=== PATIENT | female | born 1950 | race Hispanic/Latino ===

== ENCOUNTER 2019-12-20 11:51 | Emergency (ER) | payer BC, OTHER ==
--- OUTSIDE RECORDS SUMMARY | 2019-12-20 12:01 | XMS REPORT | Clinical Summary ---
:1950 Author Organization [facility] Address [address] [place] [address] Care Team Providers Name Role Phone Sara Tuan Primary Care Provider Allergies No Known Allergies Medications Medication Sig Dispensed Refills Start Date End Date Status cholecalciferol, Take 5,000 0 Ac tive vitamin D3, 5,000 Units by unit Tab mouth daily. magnesium oxide Take 400 mg 0 Ac tive (MAG-OX) 400 mg by mouth tablet daily. glimepiride (AMARYL) Take 1 mg by 0 Active 1 MG tablet mouth daily . furosemide (LASIX) Take 10 mg by 0 Active 20 MG tablet mouth 2 (two) times daily . lactulose Take 30 mLs 1800 mL 6 12/31/2018 Active (CHRONULAC) 20 (20 g total) gram/30 mL by mouth 2 solutionIndications: (two) times Hepatic daily. encephalopathy (HCC) esomeprazole Take 1 60 capsule 11 05/23/2019 Activ e (NEXIUM) 40 MG capsule (40 capsule mg total) by mouth 2 (two) times daily. lisinopril Take 1 tablet 30 tablet 8 08/13/2019 Acti ve (PRINIVIL,ZESTRIL) 5 (5 mg total) 1 MG by mouth tabletIndications: daily. Nausea and vomiting, intractability of vomiting not specified, unspecified vomiting type, Cirrhosis of liver with ascites, unspecified hepatic cirrhosis type (HCC), Screening for malignant neoplasm rifAXIMin 550 mg Take 1 tablet 180 tablet 3 08/14/2019 Active TabIndications: (550 mg Hepatic total) by encephalopathy (HCC) mouth 2 (two) times daily. traMADol (ULTRAM) 50 Take 50 mg by 0 Active mg tablet mouth nightly . ondansetron Take 1 tablet 30 tablet 3 08/29/2019 Act kyle (ZOFRAN-ODT) 4 MG (4 mg total) disintegrating by mouth tabletIndications: every 8 Nausea and vomiting, (eight) hours intractability of as needed for vomiting not Nausea. specified, unspecified vomiting type, Cirrhosis of liver with ascites, unspecified hepatic cirrhosis type (HCC), Screening for malignant neoplasm RESTASIS 0.05 % INSTILL ONE 5 08/31/2019 A ctive ophthalmic emulsion DROP IN BOTH EYES BID atorvastatin Take 1 tablet 90 tablet 3 12/09/2019 Ac tive (LIPITOR) 80 MG (80 mg total) tabletIndications: by mouth Cirrhosis of liver daily. with ascites, unspecified hepatic cirrhosis type (HCC) clopidogreL (PLAVIX) Take 1 tablet 90 tablet 3 12/09/2019 Active 75 mg tablet (75 mg total) 1 by mouth daily. aspirin 81 MG EC Take 81 mg by 0 Active tablet mouth daily. omeprazole Take 40 mg by 0 Disco ntinued (PRILOSEC) 40 MG mouth daily . 0 capsule atorvastatin Take 20 mg by 0 Dis continued (LIPITOR) 20 MG mouth daily. 0 tabletIndications: Cirrhosis of liver with ascites, unspecified hepatic cirrhosis type (HCC) zinc sulfate Take 1 180 capsule 3 10/24/2017 Disc ontinued (ZINCATE) 220 (50) capsule (220 0 mg mg total) by capsuleIndications: mouth 2 (two) Cirrhosis of liver times daily. with ascites, unspecified hepatic cirrhosis type (HCC) carvedilol (COREG) TK 1 T PO BID 4 01/01/2018 Discontinued 6.25 MG 0 tabletIndications: Cirrhosis of liver with ascites, unspecified hepatic cirrhosis type (HCC), Hyperkalemia, Nausea, Chronic kidney disease, unspecified CKD stage, Screening for malignant neoplasm ondansetron (ZOFRAN) Take 1 tablet 30 tablet 1 02/01/2018 Discontinued 4 MG (4 mg total) 9 tabletIndications: by mouth 2 Cirrhosis of liver (two) times with ascites, daily as unspecified hepatic needed for cirrhosis type Nausea (Take (HCC), Hyperkalemia, as needed for Nausea, Chronic nausea) for kidney disease, up to 7 days. unspecified CKD stage, Screening for malignant neoplasm rifAXIMin 550 mg Take 1 tablet 180 tablet 3 03/08/2018 01 Discontinued TabIndications: (550 mg 9 Other cirrhosis of total) by liver (HCC) mouth 2 (two) times daily. lactulose Take 30 mLs 1800 mL 6 05/30/2018 Discont inued (CHRONULAC) 20 (20 g total) 9 gram/30 mL solution by mouth 2 (two) times daily. rifAXIMin 550 mg Take 1 tablet 180 tablet 3 12/31/2018 02 Discontinued TabIndications: (550 mg 0 Hepatic total) by encephalopathy (HCC) mouth 2 (two) times daily. ondansetron (ZOFRAN) Take 1 tablet 30 tablet 1 05/06/201905/03 4 MG (4 mg total) 9 tabletIndications: by mouth 2 Cirrhosis of liver (two) times with ascites, daily as unspecified hepatic needed for cirrhosis type Nausea (Take (HCC), Hyperkalemia, as needed for Nausea, Chronic nausea) for kidney disease, up to 7 days. unspecified CKD stage, Screening for malignant neoplasm ondansetron Take 1 tablet 20 tablet 0 05/23/2019 Dis continued (ZOFRAN-ODT) 4 MG (4 mg total) 0 disintegrating by mouth 4 tablet (four) times daily as needed for Nausea. ondansetron Take 1 tablet 20 tablet 1 08/13/2019 Dis continued (ZOFRAN-ODT) 4 MG (4 mg total) 0 disintegrating by mouth 4 tabletIndications: (four) times Nausea and vomiting, daily as intractability of needed for vomiting not Nausea. specified, unspecified vomiting type, Cirrhosis of liver with ascites, unspecified hepatic cirrhosis type (HCC), Screening for malignant neoplasm aspirin 81 MG EC Take 1 tablet 90 tablet 3 12/09/2019 12/09/19 2 Discontinued tablet (81 mg total) 0 by mouth daily. aspirin 81 MG EC Take 81 mg by 0 Discontinued tablet mouth daily. 0 Active Problems Problem Noted Date Pre-transplant evaluation for chronic liver disease Pre-transplant evaluation for liver transplant 020 Last Assessment & Plan: She is an acceptable candidate for liver transplant pending formal review at [facility]. Obesity 11/20/2019 Last Assessment & Plan: She was encouraged to work on her diet a nd increase her physical activity as tolerated to aid in weight loss prior to transplant. Secondary esophageal varices without bleeding 10/28/19 Cirrhosis of liver with ascites, unspecified hepatic c irrhosis type 10/27/2017 Portal hypertension 10/27/2017 Portal vein thrombosis 10/27/2017 Last Assessment & Plan: Recent imaging shows severely atretic ma in portal vein. Past imaging from 2017 shows portal vein thrombus. Continue with foll ow up imaging as indicated. Chronic kidney disease, unspecified CKD stage 10/27/19 Last Assessment & Plan: Continue to follow up with Dr. Knowles for management of kidney disease. Immunity status testing 10/26/2017 Screening for malignant neoplasm 10/26/2017 Fatty liver 10/26/2017 Last Assessment & Plan: She has decompensated liver disease due to fatty liver disease. Bilateral edema of lower extremity 12/28/2016 DM (diabetes mellitus) 06/05/2016 Last Assessment & Plan: She will require strict blood glucose co ntrol . 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) (Primary Dx) 12/14/2019 Clinical Support Cardiology Sandoval He Preop michel Vasques MD (Primary Dx) Mahad Taylor RN 12/11/2019 Anesthesia Event Gastroenterology Josh Garcia MD 12/10/2019 Hospital Encounter Pre-Admission Testing 12/10/2019 Travel 12/09/2019 Surgery Sandoval He R & L CATH / MD Caprice CORONARY ANGIOS / PCI 12/09/2019 Hospital Encounter Sandoval He Cirrhos is of liver MD Caprice with ascites, unspecified hep atic cirrhosis type (HCC) 12/07/2019 Clinical Support Cardiology Sandoval He Preop michel Vasques MD (Primary Dx) Mahad Taylor RN 12/03/2019 Orders Only Transplant Hepatology Rafael Decker RN evaluation for liver transplant (Johana dinesh Dx) 12/03/2019 Telephone Transplant Hepatology Augustina Ogden (Spoke Dinesh Conley w/pt and erma carvalho mammogram appt scheduled 01/28 has been cancelled since pt already had mammogram done within the past year.) 11/29/2019 Abstract Transplant Hepatology Felicia Sena 11/28/2019 Documentation Transplant Dyana Bashir 11/28/2019 Abstract Transplant Hepatology Meka Rivas MA 11/27/2019 Office Visit Cardiology Sandoval He Pre-transplan t MD Caprice evaluation for liver transplant (Johana dinesh Dx) 11/27/2019 Hospital Encounter Cardiology Adriano Manisha Pre-tra nsplant evaluation for liver transplant; MD Meera Cirrhosis of li dominic with ascites, unspecified hepatic cirrhosis type (HCC) 11/27/2019 Hospital Encounter Cardiology Sandorri, Manisha Pre-tra nsplant evaluation for liver transplant; MD Meera Cirrhosis of li dominic with ascites, unspecified hepatic cirrhosis type (HCC) 11/27/2019 Hospital Encounter Cardiology Leonardaderi, Manisha Pre-tra nsplant evaluation for liver transplant; MD Meera Cirrhosis of li dominic with ascites, unspecified hepatic cirrhosis type (HCC) 11/27/2019 Hospital Encounter Radiology Khaderi, Manisha Pre-tra nsplant evaluation for liver transplant; MD Meera Cirrhosis of li dominic with ascites, unspecified hepatic cirrhosis type (HCC) 11/27/2019 Office Visit Lab Khaderi, Manisha Pre-transplan t evaluation for liver transplant; MD Meera Cirrhosis of li dominic with ascites, unspecified hepatic cirrhosis type (HCC) 11/27/2019 Orders Only Lab Khaderi, Manisha Pre-transplan t evaluation for liver transplant; MD Meera Cirrhosis of li dominic with ascites, unspecified hepatic cirrhosis type (HCC) 11/27/2019 Orders Only Lab Manisha Oh Pre-transplan t evaluation for liver transplant; MD Meera Cirrhosis of li dominic with ascites, unspecified hepatic cirrhosis type (HCC); Chronic kidney disease, unspecified CKD stage 11/27/2019 Travel 11/26/2019 Telephone Transplant Hepatology Augustina Ogden tmelillie Dinesh Conley (Confirmed 11/01 7 appts w/pt. Co v'd screening done w/pt and spouse Jeanne Manzano. ) 11/22/2019 Documentation Transplant Hepatology Nataly Decker RN 11/20/2019 Hospital Encounter Manisha Oh Pre-tra nsplant evaluation for liver transplant; MD Meera Cirrhosis of li dominic with ascites, unspecified hepatic cirrhosis type (HCC) 11/20/2019 Hospital Encounter Manisha Oh Pre-tra nsplant evaluation for liver transplant; MD Meera Cirrhosis of li dominic with ascites, unspecified hepatic cirrhosis type (HCC) 11/20/2019 Hospital Encounter Manisha Oh Pre-tra nsplant evaluation for liver transplant; MD Meera Cirrhosis of li dominic with ascites, unspecified hepatic cirrhosis type (HCC) 11/20/2019 Evaluation Transplant Hepatology Manisha Oh MD Cook, Amy 11/20/2019 Social Work Transplant Hepatology Manisha Oh MD Springer, Laura L, VACUUM CLEANER REPAIRER 11/20/2019 Evaluation Transplant Hepatology Manisha Oh Pre- transplant evaluation for liver transplant; MD Meera Chronic kidney disease, unspecified CKD stage; Julian Langford Fatty liver; Harish Rodríguez MD Portal vein thr ombosis 11/20/2019 Evaluation Transplant Hepatology Manisha Oh Pre- transplant MD Meera evaluation for liver Law, Felicia transplant (Pr imary R Dx) 11/20/2019 Clinic Visit Transplant Hepatology Bryon Wilson 11/18/2019 Telephone Transplant Hepatology Alin, Liver Transplant Dinesh Conley Pre-evaluation (Confirmed 11/01 0 eval appts w/pt . Also completed cov'd screening w/pt. Spouse Jeanne rosa will accompany the pt to clinic. Cov'd screening done for spouse also.) 11/08/2019 Hospital Encounter Radiology Barry Gonzalez Cirrhosi s of liver with ascites, unspecified hepatic cirrhosis type (HCC) (Primary Dx); MD Darci Nausea and vomi ting, intractability of vomiting not specified, unspecified vomiting type; Screening for m alignant neoplasm 11/08/2019 Orders Only Hepatology Gregory Garrido Abnormal findi ng of diagnostic imaging (Primary Dx); [place], CUSTOMS COMPLIANCE SPECIALIST Screening for m alignant neoplasm; Liver lesion, l eft lobe 11/05/2019 Telephone Central Scheduling Alin, Liver Tra nsplant Ira Pre-evaluation (Scheduled 11/01 & 11/26 eval appt s w/pt & spouse. Pt stated she is already schedul e for mri on this wee k so that was not scheduled also pt is going to schedu le mammo through h er pcp since first avail appt was January 28. Itinerary mailed.) 11/05/2019 Orders Only Transplant Hepatology Jeronimo, Screen ing for MEDINA Ingram malignant neop lasm (Primary Dx) 11/05/2019 Orders Only Transplant Hepatology Jeronimo, Cirrho sis of liver with ascites, unspecified hepatic cirrhosis type (HCC) (Primary Dx); MEDINA Ingram Pre-transplant evaluation for liver transplant; Screening for m alignant neoplasm; Chronic kidney disease, unspecified CKD stage 10/23/2019 Documentation Transplant Hepatology Alin Ira 10/21/2019 Telephone Hepatology Sina, Pqsy-ac-Ntwh LATRELL Nicole 09/17/2019 Telephone Hepatology Misha Tubbs RN 08/29/2019 Orders Only Hepatology Gregory Garrido Nausea and vom iting, intractability of vomiting not specified, unspecified vomiting type; Spring, CUSTOMS COMPLIANCE SPECIALIST Cirrhosis of li dominic with ascites, unspecified hepatic cirrhosis type (HCC); Screening for m alignant neoplasm 08/16/2019 Telephone Hepatology Gregory Garrido transplant Spring, CUSTOMS COMPLIANCE SPECIALIST evaluation discussion 08/15/2019 Telephone Hepatology Gregory Garrido referral place d Glenna, CUSTOMS COMPLIANCE SPECIALIST 08/15/2019 Abstract Transplant Hepatology Julian Langford Jr., MD 08/14/2019 Telephone Hepatology Gregory Garrido OLT referral l abs Spring, CUSTOMS COMPLIANCE SPECIALIST results 08/14/2019 Orders Only Hepatology Gregory Garrido Hepatic Spring, CUSTOMS COMPLIANCE SPECIALIST encephalopathy (HCC) 08/14/2019 Telephone Hepatology Gregory Garrido Results Spring, CUSTOMS COMPLIANCE SPECIALIST 08/13/2019 Office Visit Hepatology Barry Gonzalez Nausea and vom iting, intractability of vomiting not specified, unspecified vomiting type (Primary Dx); MD Darci Cirrhosis of li dominic with ascites, unspecified hepatic cirrhosis type (HCC); Screening for m alignant neoplasm; Hepatic encepha lopathy (HCC) 08/13/2019 Telephone Hepatology Gregory Garrido Results Spring, CUSTOMS COMPLIANCE SPECIALIST 08/12/2019 Telephone Hepatology Brittney Andino FNP 07/29/2019 Telephone Hepatology Maida Hubbard Procedure (En doscopy L (reschedule)) 05/23/2019 Office Visit Hepatology Barry Gonzalez Cirrhosis of l iver with ascites, unspecified hepatic cirrhosis type (HCC) (Primary Dx); MD Darci Screening for malignant neoplasm; Mercedes Carlson gs on diagnostic imaging of liver and biliary tract; NEYDA Villegas Portal vein thr ombosis; Portal hyperten ankush ; Secondary esoph ageal varices without bleeding ; Fatty liver; Hepatic encepha lopathy (HCC); Chronic kidney disease, unspecified CKD stage; Bilateral edema of lower extremity; Immunity status testing 05/23/2019 Documentation Hepatology Mercedes Carlson NP 05/21/2019 Telephone Hepatology Marie Holly PA 05/10/2019 Hospital Encounter Radiology Barry Gonzalez Other ci rrhosis of MD Darci liver (HCC) 05/06/2019 Orders Only Hepatology Maida Owen Cirrhosis of l iver with ascites, unspecified hepatic cirrhosis type (HCC); MELISSA Villafana Hyperkalemia; Nausea; Chronic kidney disease, unspecified CKD stage; Screening for m alignant neoplasm 04/16/2019 Refill Transplant Hepatology Byron Saunders, MEDINA encephalopathy (HCC) 12/31/2018 Office Visit Hepatology Barry Gonzalez Other cirrhosi s of liver (HCC) (Primary Dx); MD Darci Hepatic encephalopathy (HCC); [place], Line Secondary eso phageal varices without bleeding ; [place], ASSISTANT PROFESSOR OF ENGLISH Portal hyperten ankush ; Portal vein thr ombosis; Cirrhosis of li dominic with ascites, unspecified hepatic cirrhosis type (HCC); Fatty liver; Immunity status testing; Screening for m alignant neoplasm after 12/19/2018 Family History Medical History Relation Name Comments Liver disease Mother Relation Name Status Comments Mother Social History Tobacco Use Types Packs/Day Years Used Date Never Smoker Smokeless Tobacco: Never Used Alcohol Use Drinks/Week oz/Week Comments No quit 2013 Sex Assigned at Date Recorded Not on file Job Start Date Occupation Industry Not on file Not on file Not on file Travel History Travel Start Travel End No recent travel history available. Last Filed Vital Signs Vital Sign Reading Time Taken Blood Pressure 158/68 12/17/2019 7:33 AM CDT Pulse 77 12/17/2019 7:33 AM CDT Temperature 37.1 C (98.7 F) 12/17/2019 7:33 AM CDT Respiratory Rate 16 12/17/2019 7:33 AM CDT Oxygen Saturation 98% 12/17/2019 7:33 AM CDT Inhaled Oxygen Concentration - - Weight 79.1 kg (174 lb 6.4 oz) 12/16/2019 5:39 AM CDT Height 152.4 cm (5') 12/16/2019 5:39 AM CDT Body Mass Index 34.06 12/16/2019 5:39 AM CDT Plan of Treatment Date Type Specialty Care Team Description 12/25/2019 Office Visit Cardiology Sandoval He MD [address] [facility] [address] [place], [place] [address] [phone] 01/06/2020 Hospital Encounter Gastroenterology Barry Gonzalez MD [address] [address] [phone] 01/06/2020 Surgery Gastroenterology Barry Gonzalez, UPP ER ENDOSCOPY [address] [address] 0 [phone] 02/11/2020 Office Visit Hepatology Barry Gonzalez MD [address] [address] 0 [phone] Health Maintenance Due Date Last Done Comments BREAST CANCER SCREENING 1950 COLON CANCER SCREENING COLONOSCOPY 1950 DIABETIC EYE EXAM 1960 DIABETIC FOOT EXAM 1960 PNEUMOCOCCAL 65+ HIGH/HIGHEST RISK (1 2015 of 2 - PCV13) INFLUENZA VACCINE (Season Ended) 2020 HEMOGLOBIN A1C 05/29/2020 11/27/2019, 06/04/2016, 06/01/2016 Implants Implanted Type Area Manager Cosmetics Device Identifier Shelf Model / Expiration Serial / Date Lot Stent Synergy Otw [id number] - [id number] IMPLANTS Left: [place] [id number] 05/28/2021 [id number] / Implanted: Qty: 1 on 12/16/2019 by Sandoval He MD Hear t SCI:INTERV / CARDIOLOGY [id number] Procedures Procedure Name Priority Date/Time Associated Diagnosis Comme nts VASCULAR DIAGRAM 12/19/2019 7:52 -SCAN AM CDT CARDIAC CATH REPORT 12/19/2019 7:52 - SCAN AM CDT RHYTHM STRIP - SCAN 12/19/2019 7:52 AM CDT TRANSFUSION SERVICE 12/17/2019 6:12 REPORT - SCAN PM CDT POTASSIUM Routine 12/17/2019 7:41 Results for this AM CDT procedure are i n the results section. POCT-GLUCOSE METER Routine 12/17/2019 7:24 Resul ts for this AM CDT procedure are i n the results section. PROTHROMBIN TIME/INR Routine 12/17/2019 3:33 Res ults for this AM CDT procedure are i n the results section. CBC (HEMOGRAM ONLY) Routine 12/17/2019 3:33 Resu lts for this AM CDT procedure are i n the results section. BASIC METABOLIC Routine 12/17/2019 3:33 Results for this PANEL (7) AM CDT procedure are i n the results section. POCT-GLUCOSE METER Routine 12/16/2019 10:16 Resul ts for this PM CDT procedure are i n the results section. POCT-ACT Routine 12/16/2019 8:25 Results for this PM CDT procedure are i n the results section. POCT-ACT Routine 12/16/2019 6:49 Results for this PM CDT procedure are i n the results section. POCT-ACT Routine 12/16/2019 5:34 Results for this PM CDT procedure are i n the results section. POCT-ACT Routine 12/16/2019 4:13 Results for this PM CDT procedure are i n the results section. POCT-ACT Routine 12/16/2019 2:56 Results for this PM CDT procedure are i n the results section. POCT-ACT Routine 12/16/2019 12:49 Results for this PM CDT procedure are i n the results section. POCT-ACT Routine 12/16/2019 9:10 Results for this AM CDT procedure are i n the results section. POCT-ACT Routine 12/16/2019 8:24 Results for this AM CDT procedure are i n the results section. R & L CATH / 12/16/2019 7:30 Pre-op examination CORONARY ANGIOS / AM CDT PCI Case Notes (1)CASE 6TOP / [id number] Special Needs REQ. IST CASE CBC W/PLT COUNT & Routine 12/16/2019 6:02 AM Res ults for this AUTO DIFFERENTIAL CDT procedure are in the results section. TYPE AND SCREEN, Routine 12/16/2019 6:02 AM Resu lts for this AUTOMATED CDT procedure are i n the results section. PROTHROMBIN TIME/INR Routine 12/16/2019 6:02 AM Results for this CDT procedure are i n the results section. CBC W/PLT COUNT & Routine 12/16/2019 6:02 AM Res ults for this AUTO DIFFERENTIAL CDT procedure are in the results section. BASIC METABOLIC PANEL Routine 12/16/2019 6:02 AM Results for this (7) CDT procedure are i n the results section. SARS-COV2/RT-PCR Routine 12/14/2019 10:59 AM Preop testing Res ults for this ([facility] & REF LABS) CDT procedure are in the results section. CARDIAC CATH REPORT - 12/11/2019 7:30 AM SCAN CDT TRANSFUSION SERVICE 12/10/2019 6:53 PM REPORT - SCAN CDT R & L CATH / CORONARY 12/09/2019 7:30 AM Preoperative ANGIOS / PCI CDT clearance Case Notes (1)CASE 6TOP Special Needs REQ. IST CASE CBC W/PLT COUNT & STAT 12/09/2019 6:35 AM Res ults for this AUTO DIFFERENTIAL CDT procedure are in the results section. TYPE AND SCREEN, STAT 12/09/2019 6:35 AM Resu lts for this AUTOMATED CDT procedure are i n the results section. PROTHROMBIN TIME/INR STAT 12/09/2019 6:35 AM Results for this CDT procedure are i n the results section. CBC W/PLT COUNT & STAT 12/09/2019 6:35 AM Res ults for this AUTO DIFFERENTIAL CDT procedure are in the results section. SARS-COV2/RT-PCR Routine 12/07/2019 9:29 AM Preop testing Res ults for this ([facility] & REF LABS) CDT procedure are in the results section. TRANSFUSION SERVICE 11/28/2019 5:53 PM REPORT - SCAN CDT TRANSFUSION SERVICE 11/28/2019 5:53 PM REPORT - SCAN CDT NM MYOCARDIAL Routine 11/27/2019 1:00 PM Pre-transplant Resul ts for this PERFUSION SPECT, CDT evaluation for liver pro cedure are in PHARM(LEXISCAN) transplant the results Cirrhosis of liver section. with ascites, unspecified hepatic cirrhosis type (HCC) TREADMILL Routine 11/27/2019 10:42 AM Results for this TOLERANCE(NON-NUCLEAR CDT proced ure are in TREADMILL) the results section. ECG 12-LEAD Routine 11/27/2019 10:36 AM Results for this CDT procedure are i n the results section. ECG 12-LEAD Routine 11/27/2019 10:36 AM CDT Procedure Note - Interface, External Ris In - 11/27/2019 11:01 AM CDT Ventricular Rate 72 BPM Atrial Rate 72 BPM P-R Interval 148 ms QRS Duration 80 ms Q-T Interval 422 ms QTC Calculation(Bazett) 462 ms P [place] 65 degrees R [place] 67 degrees T [place] 50 degrees Normal sinus rhythm Normal ECG ECHO W CONTRAST & Routine 11/27/2019 Pre-transplant evaluati on Results for DOPPLER 9:14 AM CDT for liver transp lant this procedure Cirrhosis of liver with are in the ascites, unspecified results hepatic cirrhosis type secti on. (HCC) ECG 12-LEAD Routine 11/27/2019 Pre-transplant evaluation Re sults for 8:20 AM CDT for liver transp lant this procedure Cirrhosis of liver with are in the ascites, unspecified results hepatic cirrhosis type secti on. (HCC) CAROTID DOPPLER Routine 11/27/2019 Pre-transplant evaluation Results for BILATERAL 8:15 AM CDT for liver transp lant this procedure Cirrhosis of liver with are in the ascites, unspecified results hepatic cirrhosis type secti on. (HCC) URINALYSIS W/ Routine 11/27/2019 Pre-transplant evaluation R esults for MICROSCOPIC 7:52 AM CDT for liver transp lant this procedure Cirrhosis of liver with are in the ascites, unspecified results hepatic cirrhosis type secti on. (HCC) BLOOD GAS, ARTERIAL Routine 11/27/2019 Pre-transplant evalua tion Results for 7:32 AM CDT for liver transp lant this procedure Cirrhosis of liver with are in the ascites, unspecified results hepatic cirrhosis type secti on. (HCC) BLOOD TYPING, Routine 11/27/2019 Pre-transplant evaluation R esults for AUTOMATED 7:19 AM CDT for liver transp lant this procedure Cirrhosis of liver with are in the ascites, unspecified results hepatic cirrhosis type secti on. 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 (HCC) TYPE AND SCREEN, Routine 11/27/2019 Pre-transplant evaluatio n Results for AUTOMATED 6:59 AM CDT for liver transp lant this procedure Cirrhosis of liver with are in the ascites, unspecified results hepatic cirrhosis type secti on. (HCC) TARAN TITER AND PATTERN Routine 11/27/2019 Pre-transplant eval uation Results for 6:59 AM CDT for liver transp lant this procedure Cirrhosis of liver with are in the ascites, unspecified results hepatic cirrhosis type secti on. (HCC) CRYPTOCOCCAL ANTIGEN Routine 11/27/2019 Pre-transplant evalu ation Results for 6:59 AM CDT for liver transp lant this procedure Cirrhosis of liver with are in the ascites, unspecified results hepatic cirrhosis type secti on. 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 (HCC) RUBELLA ANTIBODY, IGG Routine 11/27/2019 Pre-transplant eval uation Results for 6:59 AM CDT for liver transp lant this procedure Cirrhosis of liver with are in the ascites, unspecified results hepatic cirrhosis type secti on. 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 (HCC) EBV ANTIBODY, IGM Routine 11/27/2019 Pre-transplant evaluati on Results for 6:59 AM CDT for liver transp lant this procedure Cirrhosis of liver with are in the ascites, unspecified results hepatic cirrhosis type secti on. 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 (HCC) HIV-1 ANTIGEN WITH Routine 11/27/2019 Pre-transplant evaluat ion Results for HIV-1/2 ANTIBODY 6:59 AM CDT for liver trans plant this procedure Cirrhosis of liver with are in the ascites, unspecified results hepatic cirrhosis type secti on. 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 (HCC) T4 Routine 11/27/2019 Pre-transplant evaluation Re sults for 6:59 AM CDT for liver transp lant this procedure Cirrhosis of liver with are in the ascites, unspecified results hepatic cirrhosis type secti on. 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 (HCC) URIC ACID Routine 11/27/2019 Pre-transplant evaluation Re sults for 6:59 AM CDT for liver transp lant this procedure Cirrhosis of liver with are in the ascites, unspecified results hepatic cirrhosis type secti on. 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 (HCC) HEMOGLOBIN A1C Routine 11/27/2019 Pre-transplant evaluation Results for 6:59 AM CDT for liver transp lant this procedure Cirrhosis of liver with are in the ascites, unspecified results hepatic cirrhosis type secti on. (HCC) LIPID PANEL Routine 11/27/2019 Chronic kidney disease, Resu lts for 6:59 AM CDT unspecified CKD stage this procedure Pre-transplant evaluation ar e in the for liver transp lant results Cirrhosis of liver with sect ion. ascites, unspecified hepatic cirrhosis type (HCC) IRON, TIBC, % SAT. Routine 11/27/2019 Pre-transplant evaluat ion Results for (WITHOUT FERRITIN) 6:59 AM CDT for liver tra nsplant this procedure Cirrhosis of liver with are in the ascites, unspecified results hepatic cirrhosis type secti on. 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 (HCC) MAGNESIUM Routine 11/27/2019 Pre-transplant evaluation Re sults for 6:59 AM CDT for liver transp lant this procedure Cirrhosis of liver with are in the ascites, unspecified results hepatic cirrhosis type secti on. (HCC) CALCIUM, IONIZED Routine 11/27/2019 Pre-transplant evaluatio n Results for 6:59 AM CDT for liver transp lant this procedure Cirrhosis of liver with are in the ascites, unspecified results hepatic cirrhosis type secti on. (HCC) GAMMA GLUTAMYL Routine 11/27/2019 Pre-transplant evaluation Results for TRANSFERASE (GGT) 6:59 AM CDT for liver soliman splant this procedure Cirrhosis of liver with are in the ascites, unspecified results hepatic cirrhosis type secti on. (HCC) BILIRUBIN, DIRECT Routine 11/27/2019 Pre-transplant evaluati on Results for 6:59 AM CDT for liver transp lant this procedure Cirrhosis of liver with are in the ascites, unspecified results hepatic cirrhosis type secti on. (HCC) COMPREHENSIVE Routine 11/27/2019 Pre-transplant evaluation R esults for METABOLIC PANEL 6:59 AM CDT for liver transp lant this procedure Cirrhosis of liver with are in the ascites, unspecified results hepatic cirrhosis type secti on. (HCC) RUBEOLA ANTIBODY IGG Routine 11/27/2019 Pre-transplant evalu ation Results for 6:58 AM CDT for liver transp lant this procedure Cirrhosis of liver with are in the ascites, unspecified results hepatic cirrhosis type secti on. (HCC) MUMPS ANTIBODY, IGG Routine 11/27/2019 Pre-transplant evalua tion Results for 6:58 AM CDT for liver transp lant this procedure Cirrhosis of liver with are in the ascites, unspecified results hepatic cirrhosis type secti on. (HCC) HEPATITIS B CORE Routine 11/27/2019 Pre-transplant evaluatio n Results for ANTIBODY, IGM 6:58 AM CDT for liver transp lant this procedure Cirrhosis of liver with are in the ascites, unspecified results hepatic cirrhosis type secti on. (HCC) HEPATITIS A ANTIBODY, Routine 11/27/2019 Pre-transplant eval uation Results for IGM 6:58 AM CDT for liver transp lant this procedure Cirrhosis of liver with are in the ascites, unspecified results hepatic cirrhosis type secti on. (HCC) HEPATITIS A ANTIBODY, Routine 11/27/2019 Pre-transplant eval uation Results for IGG 6:58 AM CDT for liver transp lant this procedure Cirrhosis of liver with are in the ascites, unspecified results hepatic cirrhosis type secti on. (HCC) T3 Routine 11/27/2019 Pre-transplant evaluation Re sults for 6:58 AM CDT for liver transp lant this procedure Cirrhosis of liver with are in the ascites, unspecified results hepatic cirrhosis type secti on. (HCC) ZINC Routine 11/27/2019 Pre-transplant evaluation Re sults for 6:58 AM CDT for liver transp lant this procedure Cirrhosis of liver with are in the ascites, unspecified results hepatic cirrhosis type secti on. (HCC) CARCINOEMBRYONIC Routine 11/27/2019 Pre-transplant evaluatio n Results for ANTIGEN (CEA) 6:58 AM CDT for liver transp lant this procedure Cirrhosis of liver with are in the ascites, unspecified results hepatic cirrhosis type secti on. (HCC) CARBOHYDRATE ANTIGEN Routine 11/27/2019 Pre-transplant evalu ation Results for 19-9 (CA 19-9) 6:58 AM CDT for liver transp lant this procedure Cirrhosis of liver with are in the ascites, unspecified results hepatic cirrhosis type secti on. (HCC) VITAMIN D, 25-HYDROXY Routine 11/27/2019 Pre-transplant eval uation Results for 6:58 AM CDT for liver transp lant this procedure Cirrhosis of liver with are in the ascites, unspecified results hepatic cirrhosis type secti on. (HCC) FERRITIN Routine 11/27/2019 Pre-transplant evaluation Re sults for 6:58 AM CDT for liver transp lant this procedure Cirrhosis of liver with are in the ascites, unspecified results hepatic cirrhosis type secti on. (HCC) TRANSFERRIN Routine 11/27/2019 Pre-transplant evaluation Re sults for 6:58 AM CDT for liver transp lant this procedure Cirrhosis of liver with are in the ascites, unspecified results hepatic cirrhosis type secti on. (HCC) ACTIN (SMOOTH MUSCLE) Routine 11/27/2019 Pre-transplant eval uation Results for ANTIBODY, IGG 6:58 AM CDT for liver transp lant this procedure Cirrhosis of liver with are in the ascites, unspecified results hepatic cirrhosis type secti on. (HCC) MITOCHONDRIA M2 Routine 11/27/2019 Pre-transplant evaluation Results for ANTIBODY (IGG) 6:58 AM CDT for liver transp lant this procedure Cirrhosis of liver with are in the ascites, unspecified results hepatic cirrhosis type secti on. (HCC) APTT Routine 11/27/2019 Pre-transplant evaluation Re sults for 6:58 AM CDT for liver transp lant this procedure Cirrhosis of liver with are in the ascites, unspecified results hepatic cirrhosis type secti on. (HCC) PROTHROMBIN TIME/INR Routine 11/27/2019 Pre-transplant evalu ation Results for 6:58 AM CDT for liver transp lant this procedure Cirrhosis of liver with are in the ascites, unspecified results hepatic cirrhosis type secti on. (HCC) FIBRINOGEN Routine 11/27/2019 Pre-transplant evaluation Re sults for 6:58 AM CDT for liver transp lant this procedure Cirrhosis of liver with are in the ascites, unspecified results hepatic cirrhosis type secti on. (HCC) XR MANDIBLE 4 VIEWS Routine 11/20/2019 Pre-transplant evalua tion Results for MIN 1:00 PM CDT for liver transp lant this procedure Cirrhosis of liver with are in the ascites, unspecified results hepatic cirrhosis type secti on. (HCC) XR CHEST 2 VIEWS Routine 11/20/2019 Pre-transplant evaluatio n Results for 12:50 PM CDT for liver transp lant this procedure Cirrhosis of liver with are in the ascites, unspecified results hepatic cirrhosis type secti on. (HCC) XR DXA BONE DENSITY Routine 11/20/2019 Pre-transplant evalua tion Results for STUDY 12:44 PM CDT for liver transp lant this procedure Cirrhosis of liver with are in the ascites, unspecified results hepatic cirrhosis type secti on. (HCC) MR ABDOMEN WITH & Routine 11/08/2019 Nausea and vomiting, Re sults for WITHOUT IV CONTRAST 10:45 AM CDT intractability of vom iting this procedure not specified, unspecified a re in the vomiting type results Cirrhosis of liver with sect ion. ascites, unspecified hepatic cirrhosis type (HCC) Screening for malignant neoplasm POCT-CREATININE Routine 11/08/2019 Results for 10:13 AM CDT this procedure are in the results section. CBC W/PLT COUNT & AUTO Routine 08/13/2019 Nausea and vomitin g, Results for DIFFERENTIAL 3:47 PM OPERATIONS PROCESSOR intractability of vomiting t his procedure not specified, unspecified a re in the vomiting type results Cirrhosis of liver with sect ion. ascites, unspecified hepatic cirrhosis type (HCC) Screening for malignant neoplasm TSH Routine 08/13/2019 Nausea and vomiting, Results for 3:47 PM OPERATIONS PROCESSOR intractability of vomiting t his procedure not specified, unspecified a re in the vomiting type results Cirrhosis of liver with sect ion. ascites, unspecified hepatic cirrhosis type (HCC) Screening for malignant neoplasm BASIC METABOLIC PANEL Routine 08/13/2019 Nausea and vomiting , Results for (7) 3:47 PM OPERATIONS PROCESSOR intractability of vomiting t his procedure not specified, unspecified a re in the vomiting type results Cirrhosis of liver with sect ion. ascites, unspecified hepatic cirrhosis type (HCC) Screening for malignant neoplasm HEPATIC FUNCTION PANEL Routine 08/13/2019 Nausea and vomitin g, Results for 3:47 PM OPERATIONS PROCESSOR intractability of vomiting t his procedure not specified, unspecified a re in the vomiting type results Cirrhosis of liver with sect ion. ascites, unspecified hepatic cirrhosis type (HCC) Screening for malignant neoplasm CBC W/PLT COUNT & AUTO Routine 08/13/2019 Nausea and vomitin g, Results for DIFFERENTIAL 3:47 PM OPERATIONS PROCESSOR intractability of vomiting t his procedure not specified, unspecified a re in the vomiting type results Cirrhosis of liver with sect ion. ascites, unspecified hepatic cirrhosis type (HCC) Screening for malignant neoplasm PROTHROMBIN TIME/INR Routine 08/13/2019 Nausea and vomiting, Results for 3:47 PM OPERATIONS PROCESSOR intractability of vomiting t his procedure not specified, unspecified a re in the vomiting type results Cirrhosis of liver with sect ion. ascites, unspecified hepatic cirrhosis type (HCC) Screening for malignant neoplasm ALPHA FETOPROTEIN Routine 08/13/2019 Nausea and vomiting, Re sults for (AFP), TUMOR MARKER 3:47 PM OPERATIONS PROCESSOR intractability of vom iting this procedure not specified, unspecified a re in the vomiting type results Cirrhosis of liver with sect ion. ascites, unspecified hepatic cirrhosis type (HCC) Screening for malignant neoplasm CBC W/PLT COUNT & AUTO Routine 05/23/2019 Cirrhosis of liver with Results for DIFFERENTIAL 10:37 AM OPERATIONS PROCESSOR ascites, unspecified this pr ocedure hepatic cirrhosis type are i n the (HCC) results section. ALPHA FETOPROTEIN Routine 05/23/2019 Screening for malignant Results for (AFP), TUMOR MARKER 10:37 AM OPERATIONS PROCESSOR neoplasm this pro cedure are in the results section. PROTHROMBIN TIME/INR Routine 05/23/2019 Cirrhosis of liver w ith Results for 10:37 AM OPERATIONS PROCESSOR ascites, unspecified this pr ocedure hepatic cirrhosis type are i n the (HCC) results section. CBC W/PLT COUNT & AUTO Routine 05/23/2019 Cirrhosis of liver with Results for DIFFERENTIAL 10:37 AM OPERATIONS PROCESSOR ascites, unspecified this pr ocedure hepatic cirrhosis type are i n the (HCC) results section. HEPATIC FUNCTION PANEL Routine 05/23/2019 Cirrhosis of liver with Results for 10:37 AM OPERATIONS PROCESSOR ascites, unspecified this pr ocedure hepatic cirrhosis type are i n the (HCC) results section. BASIC METABOLIC PANEL Routine 05/23/2019 Cirrhosis of liver with Results for (7) 10:37 AM OPERATIONS PROCESSOR ascites, unspecified this pr ocedure hepatic cirrhosis type are i n the (HCC) results section. MR ABDOMEN WITH & Routine 05/10/2019 Other cirrhosis of live r Results for WITHOUT IV CONTRAST 8:50 AM OPERATIONS PROCESSOR (HCC) this pro cedure are in the results section. POCT-CREATININE Routine 05/10/2019 Results for 8:11 AM OPERATIONS PROCESSOR this procedure are in the results section. BASIC METABOLIC PANEL Routine 12/27/2018 Cirrhosis of liver with Results for (7) 4:21 PM CDT ascites, unspecified this pr ocedure hepatic cirrhosis type are i n the (HCC) results Immunity status testing section. Cancer screening HEPATIC FUNCTION PANEL Routine 12/27/2018 Cirrhosis of liver with Results for 4:21 PM CDT ascites, unspecified this pr ocedure hepatic cirrhosis type are i n the (HCC) results Immunity status testing section. Cancer screening CBC W/PLT COUNT & AUTO Routine 12/27/2018 Cirrhosis of liver with Results for DIFFERENTIAL 4:21 PM CDT ascites, unspecified this pr ocedure hepatic cirrhosis type are i n the (HCC) results Immunity status testing section. Cancer screening PROTHROMBIN TIME/INR Routine 12/27/2018 Cirrhosis of liver w ith Results for 4:21 PM CDT ascites, unspecified this pr ocedure hepatic cirrhosis type are i n the (HCC) results Immunity status testing section. Cancer screening ALPHA FETOPROTEIN Routine 12/27/2018 Cirrhosis of liver with Results for (AFP), TUMOR MARKER 4:21 PM CDT ascites, unspecified this procedure hepatic cirrhosis type are i n the (HCC) results Immunity status testing section. Cancer screening after 12/19/2018 Results VASCULAR DIAGRAM -SCAN (12/19/2019 7:52 AM CDT) Narrative Performed At This result has an attachment that is no t available. CARDIAC CATH REPORT - SCAN (12/19/2019 7:52 AM CDT) Narrative Performed At This result has an attachment that is no t available. RHYTHM STRIP - SCAN (12/19/2019 7:52 AM CDT) Narrative Performed At This result has an attachment that is no t available. TRANSFUSION SERVICE REPORT - SCAN (12/17/2019 6:12 PM CDT)Only the most recent of4 resultswithin the time period is included. Narrative Performed At This result has an attachment that is no t available. Potassium (12/17/2019 7:41 AM CDT) Potassium 5.1 3.5 - 5.1 meq/L [facility] Specimen Blood Narrative Performed At Electronics Tech ID - FRANKIE Sawyer [facility] Performing Organization Address City/[facility]/Zipcode Phone Number [address] [address] CENTER POC-Glucose meter (12/17/2019 7:24 AM CDT)Only the most recent of2 results within the time period is included. POC-Glucose Meter 147 (H)Comment: : TESTED 70 - 110 mg/dL [facility] AT [address], [id number]: Electronics Tech/Rock Crusher Operator ID = [id number] for CANDY MILLS Specimen Blood Performing Organization Address [facility] Phone Number [address] [address] [place] Prothrombin time/INR (12/17/2019 3:33 AM CDT)Only the most recent of7 results within the time period is included. Protime 21.1 (H) 11.9 - 14.2 seconds [facility] INR 1.9 <=5.9 [facility] Specimen Blood Narrative Performed At Effective 11/28/2018: PT Reference Range [facility] Change New: 11.9-14.2Previous: 11.7-14.7 RECOMMENDED COUMADIN/WARFARIN INR THERAPY RANGES STANDARD DOSE: 2.0-3.0Includes: PROPHYLAXIS for venous thrombosis, systemic embolization; TREATMENT for venous thrombosis and/or pulmonary embolus. HIGH RISK: Target INR is 2.5-3.5 for patients wiht mechanical heart valves. Performing Organization Address City/[facility] Phone Number [address] [address] [place] CBC (Hemogram only) (12/17/2019 3:33 AM CDT) WBC 5.0 3.5 - 10.5 K/L [facility] RBC 2.42 (L) 3.93 - 5.22 M/L [facility] Hemoglobin 7.9 (L) 11.2 - 15.7 GM/DL [facility] Hematocrit 24.8 (L) 34.1 - 44.9 % [facility] MCV 102.5 (H) 79.4 - 94.8 fL [facility] MCH 32.6 (H) 25.6 - 32.2 pg [facility] MCHC 31.9 (L) 32.2 - 35.5 GM/DL [facility] RDW 15.1 (H) 11.7 - 14.4 % [facility] Platelets 59 (L) 150 - 450 K/CU MM [facility] MPV 11.9 9.4 - 12.3 fL [facility] nRBC 0 0 - 0 /100 WBC [facility] Specimen Blood Performing Organization Address City/[facility]/Zipcode Phone Number [address] [address] [place] Basic metabolic panel (12/17/2019 3:33 AM CDT)Only the most recent of5 results within the time period is included. Sodium 137 136 - 145 meq/L [facility] Potassium 5.8 (H)Comment: Specimen 3.5 - 5.1 meq/L [facility] slightly hemolyzed [facility] Chloride 114 (H) 98 - 107 meq/L [facility] CO2 19 (L) 22 - 29 meq/L [facility] BUN 27 (H) 7 - 21 mg/dL [facility] Creatinine 1.85 (H)Comment: Specimen 0.57 - 1.25 mg/dL [facility] slightly hemolyzed [facility] Glucose 117 (H) 70 - 105 mg/dL [facility] Calcium 7.3 (L) 8.4 - 10.2 mg/dL [facility] EGFR 27Comment: ESTIMATED GFR IS mL/min/1.73 sq m [facility] NOT ACCURATE [facility] CLEARANCE IN PREDICTING GLOMERULAR FILTRATION RATE. ESTIMATED GFR IS NOT APPLICABLE FOR DIALYSIS PATIENTS. Specimen Blood Narrative Performed At Electronics Tech ID - POOJA Eze [facility] Specimen slightly icteric Performing Organization Address City/State/Zipcode Phone Number [address] [phone] CENTER POC ACTIVATED CLOTTING TIME (12/16/2019 8:25 PM CDT)Only the most recent of8 resultswithin the time period is included. Activated Clotting Time 164Comment: : 74-137 sec [facility] seconds, Baseline: TESTED [facility] AT [address], [id number]: Electronics Tech/Rock Crusher Operator ID = [id number] for ASHKAN [place] Specimen Blood Performing Organization Address City/[facility]/Zipcode Phone Number [address] [address] CENTER Type and screen, automated (12/16/2019 6:02 AM CDT)Only the most recent of3 resultswithin the time period is included. ABO/RH AUTOMATED (BEAKER) O POSITIVE [facility] Ab Scrn NEGATIVE [facility] Specimen Blood Performing Organization Address City/State/Zipcode Phone Number [facility] [address] [place] [address] CBC with platelet count + automated diff (12/16/2019 6:02 AM CDT)Only the most recent of5 resultswithin the time period is included. WBC 4.7 3.5 - 10.5 K/L [facility] RBC 2.63 (L) 3.93 - 5.22 M/L [facility] Hemoglobin 8.6 (L) 11.2 - 15.7 GM/DL [facility] Hematocrit 26.8 (L) 34.1 - 44.9 % [facility] MCV 101.9 (H) 79.4 - 94.8 fL [facility] MCH 32.7 (H) 25.6 - 32.2 pg [facility] MCHC 32.1 (L) 32.2 - 35.5 GM/DL [facility] RDW 15.3 (H) 11.7 - 14.4 % [facility] Platelets 60 (L) 150 - 450 K/CU MM [facility] MPV 11.5 9.4 - 12.3 fL [facility] nRBC 0 0 - 0 /100 WBC [facility] % Neutros 53 % [facility] % Lymphs 30 % [facility] % Monos 11 % [facility] % Eos 4 % [facility] % Baso 1 % [facility] # Neutros 2.50 1.56 - 6.13 K/L [facility] # Lymphs 1.42 1.18 - 3.74 K/L [facility] # Monos 0.53 (H) 0.24 - 0.36 K/L [facility] # Eos 0.18 0.04 - 0.36 K/L [facility] # Baso 0.06 0.01 - 0.08 K/L [facility] Immature 0 0 - 1 % [facility] Granulocytes-Relative [facility] Specimen Blood Performing Organization Address City/State/Zipcode Phone Number [address] [address] CENTER SARS-CoV2/RT-PCR ([facility] Ref [facility]) (12/14/2019 10:59 AM CDT)Only the most recent of2 resultswithin the time period is included. SARS-COV2/RT-PCR Negative Not Detected, Negative [facility] NON -INTERFACED REFERENCE LABS SARS-COV-2 PERFORMING LAB CPL SLE N ON-INTERFACED REFERENCE LABS Specimen Other Performing Organization Address City/[facility] Phone Number [facility] NON-INTERFACED REFERENCE LABS CARDIAC CATH REPORT - SCAN (12/11/2019 7:30 AM CDT) Narrative Performed At This result has an attachment that is no t available. NM myocardial perfusion SPECT, pharm (11/27/2019 1:00 PM CDT) Specimen Narrative Performed At FINAL REPORT [facility] PROCEDURE:Rest/Stress MYOCAR DIAL PERFUSION SPECT with regadenoson\XA9\ CPT CODE:31900 INDICATION:Preoperative eval uation for liver transplant HISTORY:Cardiac risk factors: Diab etes, hypertension, family history. Other cardiovascular his tory: No reported CAD. PROTOCOL:10.8 mCi of Tc-99m sestamibi was injected iv at rest, and SPECT (tomographic) images were obta ined. Also, 31.3 mCi of Tc-99m sestamibi was injected iv at expe cted peak pharmacologic effect, and gated SPECT images were obta ined. PRELIMINARY STRESS TEST DATA FROM [facility]: Pharmacologic stress was by 10-second iv infusion of 0.4 mg of regadenoson. Radiotracer was injected 30 seconds after start of stress. Heart rate was 73 beats/min at r est and 86 beats/min (56 % of MPHR) at tracer injection. BP was 147/65 mmHg at rest and 138/62 mmHg at tracer injection. Stress was stopped for predetermined endpoint. The patient experienced nausea and weakn ess; treatment was not required. Preliminary ECG evaluation rev ealed sinus rhythm at rest and no ischemic changes with stress. ([facility] ECG interpretation and other stress and monitoring data are rep orted separately by Cardiology.) IMAGING FINDINGS:Study quality is good . Images obtained after rest and stress injections show normal L V activity. Patient motion artifact is noted. LV and RV volumes tasha ear normal. Gated images obtained at rest after stress show jes l LV wall motion and thickening. QGS LVEF is >70%. IMPRESSION: 1. Normal study.2. Appropriate pha rmacologic stress. 3. Normal myocardial perfusion.4. No rmal resting LV function.5. Normal extracardiac tracer distribution. 6. No prior study. Signed: José Miguel Pollard MD Report Verified Date/Time:11/27/2019 15:53:06 Reading Location: [address] Reading Room Procedure Note Interface, External Ris In - 11/27/2019 3:55 PM CDT FINAL REPORT PROCEDURE: Rest/Stress MYOCARDIAL P ERFUSION SPECT with regadenoson\XA9\ CPT CODE: 93523 INDICATION: Preoperative evaluation for liver transplant HISTORY: Cardiac risk factors: Diabetes, hypertension, family history. Other cardiovascular his tory: No reported CAD. PROTOCOL: 10.8 mCi of Tc-99m sestam ibi was injected iv at rest, and SPECT (tomographic) images were obta ined. Also, 31.3 mCi of Tc-99m sestamibi was injected iv at expe cted peak pharmacologic effect, and gated SPECT images were obta ined. PRELIMINARY STRESS TEST DATA FROM [facility]: Pharmacologic stress was by 10-second iv infusion of 0.4 mg of regadenoson. Radiotracer was injected 30 seconds after start of stress. Heart rate was 73 beats/min at r est and 86 beats/min (56 % of MPHR) at tracer injection. BP was 147/65 mmHg at rest and 138/62 mmHg at tracer injection. Stress was stopped for predetermined endpoint. The patient experienced nausea and weakn ess; treatment was not required. Preliminary ECG evaluation rev ealed sinus rhythm at rest and no ischemic changes with stress. ([facility] ECG interpretation and other stress and monitoring data are rep orted separately by Cardiology.) IMAGING FINDINGS: Study quality i s good. Images obtained after rest and stress injections show normal L V activity. Patient motion artifact is noted. LV and RV volumes tasha ear normal. Gated images obtained at rest after stress show jes l LV wall motion and thickening. QGS LVEF is >70%. IMPRESSION: 1. Normal study. 2. Appro priate pharmacologic stress. 3. Normal myocardial perfusion. 4. Norm al resting LV function. 5. Normal extracardiac tracer distribution. 6. No prior study. Signed: José Miguel Pollard MD Report Verified Date/Time: 11/27/2019 1 5:53:06 Reading Location: [address] [facility] [place] [facility] Reading Room Performing Organization Address City/State/Zipcode Phone Number GE RIS Treadmill tolerance(Non-Nuclear Treadmill) (11/27/2019 10:42 AM CDT) Specimen Narrative Performed At Protocol Name REGTRACEEOSCASSIUS GE MUSE Time In Exercise Phase 00:01:00 Max. Systolic BP 138 mmHg Max Diastolic BP 62 mmHg Max Heart Rate 86 BPM Max Predicted Heart Rate 151 BPM Reason For Termination Predetermined end point Reason for Test pre-transplant evaluatio n for liver transplant Target HR Formula (220 - Age)*100% Arrhythmias none Resting ECG Normal sinus rhythm ST Changes No Significant Changes Overall Impression Indeterminate due to pharmacological stress Nuclear data reported separately Chest Pain none HR Response To Exercise BP Response To Exercise atorvastatin, furosemide, lisinopril Confirmed by fellow Randall Ontiveros ([id number]) on 11/27/2019 12:20:58 PM Confirmed by Gilles AGUILAR BASANT ([id number]) on 11/27/2019 4: 29:31 PM Procedure Note Interface, External Ris In - 11/27/2019 4:30 PM CDT Protocol Name IFTIKHAR Time In Exercise Phase 00:01:00 Max. Systolic BP 138 mmHg Max Diastolic BP 62 mmHg Max Heart Rate 86 BPM Max Predicted Heart Rate 151 BPM Reason For Termination Predetermined end point Reason for Test pre-transplant evaluatio n for liver transplant Target HR Formula (220 - Age)*100% Arrhythmias none Resting ECG Normal sinus rhythm ST Changes No Significant Changes Overall Impression Indeterminate due to pharmacological stress Nuclear data reported separately Chest Pain none HR Response To Exercise BP Response To Exercise atorvastatin, furosemide, lisinopril Confirmed by fellow Randall Ontiveros [id number]) on 11/27/2019 12:20:58 PM Confirmed by Gilles AGUILAR BASANT ([id number]) o n 11/27/2019 4:29:31 PM Performing Organization Address City/[facility] Phone Number GE MUSE ECG 12 lead (11/27/2019 10:36 AM CDT)Only the most recent of2 resultswithin the time period is included. Specimen Narrative Performed At Ventricular Rate 72 BPM GE MUSE Atrial Rate 72 BPM P-R Interval 148 ms QRS Duration 80 ms Q-T Interval 422 ms QTC Calculation(Bazett) 462 ms P [place] 65 degrees R [place] 67 degrees T [place] 50 degrees Normal sinus rhythm Normal ECG Confirmed by MD Hua Roberto ([id number]) on 11/26 5:25:36 PM Procedure Note Interface, External Ris In - 11/27/2019 5:25 PM CDT Ventricular Rate 72 BPM Atrial Rate 72 BPM P-R Interval 148 ms QRS Duration 80 ms Q-T Interval 422 ms QTC Calculation(Bazett) 462 ms P [place] 65 degrees R [place] 67 degrees T [place] 50 degrees Normal sinus rhythm Normal ECG Confirmed by MD Hua Roberto ([id number]) on 11/27/2019 5:25:36 PM Performing Organization Address City/[facility] Phone Number GE MUSE ECHO W CONTRAST & DOPPLER (11/27/2019 9:14 AM CDT) Ejection Fraction [facility] ECHO HEAR TLAB [employer] [facility] Specimen Narrative Performed At Transthoracic Echocardiography Report (T TE) [facility] ECHO HEARTLAB [facility] Demographics Patient NameGALENTOJORDYN FrancesDate of Study11/27/2019 VIVIAN Gender Female Visit [id number] Race Unknown NumberOP Number Date of 1950 Elana Estes Physician Age 69 year(s) SonographAngel Celeste son, [facility] Sem Manager Nathan RdzMelo Noragail Interpreting Isaac chicas Physician Procedure Type of Study TTE procedure:2DECHO W/CONTRAST & DOPPLER (Routine) Indications:Pre transplant evaluation fo r liver. Clinical History Cirrhosis, PAOLA, DM, Obesity, HLD HGB 9.0 HCT 26.9 % Contrast Medium: Bubble Study. Height: 60 inches Weight: 77.56 kg (171 lbs) BSA: 1.75 m^2 BMI: 33.4 kg/m^2 HR: 72 bpm BP: 147/68 mmHg Summary Estimated LVEF by qualitative assessment is normal (>60%) . IV saline contrast injection is probably negative for a PFO (patent foramen ovale) at rest and post Valsalv a . IV saline contrast with delayed imaging is suggestive of intra pulmonic shunting. The degree of intrapulmonary shunting appears to be slight . Signature Findings Left Ventricle The left ventricle is chamber size (by PSLAX di mension) is normal (female - LVIDd 3.8-5 .2cm) . No rmal LV wall thickness. Al l of the LV segments contract normally . Gl obal LV systolic function normal . Es timated LVEF by qualitative assessment i s normal (> 60%) . Gr aubrey 2 diastolic dysfunction (moderately increased LA pressure). Left AtriumLA size is moderately enlarged (42-48 ml/m2) . Right VentricleThe right ventricular chamber size and systolic fu nction are within normal limits. Right Atrium RA cavity size is normal . Atrial SeptumIV saline contrast injection is probably negative fo r a PFO (patent foramen ovale) at rest a nd post Va lsalva . IV saline contrast with delayed imaging is desir ggestive of intra pulmonic shunting. Th e degree of intrapulmonary shunting appe ars to be sl ight . Aortic Valve Mild AoV cusp thickening. Ao V cusp mobility is normal . Mitral Valve Mild MV leaflet thickening. Mi ld mitral annular calcification. Tr ta mitral regurgitation. Tricuspid SoncyHrbb-ds-nxtfzlqi tricuspid regurgitation. Es timated peak systolic PA pressure is 45- 50 mmHg (m ild pulmonary hypertension) . Pulmonic Valve Normal PV structure and function. AortaAortic root size (SInus of Valsalva diameter) i s no rmal . PericardiumNo significant pericardial effusion is visualized. IVC/SVC/PA/PV/PleuralThe estimated RA pressure by IVC dynamics 5-10mmHg . Chambers/Structures Left Atrium LA Volume: 79.73 mlLA Area: 26.1 cm^2 LA Vol. Index: 46 ml/m^2 Left Ventricle LVIDd: 4.8 cm LV Septum Diastolic: 0.87 cm LV PW Diastolic: 0.91 cm LVOT Diameter: 1.95 cm Right Atrium RA Vol. (Sngl Plane): 5 4.12 ml Right Ventricle TAPSE: 2.36 cm Aorta Ao Root S of Noble.: 2.49 cm Doppler/Quantitative Measurements Mitral Valve MV Peak E-Wave: 1.3 m/s MV Peak A-Wave: 1.04 m/s E/A Ratio: 1. 26 Peak Gradient : 6.8 mmHg Deceleration Time: 207.3 msec MV Nick. Peak: Tissue Doppler E' Septal Velocity: 0.08 m/sE/E': 16.56 E' Lateral Velocity: 0.08 m/s Aortic Valve Peak Velocity: 1.91 m/sMean Velocity: 1.43 m/s Peak Gradient: 14.55 mmHgMean Gradient: 8.92 mmHg AV Area (continuity): 2.24 cm^2 AV VTI: 47.38 cm AV DVI: 0.75 LVOT Peak Velocity: 1.3 m/sPeak Gradient: 6.71 mmHg Mean Velocity: 0.95 m/s Mean Gradient: 4.01 mmHg LVOT Diameter: 1.95 cmLVOT VTI: 35.57 cm LVOT Area: 2.99 cm^2LVOT SV:106.18 ml LVOT CO: 7.64 l/min LVOT CI: 4.37 l/min/m^2 Tricuspid Valve TR Velocity: 3.23 m/s TR Gradient: 41.65 mmHg Procedure Note Interface, External Ris In - 11/27/2019 6:54 PM CDT Transthoracic Echocardiography Report (TTE) Demographics Patient Name JORDYN MANZANO Date o f Study 11/27/2019 VIVIAN Gender Female Visit Number [id number] Race Unknown Room N [facility] OP Number Date of 1950 Referr demetrice barajas Age 69 year(s) Sonogr ekndy Ledbetter, RDCS Sem Manager Nathan Lawrence Interp reting Karuna Tello MD Procedure Type of Study TTE procedure:2DECHO W/CONTRA ST & DOPPLER (Routine) Indications:Pre transplant evaluation fo r liver. Clinical History Cirrhosis, PAOLA, DM, Obesity, HLD HGB 9.0 HCT 26.9 % Contrast Medium: Bubble Study. Height: 60 inches Weight: 77.56 kg (171 lbs) BSA: 1.75 m^2 BMI: 33.4 kg/m^2 HR: 72 bpm BP: 147/68 mmHg Summary Estimated LVEF by qualitative assessmen t is normal (>60%) . IV saline contrast injection is probabl y negative for a PFO (patent foramen ovale) at rest and post Valsalv a . IV saline contrast with delayed imaging is suggestive of intra pulmonic shunting. The degree of intrapulmonary shunting a ppears to be slight . Signature Findings Left Ventricle The left ventric le is chamber size (by PSLAX dimension) is no rmal (female - LVIDd 3.8-5.2cm) . Normal LV wall t hickness. All of the LV se gments contract normally . Global LV systol ic function normal . Estimated LVEF b y qualitative assessment is normal (>60%) . Grade 2 diastoli c dysfunction (moderately increased LA pressure). Left Atrium LA size is moder ately enlarged (42-48 ml/m2) . Right Ventricle The right ventri cular chamber size and systolic function are wit hin normal limits. Right Atrium RA cavity size i s normal . Atrial Septum IV saline contra st injection is probably negative for a PFO (paten t foramen ovale) at rest and post Valsalva . IV saline contra st with delayed imaging is suggestive of in tra pulmonic shunting. The degree of in trapulmonary shunting appears to be slight . Aortic Valve Mild AoV cusp th ickening. AoV cusp mobilit y is normal . Mitral Valve Mild MV leaflet thickening. Mild mitral cinthia lar calcification. Trace mitral reg urgitation. Tricuspid Valve Xwsr-xz-bmuvgmwm tricuspid regurgitation. Estimated peak s ystolic PA pressure is 45-50 mmHg (mild pulmonary hypertension) . Pulmonic Valve Normal PV struct ure and function. Aorta Aortic root size (SInus of Valsalva diameter) is normal . Pericardium No significant p ericardial effusion is visualized. IVC/SVC/PA/PV/Pleural The estimated RA pressure by IVC dynamics 5-10mmHg . Chambers/Structures Left Atrium LA Volume: 79.73 ml LA Area: 26.1 cm^2 LA Vol. Index: 46 ml/m^2 Left Ventricle LVIDd: 4.8 cm LV Septum Diastolic: 0.87 cm LV PW Diastolic: 0.91 cm LVOT Diameter: 1.95 cm Right Atrium RA Vol. (Sngl Plane): 54.12 ml Right Ventricle TAPSE: 2.36 cm Aorta Ao Root S of Noble.: 2.49 cm Doppler/Quantitative Measurements Mitral Valve MV Peak E-Wave: 1.3 m/s M V Peak A-Wave: 1.04 m/s E /A Ratio: 1.26 P eak Gradient: 6.8 mmHg D eceleration Time: 207.3 msec MV Nick. Peak: Tissue Doppler E' Septal Velocity: 0.08 m/s E /E': 16.56 E' Lateral Velocity: 0.08 m/s Aortic Valve Peak Velocity: 1.91 m/s Mean Velocity: 1.43 m/s Peak Gradient: 14.55 mmHg Mean Gradient: 8.92 mmHg AV Area (continuity): 2.24 cm^2 AV VTI: 47.38 cm AV DVI: 0.75 LVOT Peak Velocity: 1.3 m/s Pea k Gradient: 6.71 mmHg Mean Velocity: 0.95 m/s Malia n Gradient: 4.01 mmHg LVOT Diameter: 1.95 cm LVO T VTI: 35.57 cm LVOT Area: 2.99 cm^2 LVO T SV:106.18 ml LVOT CO: 7.64 l/min LVO T CI: 4.37 l/min/m^2 Tricuspid Valve TR Velocity: 3.23 m/s TR Gradient: 41.65 mmHg Performing Organization Address City/State/Zipcode Phone Number [facility] [facility]DO[facility] Carotid doppler bilateral (11/27/2019 8:15 AM CDT) Ejection Fraction [facility] ECHO HEAR TLAB [facility] Specimen Impressions Performed At Right Impression [facility] 1. There is <50% diameter reduction (approximately 28% by 2-D measurement) in the internal carotid artery with a peak velocity of 92/20 cm/sec and heterogeneous plaque. 2. There is non-occluding plaque in the external carotid artery. 3. The common carotid artery is within normal limits. 4. The vertebral artery flow is antegrade and normal. 5. The subclavian artery is within normal limits where visualized. Left Impression 1. There is <50% diameter reduction (approximately 23% by 2-D measurement) in the internal carotid artery with a peak velocity of 67/13 cm/sec and heterogeneous plaque. 2. The external carotid artery is within normal limits. 3. There is non-occluding plaque in the common carotid artery. 4. The vertebral artery flow is antegrade and normal. 5. The subclavian artery is within normal limits where visualized. Conclusions Summary Carotid duplex scanning and color flow imaging were performed bilaterally. The arteries were adequately visualized. The bilateral internal carotid arteries had <50% hemodynamically insignificant stenosis (approximately 28% by 2-D measurement on the right, approximately 23% by 2-D measurement on the left) with heterogeneous plaque. The vertebral artery flow was antegrade and normal bilaterally. The subclavian arteries were patent with normal flow bilaterally where visualize d. Signature Velocities are measured in cm/s ; Diameters are measured in cm Carotid Right Measurements + +----+----+-----+ +---- + + !Location !PSV !EDV !Angle!%Stenosis 2D!%Stenosis Doppler!Tortuosity ! + +----+----+-----+ +---- + + !Prox CCA !121 !16.8!60 !! ! ! + +----+----+-----+ +---- + + !Dist CCA !100 !19.6!60 !! ! ! + +----+----+-----+ +---- + + !Prox ICA !92.5!19.6!60 !27.7% !<50% ! ! + +----+----+-----+ +---- + + !Dist ICA !118 !29.4!60 !! ! ! + +----+----+-----+ +---- + + !Prox ECA !103 !13.3!60 !! ! ! + +----+----+-----+ +---- + + !Vertebral!79.9!17.5!60 !! ! ! + +----+----+-----+ +---- + + !Prox Subclavian!196 !!60 !! ! ! + +----+----+-----+ +---- + + - There is antegrade vertebral flow noted on the right side. - Additional Measurements:ICAPSV/CCAPSV 1.18.ICAEDV/CCAEDV 1.75. Carotid Left Measurements + +----+----+-----+ +---- + + !Location !PSV !EDV !Angle!%Stenosis 2D!%Stenosis Doppler!Tortuosity ! + +----+----+-----+ +---- + + !Prox CCA !127 !19.9!60 !! ! ! + +----+----+-----+ +---- + + !Dist CCA !90.9!19.2!60 !! ! ! + +----+----+-----+ +---- + + !Prox ICA !67.5!12.6!60 !22.7% !<50% ! ! + +----+----+-----+ +---- + + !Dist ICA !102 !27.4!60 !! ! ! + +----+----+-----+ +---- + + !Prox ECA !105 !8.78!60 !! ! ! + +----+----+-----+ +---- + + !Vertebral!67.5!12.1!60 !! ! ! + +----+----+-----+ +---- + + !Prox Subclavian!198 !!60 !! ! ! + +----+----+-----+ +---- + + - There is antegrade vertebral flow noted on the left side. - Additional Measurements:ICAPSV/CCAPSV 1.12.ICAEDV/CCAEDV 1.38. Narrative Performed At [facility] - Carotid Duplex Study [facility] ECHO HEARTLAB [facility] Demographics Patient Name Valeri MANZANO of Study11/27/2019 EDMUNDO GUZMÁN [id number] Age 69 Visit Number [id number] Gender Female Accession Number [id number] [facility]1950 [facility] Interpreting Leila Hernandez MD RVS Physician Procedure Type of Study: Cerebral: Carotid, CAROTID DOPPLER, MICHAEL ATERAL. Indications for Study:Pre transplant evaluation for liver. Patient Status:Routine. Study Location:Vascular Lab. Technical Quality:Adequate visualization . Risk Factors History of Disease + + + + !Diagnosis !Date!Comments ! + + + + !History/Risk Factors: !11/27/2019!Liver cirrhosis, DM, Portal HTN ! + + + + Procedure Note Interface, External Ris In - 11/27/2019 11:08 AM CDT [facility] - Carotid Duplex Study Demographics Patient Name JORDYN MANZANO of Study 11/27/2019 EDMUNDOUIDAVID Age 69 Visit Number [id number] Gen irma Female Accession Number [id number] Thomas e of 1950 Referring Adriano Gonzalez m Number [id number] OPT Physician [employer] Printer Maxwell Garcia Int erpreting Leila Hernandez MD S Clara gunter Procedure Type of Study: Cerebral: Carotid, CAROTID DOPPLER, MICHAEL ATERAL. Indications for Study:Pre transplant natividad luation for liver. Patient Status:Routine. Study Location:Vascular Lab. Technical Quality:Adequate visualization . Risk Factors History of Disease + + +--- + !Diagnosis !Date !Com ments ! + + +--- + !History/Risk Factors: !11/27/2019!Deborah er cirrhosis, DM, Portal HTN ! + + +--- + Impressions Right Impression 1. There is <50% diameter reduction (tasha roximately 28% by 2-D measurement) in the internal carotid artery with a pe ak velocity of 92/20 cm/sec and heterogeneous plaque. 2. There is non-occluding plaque in the external carotid artery. 3. The common carotid artery is within n ormal limits. 4. The vertebral artery flow is antegrad e and normal. 5. The subclavian artery is within jes l limits where visualized. Left Impression 1. There is <50% diameter reduction (tasha roximately 23% by 2-D measurement) in the internal carotid artery with a pe ak velocity of 67/13 cm/sec and heterogeneous plaque. 2. The external carotid artery is within normal limits. 3. There is non-occluding plaque in the common carotid artery. 4. The vertebral artery flow is antegrad e and normal. 5. The subclavian artery is within jes l limits where visualized. Conclusions Summary Carotid duplex scanning and color flow imaging were performed bilaterally. The arteries were adequately visualized . The bilateral internal carotid arteries had <50% hemodynamically insig nificant stenosis (approximately 28% by 2-D measurement on the right, ap proximately 23% by 2-D measurement on the left) with heterogeneous plaque. The vertebral artery flow was antegrade and normal bilaterally. The s ubclavian arteries were patent with normal flow bilaterally where visualize d. Signature Velocities are measured in cm/s ; Diamet ers are measured in cm Carotid Right Measurements + +----+----+-----+------- -----+ + + !Location !PSV !EDV !Angle!%Stenos is 2D!%Stenosis Doppler!Tortuosity ! + +----+----+-----+------- -----+ + + !Prox CCA !121 !16.8!60 ! ! ! ! + +----+----+-----+------- -----+ + + !Dist CCA !100 !19.6!60 ! ! ! ! + +----+----+-----+------- -----+ + + !Prox ICA !92.5!19.6!60 !27.7% !<50% ! ! + +----+----+-----+------- -----+ + + !Dist ICA !118 !29.4!60 ! ! ! ! + +----+----+-----+------- -----+ + + !Prox ECA !103 !13.3!60 ! ! ! ! + +----+----+-----+------- -----+ + + !Vertebral !79.9!17.5!60 ! ! ! ! + +----+----+-----+------- -----+ + + !Prox Subclavian!196 ! !60 ! ! ! ! + +----+----+-----+------- -----+ + + - There is antegrade vertebral flow no nelly on the right side. - Additional Measurements:ICAPSV/CCAPS V 1.18.ICAEDV/CCAEDV 1.75. Carotid Left Measurements + +----+----+-----+------- -----+ + + !Location !PSV !EDV !Angle!%Stenos is 2D!%Stenosis Doppler!Tortuosity ! + +----+----+-----+------- -----+ + + !Prox CCA !127 !19.9!60 ! ! ! ! + +----+----+-----+------- -----+ + + !Dist CCA !90.9!19.2!60 ! ! ! ! + +----+----+-----+------- -----+ + + !Prox ICA !67.5!12.6!60 !22.7% !<50% ! ! + +----+----+-----+------- -----+ + + !Dist ICA !102 !27.4!60 ! ! ! ! + +----+----+-----+------- -----+ + + !Prox ECA !105 !8.78!60 ! ! ! ! + +----+----+-----+------- -----+ + + !Vertebral !67.5!12.1!60 ! ! ! ! + +----+----+-----+------- -----+ + + !Prox Subclavian!198 ! !60 ! ! ! ! + +----+----+-----+------- -----+ + + - There is antegrade vertebral flow no nelly on the left side. - Additional Measurements:ICAPSV/CCAPS V 1.12.ICAEDV/CCAEDV 1.38. Performing Organization Address [facility]/Zipcode Phone Number [facility] ECHO HEARTLAB MKCKESSON CPACS Urinalysis w/Microscopic (11/27/2019 7:52 AM CDT) Color, UA Yellow [facility] Clarity, UA Hazy [facility] Specific [place], UA 1.017 1.001 - 1.035 [facility] pH, UA 6.5 5.0 - 8.0 [facility] Protein, UA Negative Negative [facility] Glucose, UA Negative Negative [facility] Ketones, UA Negative Negative [facility] Bilirubin, UA Negative Negative [facility] Blood, UA Trace (A) Negative [facility] Nitrite, UA Negative Negative [facility] Leukocytes, UA Negative Negative [facility] Urobilinogen, UA 2.0 (H) 0.2 - 1.0 mg/dL [facility] RBC, UA 1 /HPF [facility] WBC, UA 1 /HPF [facility] Bacteria, UA Occasional [facility] Squam Epithel, UA 7 /HPF [facility] Specimen Source [facility] Specimen Urine Narrative Performed At Electronics Tech ID - [auto] [facility] Electronics Tech ID - tech Performing Organization Address [place] [facility] Phone Number [facility] [address] [address] [place] Blood gas, arterial (11/27/2019 7:32 AM CDT) pH, Arterial 7.43 7.35 - 7.45 [facility] pCO2, Arterial 33 (L) 35 - 45 mmHg [facility] pO2, Arterial 101 (H) 80 - 90 mmHg [facility] O2 Sat, Arterial 97.8 (H) 96.0 - 97.0 % [facility] HCO3, Arterial 21 21 - 29 mmol/L [facility] Base Excess, Arterial -2.5 (L) -2.0 - 3.0 mmol/L [facility] Patient Temperature 37.0 C [facility] FIO2 21.0 % [facility] Specimen Blood, Arterial Performing Organization Address City/State/Zipcode Phone Number [address] [address] [place] Blood typing, automated (11/27/2019 7:19 AM CDT) ABO/RH AUTOMATED (BEAKER) O POSITIVE [facility] Specimen Blood Performing Organization Address [facility]/Zipcode Phone Number [address] [address] [id number] Quant and Phenotype (11/27/2019 6:59 AM CDT) Specimen Blood Narrative Performed At This result has an attachment that is no t available. Performing Organization Address City/[facility]/Zipcode Phone Number [facility], [place] [address] [facility]ATED [address] [facility] T Spot TB (11/27/2019 6:59 AM CDT) T-Spot TB Negative [facility] Neg Ctrl Spot Count 0 [facility] Panel A Spot 0 [facility] Panel B Spot 0 [facility] Pos Ctrl Spot Ct 0 [facility] Scan Result [facility] Specimen Blood Narrative Performed At This result has an attachment that is no t available. Performing Organization Address City/State/Zipcode Phone Number [facility] [address] [place] [address] LAB[address]ATOR[address] Iron, TIBC, % sat. (without ferritin) (11/27/2019 6:59 AM CDT) Iron 132.0 40.0 - 160.0 ug/dL [facility] TIBC 156 (L) 250 - 450 ug/dL [facility] Iron % Saturation 85 (H) 20 - 55 % [facility] Specimen Blood Narrative Performed At Electronics Tech ID - EDMOND C [facility] Performing Organization Address City/[facility] Phone Number [address] [address] CENTER HIV-1 Antigen with HIV-1/2 Antibody (11/27/2019 6:59 AM CDT) HIV-1 Antigen with HIV 1&2 Nonreactive Nonreactive [facility] Specimen Blood Narrative Performed At Electronics Tech ID - EDMOND C [facility] Performing Organization Address City/[facility] Phone Number [address] [address] [place] Calcium, Ionized (11/27/2019 6:59 AM CDT) Calcium, Ion 1.09 (L) 1.12 - 1.27 mmol/L [facility] pH, Blood 7.36 [facility] Specimen Blood Performing Organization Address City/[facility]/Zipcode Phone Number [address] [address] CENTER Hepatitis C antibody (11/27/2019 6:59 AM CDT) Hepatitis C Ab Nonreactive Nonreactive [facility] Specimen Blood Narrative Performed At Electronics Tech ID - EDMOND Mcghee [facility] Performing Organization Address City/[facility]/Zipcode Phone Number [address] [address] [place] Cytomegalovirus antibody, IgM (11/27/2019 6:59 AM CDT) CMV IGM Negative Negative, Equivocal [facility] Specimen Blood Narrative Performed At CMV IgM Result Interpretation: [facility] </= 0.8 Al Negative 0.9-1.0 Al Equivocal >/= 1.1 Al Positive Performing Organization Address City/[facility] Phone Number [address] [address] [place] Cryptococcal antigen (11/27/2019 6:59 AM CDT) Cryptococcal Antigen, Serum Negative Negative, Interferen ce [facility] Specimen Blood Performing Organization Address City/[facility] Phone Number [address] [address] [place] TARAN Titer & Pattern (11/27/2019 6:59 AM CDT) TARAN Titer 1:160 [facility] TARAN Pattern Homogeneous [facility] Specimen Blood Performing Organization Address City/[facility] Phone Number [address] [address] [place] EBV-VCA antibody, IgM (11/27/2019 6:59 AM CDT) DAMON CASTILLO VIRAL CAPSID Negative Negative, Equivocal CH I [facility] ANTIGEN [facility] Specimen Blood Narrative Performed At Damon Castillo Viral Capsid Antigen IgM Result [facility] Interpretation: </= 0.8 Al Negative 0.9-1.0 Al Equivocal >/= 1.1 Al Positive Performing Organization Address [facility] Phone Number [address] [address] [place] EBV-VCA antibody, IgG (11/27/2019 6:59 AM CDT) DAMON CASTILLO VIRAL CAPSID Positive (A) Negative, Equivocal [facility] I [facility] ANTIGEN [facility] Specimen Blood Narrative Performed At Damon Castillo Viral Capsid Antigen IgG Result [facility] Interpretation: </= 0.8 Al Negative 0.9-1.0 Al Equivocal >/= 1.1 Al Positive Performing Organization Address [facility] Phone Number [address] [address] [place] Rubella antibody, IgG (11/27/2019 6:59 AM CDT) Rubella IgG Quant >250.0 (H) <8.0 IU/mL [facility] Specimen Blood Narrative Performed At Rubella IgG Result Interpretation: [facility] </= 7.0 IU/mL Negative - Presumed non-immune 8.0 - 9.9 IU/mL Equivocal >= 10.0 IU/mL Positive - Presumed immune Performing Organization Address [facility] Phone Number [address] [address] [place] RPR (11/27/2019 6:59 AM CDT) RPR Nonreactive Nonreactive [facility] Specimen Blood Performing Organization Address [facility] Phone Number [address] [address] [place] Cytomegalovirus antibody, IgG (11/27/2019 6:59 AM CDT) CYTOMEGALOVIRUS, IGG Positive (A) Negative, Equivocal [facility] Specimen Blood Narrative Performed At CMV IgG Result Interpretation: [facility] </= 0.8 Al Negative 0.9-1.0 Al Equivocal >/=1.1 AlPositive Performing Organization Address [facility] Phone Number [address] [address] [place] Varicella zoster antibody, IgG (11/27/2019 6:59 AM CDT) Varicella IgG 4.6 [facility] Specimen Blood Narrative Performed At VARICELLA ZOSTER RESULT INTERPRETATIONS: [facility] <=0.8 AlNonreactive:Presumed non-immune to VZV 0.9-1.0 AlEquiv ocal >=1.1 AlReactive:Presumed immune to VZV Performing Organization Address [facility] Phone Number [address] [address] [place] Anti-Nuclear Antibody (TARAN) (11/27/2019 6:59 AM CDT) TARAN Positive (A) Negative [facility] Specimen Blood Narrative Performed At Test performed by IFA method. [facility] Performing Organization Address [facility] Phone Number [address] [phone] [place] Uric acid (11/27/2019 6:59 AM CDT) Uric Acid 6.7 2.6 - 7.2 mg/dL [facility] Specimen Blood Narrative Performed At Electronics Tech ID - EDMOND C [facility] Specimen slightly icteric Performing Organization Address [facility] Phone Number [address] [address] CENTER TSH (11/27/2019 6:59 AM CDT)Only the most recent of2 resultswithin the time period is included. TSH 2.089 0.350 - 4.940 uIU/mL [facility] Specimen Blood Narrative Performed At Electronics Tech ID - EDMOND C [facility] Performing Organization Address [facility] Phone Number [address] [address] CENTER T4 (11/27/2019 6:59 AM CDT) T4, Total 5.8 4.9 - 11.7 ug/dL [facility] Specimen Blood Narrative Performed At Electronics Tech ID - EDMOND Mcghee [facility] Performing Organization Address City/[facility] Phone Number [address] [address] CENTER Phosphorus (11/27/2019 6:59 AM CDT) Phosphorus 2.9 2.3 - 4.7 mg/dL [facility] Specimen Blood Narrative Performed At Electronics Tech ID - EDMOND Mcghee [facility] Performing Organization Address [facility] Phone Number [address] [address] CENTER Magnesium (11/27/2019 6:59 AM CDT) Magnesium 1.9 1.6 - 2.6 mg/dL [facility] Specimen Blood Narrative Performed At Electronics Tech ID - EDMOND Mcghee [facility] Performing Organization Address [facility] Phone Number [address] [address] CENTER Hemoglobin A1c (11/27/2019 6:59 AM CDT) Hemoglobin A1C 6.0 4.3 - 6.1 % [facility] Specimen Blood Performing Organization Address City/[facility] Phone Number [address] [address] CENTER Gamma Glutamyl Transferase (GGT) (11/27/2019 6:59 AM CDT) GGT 204 (H) 9 - 64 U/L [facility] Specimen Blood Narrative Performed At Electronics Tech ID - EDMOND Mcghee [facility] Specimen slightly icteric Performing Organization Address City/[facility] Phone Number [facility] [address] [phone] CENTER Bilirubin, direct (11/27/2019 6:59 AM CDT) Bilirubin, Direct 1.2 (H) 0.1 - 0.5 mg/dL [facility] Specimen Blood Narrative Performed At Electronics Tech ID - EDMOND Mcghee [facility] Performing Organization Address [facility] Phone Number [address] [address] [place] Ethanol (11/27/2019 6:59 AM CDT) Ethanol Lvl <10 <=10 mg/dL [facility] Specimen Blood Narrative Performed At Electronics Tech ID - EDMOND Mcghee [facility] Performing Organization Address [facility] Phone Number [address] [address] [place] Lipid panel (11/27/2019 6:59 AM CDT) Triglycerides 174 mg/dL [facility] Cholesterol 237 mg/dL [facility] HDL 39 mg/dL [facility] LDL Calculated 163 mg/dL [facility] Specimen Blood Narrative Performed At Triglyceride Reference Range: [facility] Low Risk <150 [id number] High Risk 200-499 Very High Risk>=500 Cholesterol Reference Range: Low Risk <200 [id number] High Risk>240 HDL Cholesterol Reference Range: Low Risk >=60 High Risk <40 LDL Cholesterol Reference Range: Optimal<100 Near [id number] [id number] [id number] Very High >=190 Electronics Tech ID - EDMOND Mcghee Specimen slightly icteric Performing Organization Address [facility] Phone Number [address] [address] [place] Comprehensive metabolic panel (11/27/2019 6:59 AM CDT) Protein, Total 5.6 (L) 6.0 - 8.3 gm/dL [facility] Albumin 2.7 (L) 3.5 - 5.0 g/dL [facility] Alkaline Phosphatase 319 (H) 40 - 150 U/L [facility] Total Bilirubin 2.6 (H) 0.2 - 1.2 mg/dL [facility] Sodium 140 136 - 145 meq/L [facility] Potassium 5.0 3.5 - 5.1 meq/L [facility] Chloride 113 (H) 98 - 107 meq/L [facility] CO2 24 22 - 29 meq/L [facility] BUN 23 (H) 7 - 21 mg/dL [facility] Creatinine 1.73 (H) 0.57 - 1.25 mg/dL [facility] Glucose 99 70 - 105 mg/dL [facility] Calcium 8.6 8.4 - 10.2 mg/dL [facility] AST 60 (H) 5 - 34 U/L [facility] ALT 46 6 - 55 U/L [facility] EGFR 29Comment: ESTIMATED GFR mL/min/1.73 sq m [facility] IS NOT [facility] CREATININE CLEARANCE IN PREDICTING GLOMERULAR FILTRATION RATE. ESTIMATED GFR IS NOT APPLICABLE FOR DIALYSIS PATIENTS. Specimen Blood Narrative Performed At Electronics Tech ID - Jul [facility] Specimen slightly icteric Performing Organization Address City/State/Zipcode Phone Number [facility] [address] [place] [address] CENTER Hepatitis A antibody, IgG ([facility] Lab ONLY) (11/27/2019 6:58 AM CDT) Hep A IgG Reactive (A) Nonreactive [facility] Specimen Blood Narrative Performed At Electronics Tech HESHAM Mcghee [facility] Performing Organization Address City/State/Zipcode Phone Number [facility] [address] [place] [address] CENTER Mitochondria M2 Antibody (IgG) (11/27/2019 6:58 AM CDT) Mitochondria M2 Ab <20.0 See Note: U [facility] Comment: Reference Range: NEGATIVE:< OR = 20.0 EQUIVOCAL: 20.1-24.9 POSITIVE:> OR = 25.0 Specimen Blood Narrative Performed At Performing Lab [facility] [place] [address] [place] [address] Brett Sarmiento MD, PhD, MAGDALENA Performing Organization Address [facility] Phone Number [employer] [place], [place] [address] INCORPORATED [address] [employer] Actin (Smooth Muscle) Antibody, IgG (11/27/2019 6:58 AM CDT) Anti-Smooth Muscle Ab <20 See Note: U [facility] Comment: INCORPORATED Reference Range: <20 NEGATIVE > OR = 20 POSITIVE Antibodies recognizing actin are the main compon ent of smooth muscle antibodies associated with autoimmune liver disease. Actin antibodies are found in approximately 75% of patients with autoimmune hepatitis (AIH) type 1, approximately 65% of patients with autoimmune cholangitis, approximately 30% of patients with primary bilia ry cirrhosis, and approximately 2% of healthy peopl e. High values are closely correlated with AIH type 1. Specimen Blood Narrative Performed At Performing Lab [facility] [employer] [address] [address] [place] [address] Brett Sarmiento MD, PhD, MAGDALENA Performing Organization Address [facility]/Rustde Phone Number [employer] [place], [place] [address] INCORPORATED [address] [employer] Hepatitis A antibody, IgM (11/27/2019 6:58 AM CDT) Hep A IgM Indeterminate (A) Nonreactive [facility] Specimen Blood Narrative Performed At Electronics Tech ID - EDMOND Mcghee [facility] Electronics Tech ID - FRANKIE Sawyer Electronics Tech ID - FRANKIE Sawyer Electronics Tech ID - FRANKIE Sawyer Performing Organization Address City/[facility] Phone Number [facility] [address] [place] [address] CENTER Carbohydrate antigen 19-9 (CA 19-9) (11/27/2019 6:58 AM CDT) CA 19-9 87 (H) <34 U/mL [facility] Comment: This test was performed using the Siemens Chemil uminescent method. Values obtained from different assay methods can not be used interchangeably. CA19-9 levels, regardless of value, should not b e interpreted as absolute evidence of the presence or absence of disease. Specimen Blood Narrative Performed At Performing Lab [facility] [employer] [facility] [address] [address] [place] [address] I Torsten STOVALL, PhD, MAGDALENA Performing Organization Address City/[facility] Phone Number [facility] [place], [place] [address] INCORPORATED [address] [facility] Rubeola antibody IgG (11/27/2019 6:58 AM CDT) Rubeola Ab, Igg >300.00 AU/mL [facility] Comment: INCORPORATED REFERENCE RANGE:<13.50AU/mL AU/mL I nterpretation ====== <13.50 Negative 13.50-16.49 Equivocal >16.49 Positive A positive result indicates that the patient has antibody to measles virus. It does not differentiate between an active or past infectio n. The clinical diagnosis must be interpreted in conjunction with clinical signs and symptoms of the patient. For additional information, please refer to http://education.AccurIC/faq/YQD032 (This link is being provided for informational/ educational purposes only.) Specimen Blood Narrative Performed At Performing Lab [employer] *QDID [employer] [employer] [address] [place] [address] Sujey Dewitt MD Performing Organization Address City/[facility]/Zipcode Phone Number [facility] [place] [address] INC[facility]ATED [address] [facility] Zinc (11/27/2019 6:58 AM CDT) Zinc 30 (L) 60 - 130 mcg/dL [facility] Comment: INCORPORATED This test was developed and its analytical perfo rmance characteristics have been determined by [employer]. It has not been cleared or approved by the FDA. This assay has been validated pursuant to [facility] CLIA regulations and is used for clinical purposes. Specimen Blood Narrative Performed At Performing Lab [facility] *NOBLE [employer] [facility], [address] [place] [id number] Gentry Fink MD, PhD Performing Organization Address [facility] Phone Number [facility] [place] [address] [employer]ATED [address] [facility] Hepatitis B core antibody, IgM (11/27/2019 6:58 AM CDT) Hep B C IgM Nonreactive Nonreactive [facility] Specimen Blood Narrative Performed At Electronics Tech ID - EDMOND Mcghee [facility] Performing Organization Address [facility] Phone Number [address] [address] CENTER Vitamin D, 25-Hydroxy (11/27/2019 6:58 AM CDT) Vitamin D 25-Hydroxy 21.1 6.6 - 49.9 ng/mL [facility] Specimen Blood Narrative Performed At Effective 04/12/2017: Reference Range Ch shaka [facility] New: 6.6-49.9 ng/mL Previous: 13.0-47.8 ng/mL Recommended Vitamin D Target Range: 30.0-40.0 ng/mL Electronics Tech ID Elena Mcghee Performing Organization Address [facility]/Zipcode Phone Number [address] [address] CENTER aPTT (11/27/2019 6:58 AM CDT) PTT 38.5 (H) 22.5 - 36.0 seconds [facility] Specimen Blood Performing Organization Address City/[facility]/Zipcode Phone Number [address] [address] [place] Fibrinogen (11/27/2019 6:58 AM CDT) Fibrinogen 163 (L) 225 - 434 mg/dl [facility] Specimen Blood Performing Organization Address [facility] Phone Number [address] [address] [place] Mumps antibody, IgG (11/27/2019 6:58 AM CDT) Mumps Ab Igg >300.00 AU/mL [facility] Comment: REFERENCE RANGE: <9.00 AU/mLInterpretation <9.00Negative 9.00-10.99 Equivocal >10.99 Positive A positive result indicates that the patient has antibody to mumps virus. It does not differentia te between an active or past infection.The clin ical diagnosis must be interpreted in conjunction wit h clinical signs and symptoms of the patient. Specimen Blood Narrative Performed At Performing Lab [facility] *QDID [employer] Infectious Di [facility] [address] [place] [phone] H Gentry Dewitt MD Performing Organization Address [facility] Phone Number [facility] [place] [address] [place] [address] T3 (11/27/2019 6:58 AM CDT) T3, Total 95 48 - 159 ng/dL [facility] Specimen Blood Narrative Performed At T3,Total=ng/dl [facility] Reference Range 76-181 ng/dl Test performed by [employer] Performing Organization Address [facility] Phone Number [facility] [address] [place] [address], [place] Transferrin (11/27/2019 6:58 AM CDT) Transferrin 124 (L) 174 - 382 mg/dL [facility] Specimen Blood Narrative Performed At Electronics Tech ID - EDMOND Mcghee [facility] Specimen slightly icteric Performing Organization Address City/State/Zipcode Phone Number [address] [address] CENTER Ferritin (11/27/2019 6:58 AM CDT) Ferritin 383.27 (H) 5.00 - 275.00 ng/mL [facility] Specimen Blood Narrative Performed At Electronics Tech ID - EDMOND Mcghee [facility] Performing Organization Address City/[facility]/Zipcode Phone Number [address] [address] [place] Carcinoembryonic Antigen (CEA) (11/27/2019 6:58 AM CDT) CEA, SERUM 9.1 (H) 0.0 - 5.0 ng/mL [facility] Specimen Blood Narrative Performed At Electronics Tech ID - EDMOND Mcghee [facility] CENTER Performing Organization Address City/[facility] Phone Number [address] [address] [place] XR mandible 4 views min (11/20/2019 1:00 PM CDT) Specimen Narrative Performed At FINAL REPORT GE RIS TECHNIQUE: Five views of the mandible da nelly 11/20/2019 HISTORY: Pretransplant evaluation COMPARISON: None IMPRESSION: No displaced fracture. Temporomandibular joints are grossly unremarkable. No lytic or sclerotic lesi on visualized. No radiodense foreign body or subcutaneous emphysema. Signed: Christopher Ocampo MD Report Verified Date/Time:11/20/2019 14:15:05 Reading Location: [address] Radiolog y Reading Room Procedure Note Interface, External Ris In - 11/20/2019 2:17 PM CDT FINAL REPORT TECHNIQUE: Five views of the mandible da nelly 11/20/2019 HISTORY: Pretransplant evaluation COMPARISON: None IMPRESSION: No displaced fracture. Temporomandibular joints are grossly unremarkable. No lytic or sclerotic lesi on visualized. No radiodense foreign body or subcutaneous emphysema. Signed: Christopher Ocampo MD Report Verified Date/Time: 11/20/2019 1 4:15:05 Reading Location: [facility] [address] Radiolog y Reading Room Performing Organization Address [facility] [place] Phone Number GE [facility] XR chest 2 views (11/20/2019 12:50 PM CDT) Specimen Narrative Performed At FINAL REPORT [facility] TECHNIQUE: Frontal and lateral chest rad iographs dated 11/20/2019. CLINICAL HISTORY: Pre transplant eval COMPARISON STUDY: None FINDINGS: Lungs are clear. No pleural effusion or pneumothorax. Cardiomediastinal silhouette is normal i n size. No pulmonary edema. Degenerative changes are seen in the spi ne. IMPRESSION: Clear lungs. Signed: Christopher Ocampo MD Report Verified Date/Time:11/20/2019 14:12:07 Reading Location: [address] Reading Room Procedure Note Interface, External Ris In - 11/20/2019 2:14 PM CDT FINAL REPORT TECHNIQUE: Frontal and lateral chest rad iographs dated 11/20/2019. CLINICAL HISTORY: Pre transplant eval COMPARISON STUDY: None FINDINGS: Lungs are clear. No pleural effusion or pneumothorax. Cardiomediastinal silhouette is normal i n size. No pulmonary edema. Degenerative changes are seen in the spi ne. IMPRESSION: Clear lungs. Signed: Christopher Ocampo MD Report Verified Date/Time: 11/20/2019 1 4:12:07 Reading Location: [address] Reading Room Performing Organization Address [facility] Phone Number GE RIS XR dxa bone density study (11/20/2019 12:44 PM CDT) Specimen Narrative Performed At FINAL REPORT GE [facility] Bone density study, 11/20/2019 Clinical History:Screening Bone mineral density measurement Lumbar spine1.130 gm/cm2 Femoral neck0.880 gm/cm2 Standard deviation from young adult popu lation (T-score) Lumbar spine-0.4 Femoral neck-1.1 Standard deviation for age adjusted popu lation (Z-score) Lumbar spine0.8 Femoral neck0.3 According to medical literature, this co rresponds to no increased risk of an osteoporotic fracture of the lumbar spine as compared to the young adult population. The femoral neck bone mineral density corresponds to 1-2 times increased risk of an osteoporotic fracture as compared to the young adult populatio n. Impression:Osteopenia of the femoral neck.Complete computer analysis will be sent shortly. Diagnostic criteria for osteoporosis BMD:Bone mineral density Normal: BMD measurement less than one st andard deviation from young adult population Osteopenia: BMD measurement between 1 an d 2.5 standard deviations Osteoporosis: BMD measurement greater th an 2.5 standard deviations Severe osteoporosis: Osteoporosis and on e or more fragility fractures Signed: Alonso Ibrahim MD Report Verified Date/Time:11/20/2019 13:50:28 Reading Location: [address] Re ading Room Procedure Note Interface, External Ris In - 11/20/2019 1:52 PM CDT FINAL REPORT Bone density study, 11/20/2019 Clinical History: Screening Bone mineral density measurement Lumbar spine1.130 gm/cm2 Femoral neck0.880 gm/cm2 Standard deviation from young adult popu lation (T-score) Lumbar spine-0.4 Femoral neck-1.1 Standard deviation for age adjusted popu lation (Z-score) Lumbar spine0.8 Femoral neck0.3 According to medical literature, this co rresponds to no increased risk of an osteoporotic fracture of the lumbar spine as compared to the young adult population. The femoral neck bone mineral density corresponds to 1-2 times increased risk of an osteoporotic fracture as compared to the young adult populatio n. Impression: Osteopenia of the femoral n anai. Complete computer analysis will be sent shortly. Diagnostic criteria for osteoporosis BMD: Bone mineral density Normal: BMD measurement less than one st andard deviation from young adult population Osteopenia: BMD measurement between 1 an d 2.5 standard deviations Osteoporosis: BMD measurement greater th an 2.5 standard deviations Severe osteoporosis: Osteoporosis and on e or more fragility fractures Signed: Alonso Ibrahim MD Report Verified Date/Time: 11/20/2019 1 3:50:28 Reading Location: [address] Mammo Re [address]ing Room Performing Organization Address City/State/Zipcode Phone Number [facility] MR abdomen with/without IV contrast (11/08/2019 10:45 AM CDT)Only the most recent of2 resultswithin the time period is included. Specimen Narrative Performed At FINAL REPORT [facility] TECHNIQUE: MRI of the abdomen WITHOUT an d WITH intravenous contrast. INDICATION: 69-year-old woman with cirrh osis. COMPARISON: Abdomen MRI 05/10/2019. FINDINGS: LOWER THORAX: Unremarkable. LIVER: Cirrhotic morphology of the liver . No suspicious hepatic lesions. No significant change in size o f the 1.2 cm linear arterially enhancing focus in the left h epatic lobe without corresponding washout or pseudocapsule ( axial postcontrast arterial series image 49). Apparent 1.1 x 0.9 cm arterially enhancing focus in the left hepatic lobe was not clearly vi sualized on prior exam and does not have associated washout or pseu docapsule (axial postcontrast arterial series image 53). Unchanged sub centimeter cyst in the left hepatic lobe. BILIARY: Prior cholecystectomy. No signi ficant change in prominence of the common bile duct, which measures up to 1.4 cm. No intrahepatic biliary ductal prominence. SPLEEN: No splenomegaly. PANCREAS: No significant change in unilo cular cystic lesions in the pancreas which measure 0.6 cm at the bod y/neck junction and 1.1 x 1 cm in the pancreatic tail. No ductal dil atation. ADRENALS: No adrenal nodules. KIDNEYS/URETERS: No hydronephrosis or so lid mass lesions. Unchanged subcentimeter cysts in both kidneys. PERITONEUM/RETROPERITONEUM: No free flui d. LYMPH NODES: No lymphadenopathy. VESSELS: Unchanged diminutive portal vei ns. Main portal vein measures 0.5 cm in diameter. Superior mesenteric and splenic veins are widely patent. Esophageal and perisplenic varic es. Abdominal aorta is normal in caliber. GI TRACT: No distention or wall thickeni ng. BONES AND SOFT TISSUES: Unremarkable. IMPRESSION: Cirrhosis with portal hypertension. No suspicious liver lesion. Indeterminat e arterially enhancing foci in the left hepatic lobe. No significant change in prominence of t he common duct, likely postcholecystectomy reservoir effect. No significant change in the pancreatic cystic lesions which measure up to 1.1 cm. RECOMMENDATION: Follow-up abdomen MRI with and without i ntravenous contrast (liver protocol) may be obtained in 6 months fo r reassessment. Signed: Melissa Guzmán MD Report Verified Date/Time:11/08/2019 15:13:09 Reading Location: [facility] C013Y CT Body R eading Room Procedure Note Interface, External Ris In - 11/08/2019 3:15 PM CDT FINAL REPORT TECHNIQUE: MRI of the abdomen WITHOUT an d WITH intravenous contrast. INDICATION: 69-year-old woman with cirrh osis. COMPARISON: Abdomen MRI 05/10/2019. FINDINGS: LOWER THORAX: Unremarkable. LIVER: Cirrhotic morphology of the liver . No suspicious hepatic lesions. No significant change in size o f the 1.2 cm linear arterially enhancing focus in the left h epatic lobe without corresponding washout or pseudocapsule ( axial postcontrast arterial series image 49). Apparent 1.1 x 0.9 cm arterially enhancing focus in the left hepatic lobe was not clearly vi sualized on prior exam and does not have associated washout or pseu docapsule (axial postcontrast arterial series image 53). Unchanged sub centimeter cyst in the left hepatic lobe. BILIARY: Prior cholecystectomy. No signi ficant change in prominence of the common bile duct, which measures up to 1.4 cm. No intrahepatic biliary ductal prominence. SPLEEN: No splenomegaly. PANCREAS: No significant change in unilo cular cystic lesions in the pancreas which measure 0.6 cm at the bod y/neck junction and 1.1 x 1 cm in the pancreatic tail. No ductal dil atation. ADRENALS: No adrenal nodules. KIDNEYS/URETERS: No hydronephrosis or so lid mass lesions. Unchanged subcentimeter cysts in both kidneys. PERITONEUM/RETROPERITONEUM: No free flui d. LYMPH NODES: No lymphadenopathy. VESSELS: Unchanged diminutive portal vei ns. Main portal vein measures 0.5 cm in diameter. Superior mesenteric and splenic veins are widely patent. Esophageal and perisplenic varic es. Abdominal aorta is normal in caliber. GI TRACT: No distention or wall thickeni ng. BONES AND SOFT TISSUES: Unremarkable. IMPRESSION: Cirrhosis with portal hypertension. No suspicious liver lesion. Indeterminat e arterially enhancing foci in the left hepatic lobe. No significant change in prominence of t he common duct, likely postcholecystectomy reservoir effect. No significant change in the pancreatic cystic lesions which measure up to 1.1 cm. RECOMMENDATION: Follow-up abdomen MRI with and without i ntravenous contrast (liver protocol) may be obtained in 6 months fo r reassessment. Signed: Melissa Guzmán MD Report Verified Date/Time: 11/08/2019 1 5:13:09 Reading Location: [address] Body R eading Room Performing Organization Address City/State/Zipcode Phone Number GE [facility] POC-Creatinine (11/08/2019 10:13 AM CDT)Only the most recent of2 resultswithin the time period is included. POC-Creatinine 1.8 (H)Comment: : TESTED 0.6 - 1.3 mg/dL [facility] [id number] [facility] [id number]: Electronics Tech/Rock Crusher Operator ID = [id number] for Indira Villaian POC-EGFR 28 mL/min/1.73M2 [facility] Specimen Blood Performing Organization Address City/State/Zipcode Phone Number [address] [address] CENTER Alpha fetoprotein (AFP), tumor marker (08/13/2019 3:47 PM OPERATIONS PROCESSOR)Only the most recent of3 resultswithin the time period is included. Alpha-Fetoprotein 3.5 <10.0 ng/mL [facility] Specimen Blood Narrative Performed At Electronics Tech ID - BS [facility] Performing Organization Address City/[facility]/Zipcode Phone Number [facility] [address] [place] [address] [place] Hepatic function panel (08/13/2019 3:47 PM OPERATIONS PROCESSOR)Only the most recent of3 results within the time period is included. Protein, Total 5.9 (L) 6.0 - 8.3 gm/dL [facility] Albumin 2.7 (L) 3.5 - 5.0 g/dL [facility] Total Bilirubin 2.9 (H) 0.2 - 1.2 mg/dL [facility] Bilirubin, Direct 1.4 (H) 0.1 - 0.5 mg/dL [facility] Alkaline Phosphatase 375 (H) 40 - 150 U/L [facility] AST 74 (H) 5 - 34 U/L [facility] ALT 43 6 - 55 U/L [facility] Specimen Blood Narrative Performed At Electronics Tech ID - BS [facility] Specimen slightly icteric Performing Organization Address City/[facility]/Zipcode Phone Number [facility] [address] [place] [address] [place] CBC with platelet count + automated diff (12/27/2018 4:21 PM CDT) WBC 4.2 3.8 - 10.8 Thousand/uL [facility] RBC 3.23 (L) 3.80 - 5.10 Million/uL [facility] Hemoglobin 11.1 (L) 11.7 - 15.5 g/dL [facility] Hematocrit 32.1 (L) 35.0 - 45.0 % [facility] MCV 99.4 80.0 - 100.0 fL [place] MCH 34.4 (H) 27.0 - 33.0 pg [facility] MCHC 34.6 32.0 - 36.0 g/dL [place] RDW 13.5 11.0 - 15.0 % [facility] Platelets 86 (L) 140 - 400 Thousand/uL [facility] MPV 10.7 7.5 - 12.5 fL [facility] # Neutros 2,041 1,500 - 7,800 cells/uL [facility] # Lymphs 1,470 850 - 3,900 cells/uL [facility] # Monos 441 200 - 950 cells/uL [facility] # Eos 189 15 - 500 cells/uL [facility] # Baso 59 0 - 200 cells/uL [place] % Neutros 48.6 % [place] % Lymphs 35.0 % [place] % Monos 10.5 % [place] % Eos 4.5 % [place] % Baso 1.4 % [facility] Specimen Blood Narrative Performed At FASTING:NO [facility] FASTING: NO Resulting Agency Comment Performing Organization Information: Site ID: [id number] Name: [facility] Address: [address] [place] [id number] Director: Rosa Maria Amaya Performing Organization Address City/State/[facility] Phone Number [facility] [address] [place] [address] [place] after 12/19/2018 Insurance Payer Benefit Plan / Subscriber ID Type Phone Address Group BLUE CROSS/BLUE BCBS PPO POS EPO xxxxxxxxxxxx PPO [phone] [address] [place] [address] CDCREVIEW CDCREVIEW xxxxx[place] [address] Advance Directives Patient has advance care planning documents, and code status on file. For more information, please contact:[address] [phone] Code Status Date Activated Date Inactivated Comments Full Code 12/16/2019 5:48 AM 12/17/2019 12:33 PM This code status was determined by: Patient Full Code 12/09/2019 5:58 AM 12/09/2019 7:49 PM This code status was determined by: Patient Full Code 06/01/2016 5:35 PM 06/05/2016 3:51 PM This code status was determined by: Patient
--- OUTSIDE RECORDS SUMMARY | 2019-12-20 12:08 | XMS REPORT | Continuity of Care Document ---
:1950 Author Organization [facility] t Address [address] [place] [address] Dr. [address] [place] [address] Care Team Providers Name Role Phone John Ruizramosgracie Primary Care Physician Jeronimo HANEY Attending Clinician Unavailable Caprice He MD Attending Clinician Anish HANEY, A Attending Clinician Unavailable Caprice HE Attending Clinician Unavailable Gentry Taylor RN Attending Clinician Unavailable Moe Garcia MD Attending Clinician Yael Ogden Attending Clinician Unavailable Caprice Sena Attending Clinician Unavailable Mckay Attending Clinician Unavailable Evelyn CAMPOS Attending Clinician Unavailable Humble Oh MD Attending Clinician HUMBLE OH Attending Clinician Unavailable Harish Langford MD Attending Clinician Ajay Hassan LCSW Attending Clinician Unavailable Milton Attending Clinician Unavailable Steve Attending Clinician Unavailable Darci Gonzalez MD Attending Clinician DARCI GONZALEZ Attending Clinician Unavailable Glenna Garrido NP Attending Clinician Maribeth Mcdonald Attending Clinician Arley HANEY Attending Clinician Unavailable Ajay Hubbard Attending Clinician Unavailable Nelly Carlson NP Attending Clinician Nelly Nick Attending Clinician Broderick Owen PA-C Attending Clinician Chpi HANEY Attending Clinician Unavailable Alfred Morales Attending Clinician SALINAS STEVENS Attending Clinician Unavailable SUZANNE GONZALEZ Attending Clinician Unavailable Caprice HE Admitting Clinician Unavailable DARCI GONZALEZ Admitting Clinician Unavailable Payers Payer Name Policy Policy Number Effective Expiration Source Type Date Date BLUE CROSS/BLUE SHIELDBCBS PPO xxxxxxxxxxxx [facility] - [id number] [facility] [address] [id number] CDCREVIEWCDCREVIEWxxxxxxxxPO [place] [address] [facility] Center Problems Condition Condition Condition Status Onset Resolution Last Treating Co mments Source Name Details Category Date Date Treatment Clinician Date Pre-transp Pre-transp Disease Active [facility] 6[facility]08 [facility] - evaluation evaluation 00:00: Ca dical for for 00 Center chronic chronic liver liver disease disease Pre-transp Pre-transp Disease Active Last [facility] evaluation evaluation 00:00: t & Plan: Medical for liver for liver 00 She is an C enter transplant transplant acceptabl e candidate for liver transplan t pending formal review at [facility]. Obesity Obesity Disease Active Last [facility] - 00:00: t & Plan: Medical 00 She was Center encourage d to work on her diet and increase her physical activity as tolerated to aid in weight loss prior to transplan t. 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 Continue with follow up imaging as indicated . Chronic Chronic Disease Active [facility] kidney kidney 10-26 [facility] - disease, disease, 00:00: t & Plan: Med ical unspecifie unspecifie 00 Continue Center d CKD d CKD to follow stage stage up with Dr. Knowles for critical access hospital of kidney disease. Screening Screening Disease Active [facility] for for 10-26 [facility] - malignant malignant 00:00: [facility] dipesh neoplasm neoplasm 00 Center Fatty Fatty Disease Active [facility] St liver liver 10-26 [facility] - 00:00: t & Plan: Medical 00 She has Center decompens ated liver disease due to fatty liver disease. Bilateral Bilateral Disease Active [facility] edema of edema of 6-28 [facility] - lower lower 00:00: Medical extremity extremity 00 Cent er DM DM Disease Active 2015-07 [facility] (diabetes (diabetes 2-04 [facility] - mellitus) mellitus) 00:00: t & Plan: edical 00 She will Center require strict blood glucose control . Cirrhosis Cirrhosis Disease Active 2015-07 [facility] of liver of liver 08-03 [facility] - with with 00:00: Medical ascites ascites 00 Center PAOLA (acute PAOLA (acute Disease Active 2015-[address] kidney kidney 08-03 [facility] - injury) injury) 00:00: Medical 00 [place] Hepatic Hepatic Disease Active 2015-07 [facility] encephalop encephalop 1-30 [facility] - athy athy 00:00: Medical 00 Center Allergies, Adverse Reactions, Alerts This patient has no known allergies or adverse reactions. Family History Family Member Diagnosis Comments Start Date Stop Date Source Natural mother Liver disease [facility] Social History Social Habit Start Date Stop Date Quantity Comments Source Sex Assigned At [facility] Alcohol Comment 2018-08-02 2018-08-02 quit 2013 [facility] 00:00:00 00:00:00 [facility] Smoking Status Start Date Stop Date Source Never smoker [facility] Medications Ordered Filled Start Stop Current Ordering Indication Dosage Frequency Signature Comments Components Source Medication Medication Date Date Medication? Clinician (SIG) Name Name omeprazole 2019-0 2020- No 40mg QD Take [address] (PRILOSEC) 12-1515 by mouth Luke s - 40 MG 06:19: 00:00 daily . Medical capsule 03 :00 Center aspirin 81 Yes 81mg QD Take [address] MG EC -12 by mouth [facility] - tablet 14:09: daily. Medical 26 Center traMADol Yes 50mg QD Take [address] (ULTRAM) 50 09 by mouth Luke s - mg tablet 15:20: nightly . Med ical 19 Center aspirin 81 0 2020- No 81mg QD Take [address] MG EC 12-09 by mouth [facility] - tablet 15:20: 09:45 daily. Medical 19 :39 [place] atorvastati 2019- No Cirrhosis 20mg QD Take [address] n (LIPITOR) 12-08 of liver by mouth [facility] - 20 MG 08:55: 00:00 with daily. Medical tablet 01 :00 ascites, Center unspecified hepatic cirrhosis type (HCC) atorvastati Yes Cirrhosis 80mg QD Take [address] n (LIPITOR) 12-08 of liver tablet (80 [facility] - 80 MG 00:00: with mg total) Medical tablet 00 ascites, by mouth Cente r unspecified daily. hepatic cirrhosis type (HCC) clopidogreL 2020- Yes 75mg QD Take [address] (PLAVIX) 75 12-08-08 tablet (75 L ukes - mg tablet 00:00: 23:59 mg total) Me dical 00 :00 by mouth Center daily. aspirin 81 2019- No 81mg QD Take [address] MG EC 12-08- tablet (81 [facility] - tablet 00:00: 00:00 mg total) Medic al 00 :00 by mouth Center daily. furosemide 2019- Yes 10mg Q.5D Take [address] (LASIX) 20 5-27 by mouth 2 Jim es - MG tablet 13:20: (two) Medical 31 times Center daily . RESTASIS 2019-[address] [facility] 0.05 % 2-29 ONE DROP [facility] - ophthalmic 00:00: IN BOTH Medi dipesh emulsion 00 EYES BID Center ondansetron 2019- Yes Screening 4mg Take [address] [facility] (ZOFRAN-ODT 2-27 for tablet (4 Jim es - ) 4 MG 00:00: malignant mg total) M edical disintegrat 00 neoplasm by mouth Center ing tablet every 8 (eight) hours as needed for Nausea. rifAXIMin Yes Hepatic 550mg Q.5D Take [address] 550 mg Tab 2-12 encephalopa tablet [facility]ukes - 00:00: thy (HCC) (550 mg Medic al 00 total) by Center mouth 2 (two) times daily. lisinopril 2020- No Screening 5mg QD Take [address] (PRINIVIL,Z 08-1310 for tablet (5 Nessa kes - ESTRIL) 5 00:00: 23:59 malignant mg total) Medical MG tablet 00 :00 neoplasm by mouth Ce nter daily. ondansetron 2019- No Screening 4mg Take [address] (ZOFRAN-ODT 08-13 for tablet (4 Nessa kes - ) 4 MG 00:00: 00:00 malignant mg total) Medical disintegrat 00 :00 neoplasm by mouth 4 Center ing tablet (four) times daily as needed for Nausea. esomeprazol 2018-07 Yes 40mg Q.5D Take [address] e (NEXIUM) 1-21 capsule [facility]ukes - 40 MG 00:00: (40 mg Medical capsule 00 total) by Center mouth 2 (two) times daily. ondansetron 2018-07- No 4mg Take [address] (ZOFRAN-ODT 07-23 02-11 tablet (4 Nessa kes - ) 4 MG 00:00: 00:00 mg total) Medic al disintegrat 00 :00 by mouth 4 Ce nter ing tablet (four) times daily as needed for Nausea. ondansetron 2018-07 No Screening 4mg Take [address] (ZOFRAN) 4 07-06-11 for tablet (4 Jim es - MG tablet 00:00: 23:59 malignant mg total) Medical 00 :00 neoplasm by mouth 2 Cente r (two) times daily as needed for Nausea (Take as needed for nausea) for up to 7 days. lactulose Yes Hepatic 20g Q.5D Take [address] (CHRONULAC) 7-01 encephalopa mLs (20 g [facility]ukes - 20 gram/30 00:00: thy (HCC) total) by Medical mL solution 00 mouth 2 Cente r (two) times daily. rifAXIMin 2019- No Hepatic 550mg Q.5D Take [address] 550 mg Tab 12-31 encephalopa tablet [facility]ukes - 00:00: 00:00 thy (HCC) (550 mg Medi dipesh 00 :00 total) by Center mouth 2 (two) times daily. glimepiride Yes 1mg QD Take [address] (AMARYL) 1 08-02 by mouth [facility] - MG tablet 12:10: daily . Medic al 34 Center lactulose 2017-07 2019- No 20g Q.5D Take [address] (CHRONULAC) 07-30 mLs (20 g Nessa kes - 20 gram/30 00:00: 00:00 total) by M maeical mL solution 00 :00 mouth 2 Cente r (two) times daily. rifAXIMin 2018- No Other 550mg Q.5D Take [address] 550 mg Tab 03-08 cirrhosis tablet L ukes - 00:00: 00:00 of liver (550 mg Medic al 00 :00 (HCC) total) by Center mouth 2 (two) times daily. ondansetron 2018- No Screening 4mg Take [address] (ZOFRAN) 4 02-01 for tablet (4 Jim es - MG tablet 00:00: 00:00 malignant mg total) Medical 00 :00 neoplasm by mouth 2 Cente r (two) times daily as needed for Nausea (Take as needed for nausea) for up to 7 days. carvedilol 2019- No Screening TK [address] [facility] (COREG) 01-01 for BID [facility]ukes - 6.25 MG 00:00: 00:00 malignant Medi dipesh tablet 00 :00 neoplasm Center zinc 2019- No Cirrhosis 220mg Q.5D Take [address] sulfate -12-09 of liver capsule Luke s - (ZINCATE) 00:00: 00:00 with (220 mg Medi dipesh 220 (50) mg 00 :00 ascites, total) by Center capsule unspecified mouth 2 hepatic (two) cirrhosis times type (HCC) daily. magnesium Yes 400mg QD Take [address] oxide 2-16 mg by Lukes - (MAG-OX) 09:06: mouth Medical 400 mg 14 daily. Center tablet cholecalcif 2015-07 Yes 5000U QD Take 5,000 [facility] joshua, 1-30 Units by Kaylie - vitamin D3, 17:49: mouth Medic al 5,000 unit 49 daily. Center Tab Vital Signs Vital Name Observation Time Observation Value Comments Source Systolic blood 2019-12-17 07:33:00 158 mm[Hg] [facility] Diastolic blood 2019-12-17 07:33:00 68 mm[Hg] [facility] Heart rate 2019-12-17 07:33:00 77 /min [facility] Body temperature 2019-12-17 07:33:00 37.06 Viry [facility] Respiratory rate 2019-12-17 07:33:00 16 /min [facility] Oxygen saturation in 2019-12-17 07:33:00 98 /min [facility] - Arterial blood by Medical Ce nter Pulse oximetry Body height 2019-12-16 05:39:00 152.4 cm [facility] Body weight Measured 2019-12-16 05:39:00 79.107 kg [facility] BMI 2019-12-16 05:39:00 34.06 kg/m2 [facility] Procedures Procedure Date / Time Performing Clinician Source Performed VASCULAR DIAGRAM -SCAN 2019-12-19 07:52:48 Provider, [facility] CARDIAC CATH REPORT - SCAN 2019-12-19 07:52:46 Provider, Default [facility] RHYTHM STRIP - SCAN 2019-12-19 07:52:45 Provider, Default [facility] TRANSFUSION SERVICE REPORT 2019-12-17 18:12:13 Provider, Default [facility] POTASSIUM 2019-12-17 07:41:00 Bhavna Anne [facility] POCT-GLUCOSE METER 2019-12-17 07:24:00 Sandoval He [facility] BASIC METABOLIC PANEL (7) 2019-12-17 03:33:[address] [facility] CBC (HEMOGRAM ONLY) 2019-12-17 03:33:00 [facility] PROTHROMBIN TIME/INR 2019-12-17 03:33:00 [facility] POCT-GLUCOSE METER 2019-12-16 22:16:00 Neri Sandoval [facility] POCT-ACT 2019-12-16 20:25:00 Neri Sandoval [facility] POCT-ACT 2019-12-16 18:49:00 [facility] Sandoval [facility] POCT-ACT 2019-12-16 17:34:00 [facility] Sandoval [facility] POCT-ACT 2019-12-16 16:13:00 Neri Sandoval [facility] POCT-ACT 2019-12-16 14:56:00 Neri Sandoval [facility] POCT-ACT 2019-12-16 12:49:00 [facility] POCT-ACT 2019-12-16 09:10:00 [facility] Sandoval R [facility] POCT-ACT 2019-12-16 08:24:00 [facility] R & L CATH / CORONARY 2019-12-16 07:30:00 Neri Sandoval [facility] - ANGIOS / PCI [facility] BASIC METABOLIC PANEL (7) 2019-12-16 06:02:00 Sandoval He [facility] PROTHROMBIN TIME/INR 2019-12-16 06:02:00 [facility] TYPE AND SCREEN, AUTOMATED 2019-12-16 06:02:00 Neri [facility] CBC W/PLT COUNT & AUTO 2019-12-16 06:02:00 Neri Sandoval R [facility] SARS-COV2/RT-PCR ([facility] & 2019-12-14 10:59:[address] [facility] - REF LABS[facility] CARDIAC CATH REPORT - SCAN 2019-12-11 07:30:33 Provider, [facility] TRANSFUSION SERVICE REPORT 2019-12-10 18:53:12 Provider, [facility] - - SCAN Scanning [facility] R & L CATH / CORONARY 2019-12-09 07:30:00 Sandoval He [facility] - ANGIOS / PCI [facility] PROTHROMBIN TIME/INR 2019-12-09 06:35:00 Neri [facility] TYPE AND SCREEN, AUTOMATED 2019-12-09 06:35:00 Neri [facility] CBC W/PLT COUNT & AUTO 2019-12-09 06:35:00 Neri [facility] SARS-COV2/RT-PCR ([facility] & 2019-12-07 09:29:00 Barry Gonzalez [facility] - REF LABS) [facility] Center TRANSFUSION SERVICE REPORT 2019-11-28 17:53:45 Provider, [facility] - - SCAN Scanning [facility] TRANSFUSION SERVICE REPORT 2019-11-28 17:53:44 Provider, [facility] - - SCAN [facility] [place] MYOCARDIAL PERFUSION 2019-11-27 13:00:00 Manisha Oh [facility] SPECT, PHARM(LEXISCAN) Medical C enter TREADMILL 2019-11-27 10:42:26 Unknown, Hl7 [facility] - TOLERANCE(NON-NUCLEAR Medical Ce nter TREADMILL) ECG 12-LEAD 2019-11-27 10:36:48 Unknown, Hl7 [facility] ECHO W CONTRAST & DOPPLER 2019-11-27 09:14:27 Manisha Oh [facility] ECG 12-LEAD 2019-11-27 08:20:12 Manisha Oh [facility] CAROTID DOPPLER BILATERAL 2019-11-27 08:15:00 Manisha Oh [facility] URINALYSIS W/ MICROSCOPIC 2019-11-27 07:52:00 Manisha Oh [facility] BLOOD GAS, ARTERIAL 2019-11-27 07:32:00 Manisha Oh [facility] BLOOD TYPING, AUTOMATED 2019-11-27 07:19:00 Manisha Oh [facility] COMPREHENSIVE METABOLIC 2019-11-27 06:59:00 Manisha Oh [facility] BILIRUBIN, DIRECT 2019-11-27 06:59:00 Manisha Oh [facility] GAMMA GLUTAMYL TRANSFERASE 2019-11-27 06:59:00 Manisha Oh [facility] (GGT) [facility] CALCIUM, IONIZED 2019-11-27 06:59:00 Manisha Oh [facility] MAGNESIUM 2019-11-27 06:59:00 Manisha Oh [facility] PHOSPHORUS 2019-11-27 06:59:00 Adriano Manishaalma rosa Estes [facility] ANTI-NUCLEAR ANTIBODY (TARAN) 2019-11-27 06:59:00 Manisha Oh [facility] IRON, TIBC, % SAT. (WITHOUT 2019-11-27 06:59:00 Manisha Oh [facility] FERRITIN) [facility] LIPID PANEL 2019-11-27 06:59:00 Manisha Oh [facility] HEMOGLOBIN A1C 2019-11-27 06:59:00 Manisha Oh [facility] ETHANOL 2019-11-27 06:59:00 Manihsa Oh [facility] URIC ACID 2019-11-27 06:59:00 Manisha Oh [facility] TSH 2019-11-27 06:59:00 Manisha Oh [facility] T4 2019-11-27 06:59:00 Adriano Manishaalma rosa Estes [facility] HEPATITIS C ANTIBODY 2019-11-27 06:59:00 Manisha Oh [facility] HIV-1 ANTIGEN WITH HIV-1/2 2019-11-27 06:59:00 Manisha Oh [facility] CYTOMEGALOVIRUS ANTIBODY, 2019-11-27 06:59:00 Manisha Oh [facility] IGG [facility] CYTOMEGALOVIRUS ANTIBODY, 2019-11-27 06:59:00 Manisha Oh [facility] IGM [facility] EBV ANTIBODY, IGM 2019-11-27 06:59:00 Manisha Oh [facility] RPR 2019-11-27 06:59:00 Manisha Oh [facility] T SPOT TB 2019-11-27 06:59:00 Manisha Oh [facility] [id number] 2019-11-27 06:59:00 Manisha Oh [facility] QUANTITATION & PHENOTYPE [facility] RUBELLA ANTIBODY, IGG 2019-11-27 06:59:00 Manisha Oh [facility] VARICELLA ZOSTER ANTIBODY, 2019-11-27 06:59:00 Manisha Oh [facility] CRYPTOCOCCAL ANTIGEN 2019-11-27 06:59:00 Manisha Oh [facility] TARAN TITER AND PATTERN 2019-11-27 06:59:00 Manisha Oh [facility] TYPE AND SCREEN, AUTOMATED 2019-11-27 06:59:00 Manisha Oh [facility] CBC W/PLT COUNT & AUTO 2019-11-27 06:59:00 Manisha Oh [facility] DIFFERENTIAL [facility] FIBRINOGEN 2019-11-27 06:58:00 Manisha Oh [facility] PROTHROMBIN TIME/INR 2019-11-27 06:58:00 Manisha Oh [facility] APTT 2019-11-27 06:58:00 Manisha Oh [facility] MITOCHONDRIA M2 ANTIBODY 2019-11-27 06:58:00 Manisha Oh [facility] (IGG) [facility] ACTIN (SMOOTH MUSCLE) 2019-11-27 06:58:[address] [facility] - ANTIBODY, IGG Medical Center TRANSFERRIN 2019-11-27 06:58:00 Manisha Oh [facility] FERRITIN 2019-11-27 06:58:00 Manisha Oh [facility] VITAMIN D, 25-HYDROXY 2019-11-27 06:58:00 Manisha Oh [facility] CARBOHYDRATE ANTIGEN 19-9 2019-11-27 06:58:00 Manisha Oh [facility] (CA 19-9) [facility] CARCINOEMBRYONIC ANTIGEN 2019-11-27 06:58:00 Manisha Oh [facility] (CEA) [facility] ZINC 2019-11-27 06:58:00 Manisha Oh [facility] T3 2019-11-27 06:58:00 Manisha Oh [facility] HEPATITIS A ANTIBODY, IGG 2019-11-27 06:58:00 Adriano Manisha [facility] HEPATITIS A ANTIBODY, IGM 2019-11-27 06:58:00 Adriano [facility] HE[facility] B CORE ANTIBODY, 2019-11-27 06:58:00 Manisha Oh [facility] IGM [facility] MUMPS ANTIBODY, IGG 2019-11-27 06:58:00 Manisha Oh [facility] RUBEOLA ANTIBODY IGG 2019-11-27 06:58:00 Manisha Oh I [facility] XR MANDIBLE 4 VIEWS MIN 2019-11-20 13:00:00 Manisha Oh [facility] XR CHEST 2 VIEWS 2019-11-20 12:50:00 Manisha Oh [facility] XR DXA BONE DENSITY STUDY 2019-11-20 12:44:00 Manisha Oh [facility] MR ABDOMEN WITH & WITHOUT 2019-11-08 10:45:00 Barry Gonzalez [facility] POCT-CREATININE 2019-11-08 10:13:00 Barry Gonzalez [facility] ALPHA FETOPROTEIN (AFP), 2019-08-13 15:47:00 Barry Gonzalez [facility] TUMOR MARKER [facility] PROTHROMBIN TIME/INR 2019-08-13 15:47:00 Barry Gonzalez [facility] HEPATIC FUNCTION PANEL 2019-08-13 15:47:00 Barry Gonzalez [facility] BASIC METABOLIC PANEL (7) 2019-08-13 15:47:00 Barry Gonzalez [facility] TSH 2019-08-13 15:47:00 Barry Gonzalez [facility] CBC W/PLT COUNT & AUTO 2019-08-13 15:47:[address] [facility] BASIC METABOLIC PANEL (7) 2019-05-23 10:37:00 Barry Gonzalez [facility] HEPATIC FUNCTION PANEL 2019-05-23 10:37:00 Barry Gonzalez [facility] PROTHROMBIN TIME/INR 2019-05-23 10:37:00 Barry Gonzalez [facility] ALPHA FETOPROTEIN (AFP), 2019-05-23 10:37:00 Barry Gonzalez [facility] TUMOR MARKER [facility] CBC W/PLT COUNT & AUTO 2019-05-23 10:37:[address] [facility] MR ABDOMEN WITH & WITHOUT 2019-05-10 08:50:00 Barry Gonzalez [facility] POCT-CREATININE 2019-05-10 08:11:00 Barry Gonzalez [facility] ALPHA FETOPROTEIN (AFP), 2018-12-27 16:21:00 Barry Gonzalez [facility] TUMOR MARKER [facility] PROTHROMBIN TIME/INR 2018-12-27 16:21:00 Barry Gonzalez [facility] CBC W/PLT COUNT & AUTO 2018-12-27 16:21:00 Barry Gonzalez [facility] DIFFERENTIAL [facility] HEPATIC FUNCTION PANEL 2018-12-27 16:21:00 Barry Gonzalez [facility] BASIC METABOLIC PANEL (7) 2018-12-27 16:21:00 Barry Gonzalez [facility] Plan of Care Planned Activity Planned Date Details Comments Source Future Scheduled Test 2020-05-29 HEMOGLOBIN A1C [code = [facility] - 00:00:00 HEMOGLOBIN A1C] Medical Cent er Future Scheduled Test 2020-03-[address] [facility] - 00:[facility]00 (Season Ended) [code = [facility] INFLUENZA VACCINE (Season Ended)] Future Scheduled Test 2015 [facility] [address] HIGH/HIGHEST RISK (1 Medical Center of 2 - PCV13) [code = PNEUMOCOCCAL 65+ HIGH/HIGHEST RISK (1 of 2 - PCV13)] Future Scheduled Test 1960 DIABETIC EYE EXAM [facility] - 00:00:00 [code = DIABETIC EYE Medical Center EXAM] Future Scheduled Test 1960 [facility] examination Medical Center (regime/therapy) [code = 635134499] Future Scheduled Test 1950 [facility]CER [facility] - [facility] SCREENING [code = Medical nter BREAST CANCER SCREENING] Future Scheduled Test 1950 COLON CANCER SCREENING [facility] COLONOS[facility] [code = Medical Center COLON CANCER SCREENING COLONOSCOPY] Future Appointment 2020-01-06 Barry Gonzalez MD, [address] [facility] - 09:00:[address], [place] [address] Results Test Description Test Time Test Comments Results Result Comments Source Potassium 2019-12-17 08:09:00 Test Item Value Reference Range Interpretation Comme nts Potassium (test code = 2823-3) 5.1 meq/L 3.5-5.1 JOHN (test code = JOHN) Lung Splitter ID - [id number] F Lab Interpretation (test code = 51515-3) Normal [facility] 08:09:00 Test Item Value Reference Range Interpretation Comments POTASSIUM (BEAKER) (test code = 5.1 meq/L 3.5-5.1 379) Lung Splitter ID - FRANKIE FPOC-Glucose [id number] 07:36:00 Test Item Value Reference Range Interpretation Comments POC-Glucose Meter (test 147 mg/dL 70-110 H : TE STED AT [facility] code = 1538) [address] [facility], 770 30: Lung Splitter/Techni ludin ID = [id number] for DO LINA RIS Lab Interpretation (test Abnormal code = 43878-3) [facility] [id number] 07:36:00 Test Item Value Reference Range Interpretation Comments POC-GLUCOSE METER 147 mg/dL 70-110 H : TESTED A T [facility] 6720 (BEAKER) (test code = [place] [facility] [place], 1538) [address]: Lung Splitter/Techni ludin ID = [id number] for DO LINA RIS Basic metabolic [id number] 04:22:00 Test Item Value Reference Range Interpretation Comments Sodium (test code = 137 meq/L 403-215 0399-2) Potassium (test code 5.8 meq/L 3.5-5.1 H Specime n slightly = 2823-3) hemolyzed Chloride (test code = 114 meq/L 98-107 H 2075-0) CO2 (test code = 19 meq/L 22-29 L 2028-9) BUN (test code = 27 mg/dL 7-21 H 3094-0) Creatinine (test code 1.85 mg/dL 0.57-1.25 H Specim en slightly = 2160-0) hemolyzed Glucose (test code = 117 mg/dL 70-105 H 2345-7) Calcium (test code = 7.3 mg/dL 8.4-10.2 L 93772-5) EGFR (test code = 27 mL/min/1.73 [place] [address]-8) NOT ACCURATE CREATININE CLEARANCE IN PREDICTING GLOMERULAR FILTRATION RATE . ESTIMATED GFR I S NOT APPLICABLE FOR DIALYSIS PATIENTS. JOHN (test code = JOHN) Lung Splitter ID - POOJA Dahl slightly icteric Lab Interpretation Abnormal (test code = 17413-1) [facility]OLIC [id number] 04:22:00 Test Item Value Reference Range Interpretation Comments SODIUM (BEAKER) 137 meq/L 136-145 (test code = 381) POTASSIUM (BEAKER) 5.8 meq/L 3.5-5.1 H Specimen slightly (test code = 379) hemolyzed CHLORIDE (BEAKER) 114 meq/L 98-107 H (test code = 382) CO2 (BEAKER) (test 19 meq/L 22-29 L code = 355) BLOOD UREA NITROGEN 27 mg/dL 7-21 H (BEAKER) (test code = 354) CREATININE (BEAKER) 1.85 mg/dL 0.57-1.25 H Specimen slightly (test code = 358) hemolyzed GLUCOSE RANDOM 117 mg/dL 70-105 H (BEAKER) (test code = 652) CALCIUM (BEAKER) 7.3 mg/dL 8.4-10.2 L (test code = 697) EGFR (BEAKER) (test 27 mL/min/1.73 ESTIMA LESIA GFR IS code = 1092) sq m NOT ACCURATE CREATININE CLEARANCE IN PREDICTING GLOMERULAR FILTRATION RATE . ESTIMATED GFR I S NOT APPLICABLE FOR DIALYSIS PATIEN TS. Lung Splitter ID - POOJA Dahl slightly ictericCBC (Hemogram only)2019-12-17 03:59:00 Test Item Value Reference Range Interpretation Comments WBC (test code = 6690-2) 5.0 3.5- 10.5 K/L RBC (test code = 789-8) 2.42 3.93- 5.22 M/L L MCHC (test code = 786-4) 31.9 32.2- 35.5 GM/DL L Hematocrit (test code = 4544-3) 24.8 % 34.1-44.9 L MCV (test code = 787-2) 102.5 fL 79.4-94.8 H MCH (test code = 785-6) 32.6 pg 25.6-32.2 H RDW (test code = 788-0) 15.1 % 11.7-14.4 H Platelets (test code = 777-3) 59 150- 450 K/CU MM L MPV (test code = 59760-8) 11.9 fL 9.4-12.3 nRBC (test code = 413) 0 0- 0 /100 WBC Lab Interpretation (test code = Abnormal 11394-7) [facility] CenterProthrombin time/[id number] 03:59:00 Test Item Value Reference Range Interpretation Comments Protime (test code = 21.1 11.9- 14.2 H 5902-2) seconds INR (test code = 1.9 <=5.9 6301-6) JOHN (test code = JOHN) Effective 11/28/2018: PT Reference Range ChangeNew: 11.9-14.2 Previous: 11.7-14.7 RECOMMENDED COUMADIN/WARFARIN INR THERAPY RANGESSTANDARD DOSE: 2.0-3.0 Includes: PROPHYLAXIS for venous thrombosis, systemic embolization; TREATMENT for venous thrombosis and/or pulmonary embolus.HIGH RISK: Target INR is 2.5-3.5 for patients wiht mechanical heart valves. Lab Interpretation Abnormal (test code = 91202-4) [facility] CenterPROTHROMBIN TIME/[id number] 03:59:00 Test Item Value Reference Range Interpretation Comments PROTIME (BEAKER) (test code = 21.1 seconds 11.9-14.2 H 759) INR (BEAKER) (test code = 370) 1.9 <=5.9 Effective 11/28/2018: PT Reference Range ChangeNew: 11.9-14.2 Previous: 11.7- 14.7RECOMMENDED COUMADIN/WARFARIN INR THERAPY RANGESSTANDARD DOSE: 2.0-3.0 Includes: PROPHYLAXIS for venous thrombosis, systemic embolization; TREATMENT for venous thrombosis and/or pulmonary embolus.HIGH RISK: Target INR is2.5-3.5 for patients wiht mechanical heart valves.CBC (HEMOGRAM ONLY)2019-12-17 03:59:00 Test Item Value Reference Range Interpretation Comments WHITE BLOOD CELL COUNT (BEAKER) 5.0 K/ L 3.5-10.5 (test code = 775) RED BLOOD CELL COUNT (BEAKER) 2.42 M/ L 3.93-5.22 L (test code = 761) HEMOGLOBIN (BEAKER) (test code = 7.9 GM/DL 11.2-15.7 L 410) HEMATOCRIT (BEAKER) (test code = 24.8 % 34.1-44.9 L 411) MEAN CORPUSCULAR VOLUME (BEAKER) 102.5 fL 79.4-94.8 H (test code = 753) MEAN CORPUSCULAR HEMOGLOBIN 32.6 pg 25.6-32.2 H (BEAKER) (test code = 751) MEAN CORPUSCULAR HEMOGLOBIN CONC 31.9 GM/DL 32.2-35.5 L (BEAKER) (test code = 752) RED CELL DISTRIBUTION WIDTH 15.1 % 11.7-14.4 H (BEAKER) (test code = 412) PLATELET COUNT (BEAKER) (test code 59 K/CU MM 150-450 L = 756) MEAN PLATELET VOLUME (BEAKER) 11.9 fL 9.4-12.3 (test code = 754) NUCLEATED RED BLOOD CELLS (BEAKER) 0 /100 WBC 0-0 (test code = 413) POCT-GLUCOSE [id number] 22:27:00 Test Item Value Reference Range Interpretation Comments POC-GLUCOSE METER 144 mg/dL 70-110 H : TESTED [place] [address] (BEAKER) (test code = [facility], 1538) [address]: Lung Splitter/Techni ludin ID = [id number] for MU SEBE, ASHKAN POC ACTIVATED CLOTTING [id number] 21:17:00 Test Item Value Reference Range Interpretation Comments Activated Clotting Time 164 sec : 74 -137 seconds, (test code = 441) Baseline: TESTED AT [address], [address]: Lung Splitter/Techni ludin ID = [id number] for MU SEBE, ASHKAN [facility] CenterPOCT-[id number] 21:17:00 Test Item Value Reference Range Interpretation Comments ACTIVATED CLOTTING TIME 164 sec : 74 -137 seconds, (BEAKER) (test code = Raegan ne: TESTED AT 441) [facility] [address] [place] [address], [address]: Lung Splitter/Techni ludin ID = [id number] for MU SEBE, ASHKAN [id number] 21:17:00 Test Item Value Reference Range Interpretation Comments ACTIVATED CLOTTING TIME 169 sec : 74 -137 seconds, (BEAKER) (test code = Raegan ne: TESTED AT 441) [address], [facility] [place] 30: Lung Splitter/Techni ludin ID = [id number] for Kh avavka, Viktoryia [id number] 21:17:00 Test Item Value Reference Range Interpretation Comments ACTIVATED CLOTTING TIME 175 sec : 74 -137 seconds, (BEAKER) (test code = Baseli ne: TESTED AT 441) [place] [address] 30: Lung Splitter/Techni ludin ID = [id number] for Kh avavka, Viktoryia [id number] 21:17:00 Test Item Value Reference Range Interpretation Comments ACTIVATED CLOTTING TIME 180 sec : 74 -137 seconds, (BEAKER) (test code = Baseli ne: TESTED AT [facility]) [place] [address] 30: Lung Splitter/Techni ludin ID = [id number] for Kh avavka, Viktoryia [id number] 21:16:00 Test Item Value Reference Range Interpretation Comments ACTIVATED CLOTTING TIME 186 sec : 74 -137 seconds, (BEAKER) (test code = Baseli ne: TESTED AT [facility]) [address], [facility] 30: Lung Splitter/Techni ludin ID = [id number] for Kh avavka, Viktoryia [id number] 21:16:00 Test Item Value Reference Range Interpretation Comments ACTIVATED CLOTTING TIME 208 sec : 74 -137 seconds, (BEAKER) (test code = Baseli ne: TESTED AT [facility]) [place] [address] 30: Lung Splitter/Techni ludin ID = [id number] for Kh avavka, Viktoryia [id number] 09:31:00 Test Item Value Reference Range Interpretation Comments ACTIVATED CLOTTING TIME 389 sec : 74 -137 seconds, (BEAKER) (test code = Baseli ne: TESTED AT [facility]) [place] [address] 30: Lung Splitter/Techni ludin ID = [id number] for JANICE HILL [id number] 08:45:00 Test Item Value Reference Range Interpretation Comments ACTIVATED CLOTTING TIME 323 sec : 74 -137 seconds, (BEAKER) (test code = Baseli ne: TESTED AT [facility]) [address] [place], [address]: Lung Splitter/Techni ludin ID = [id number] for JANICE HILL Type and screen, [id number] 07:17:00 Test Item Value Reference Range Interpretation Comments ABO/RH AUTOMATED (BEAKER) (test O POSITIVE code = 2260) Ab Scrn (test code = 890-4) NEGATIVE [facility] METABOLIC [id number] 07:03:00 Test Item Value Reference Range Interpretation Comments SODIUM (BEAKER) 138 meq/L 136-145 (test code = 381) POTASSIUM (BEAKER) 5.1 meq/L 3.5-5.1 (test code = 379) CHLORIDE (BEAKER) 112 meq/L 98-107 H (test code = 382) CO2 (BEAKER) (test 20 meq/L 22-29 L code = 355) BLOOD UREA NITROGEN 27 mg/dL 7-21 H (BEAKER) (test code = 354) CREATININE (BEAKER) 2.16 mg/dL 0.57-1.25 H (test code = 358) GLUCOSE RANDOM 121 mg/dL 70-105 H (BEAKER) (test code = 652) CALCIUM (BEAKER) 7.8 mg/dL 8.4-10.2 L (test code = 697) EGFR (BEAKER) (test 23 mL/min/1.73 ESTIMA LESIA GFR IS code = 1092) sq m NOT ACCURATE CREATININE CLEARANCE IN PREDICTING GLOMERULAR FILTRATION RATE . ESTIMATED GFR I S NOT APPLICABLE FOR DIALYSIS PATIEN TS. Lung Splitter ID - PIAYA LSpecimen slightly ictericPROTHROMBIN TIME/[id number] 06:34:00 Test Item Value Reference Range Interpretation Comments PROTIME (BEAKER) (test code = 20.8 seconds 11.9-14.2 H 759) INR (BEAKER) (test code = 370) 1.8 <=5.9 Effective 11/28/2018: PT Reference Range ChangeNew: 11.9-14.2 Previous: 11.7- 14.7RECOMMENDED COUMADIN/WARFARIN INR THERAPY RANGESSTANDARD DOSE: 2.0-3.0 Includes: PROPHYLAXIS for venous thrombosis, systemic embolization; TREATMENT for venous thrombosis and/or pulmonary embolus.HIGH RISK: Target INR is2.5-3.5 for patients wiht mechanical heart valves.Within 24 hours, if on CoumadinCBC with platelet count + automated [id number] 06:22:00 Test Item Value Reference Range Interpretation Comments WBC (test code = 6690-2) 4.7 3.5- 10.5 K/L RBC (test code = 789-8) 2.63 3.93- 5.22 M/L L MCHC (test code = 786-4) 32.1 32.2- 35.5 GM/DL L Hematocrit (test code = 4544-3) 26.8 % 34.1-44.9 L MCV (test code = 787-2) 101.9 fL 79.4-94.8 H MCH (test code = 785-6) 32.7 pg 25.6-32.2 H RDW (test code = 788-0) 15.3 % 11.7-14.4 H Platelets (test code = 777-3) 60 150- 450 K/CU MM L MPV (test code = 28604-5) 11.5 fL 9.4-12.3 nRBC (test code = 413) 0 0- 0 /100 WBC % Neutros (test code = 429) 53 % % Lymphs (test code = 430) 30 % % Monos (test code = 431) 11 % % Eos (test code = 432) 4 % % Baso (test code = 437) 1 % # Neutros (test code = 670) 2.50 1.56- 6.13 K/L # Lymphs (test code = 414) 1.42 1.18- 3.74 K/L # Monos (test code = 415) 0.53 0.24- 0.36 K/L H # Eos (test code = 416) 0.18 0.04- 0.36 K/L # Baso (test code = 417) 0.06 0.01- 0.08 K/L Immature Granulocytes-Relative 0 % 0-1 (test code = 2801) Lab Interpretation (test code = Abnormal 70688-9) [facility] CenterCB [facility]/PLT COUNT & AUTO [id number] 06:22:00 Test Item Value Reference Range Interpretation Comments WHITE BLOOD CELL COUNT (BEAKER) 4.7 K/ L 3.5-10.5 (test code = 775) RED BLOOD CELL COUNT (BEAKER) 2.63 M/ L 3.93-5.22 L (test code = 761) HEMOGLOBIN (BEAKER) (test code = 8.6 GM/DL 11.2-15.7 L 410) HEMATOCRIT (BEAKER) (test code = 26.8 % 34.1-44.9 L 411) MEAN CORPUSCULAR VOLUME (BEAKER) 101.9 fL 79.4-94.8 H (test code = 753) MEAN CORPUSCULAR HEMOGLOBIN 32.7 pg 25.6-32.2 H (BEAKER) (test code = 751) MEAN CORPUSCULAR HEMOGLOBIN CONC 32.1 GM/DL 32.2-35.5 L (BEAKER) (test code = 752) RED CELL DISTRIBUTION WIDTH 15.3 % 11.7-14.4 H (BEAKER) (test code = 412) PLATELET COUNT (BEAKER) (test code 60 K/CU MM 150-450 L = 756) MEAN PLATELET VOLUME (BEAKER) 11.5 fL 9.4-12.3 (test code = 754) NUCLEATED RED BLOOD CELLS (BEAKER) 0 /100 WBC 0-0 (test code = 413) NEUTROPHILS RELATIVE PERCENT 53 % (BEAKER) (test code = 429) LYMPHOCYTES RELATIVE PERCENT 30 % (BEAKER) (test code = 430) MONOCYTES RELATIVE PERCENT 11 % (BEAKER) (test code = 431) EOSINOPHILS RELATIVE PERCENT 4 % (BEAKER) (test code = 432) BASOPHILS RELATIVE PERCENT 1 % (BEAKER) (test code = 437) NEUTROPHILS ABSOLUTE COUNT 2.50 K/ L 1.56-6.13 (BEAKER) (test code = 670) LYMPHOCYTES ABSOLUTE COUNT 1.42 K/ L 1.18-3.74 (BEAKER) (test code = 414) MONOCYTES ABSOLUTE COUNT (BEAKER) 0.53 K/ L 0.24-0.36 H (test code = 415) EOSINOPHILS ABSOLUTE COUNT 0.18 K/ L 0.04-0.36 (BEAKER) (test code = 416) BASOPHILS ABSOLUTE COUNT (BEAKER) 0.06 K/ L 0.01-0.08 (test code = 417) IMMATURE GRANULOCYTES-RELATIVE 0 % 0-1 PERCENT (BEAKER) (test code = 2801) SARS-CoV2/RT-PCR ([facility])2019-12-15 15:58:00 Test Item Value Reference Range Interpretation Comments SARS-COV2/RT-PCR (test code = Negative Not Detected, Negative 11502-5) SARS-COV-2 PERFORMING LAB CPL (test code = 84828-3) [facility]2019-12-15 15:58:00 Test Item Value Reference Range Interpretation Comments SARS-COV2/RT-PCR (test code = Negative Not Detected, Negative 5250569) SARS-COV-2 PERFORMING LAB CPL (test code = 6698506) PROTHROMBIN TIME/[id number] 07:00:00 Test Item Value Reference Range Interpretation Comments PROTIME (BEAKER) (test code = 18.6 seconds 11.9-14.2 H 759) INR (BEAKER) (test code = 370) 1.6 <=5.9 Effective 11/28/2018: PT Reference Range ChangeNew: 11.9-14.2 Previous: 11.7- 14.7RECOMMENDED COUMADIN/WARFARIN INR THERAPY RANGESSTANDARD DOSE: 2.0-3.0 Includes: PROPHYLAXIS for venous thrombosis, systemic embolization; TREATMENT for venous thrombosis and/or pulmonary embolus.HIGH RISK: Target INR is2.5-3.5 for patients wiht mechanical heart valves.Within 24 hours, if on CoumadinCBC W/PLT COUNT & AUTO [id number] 06:44:00 Test Item Value Reference Range Interpretation Comments WHITE BLOOD CELL COUNT (BEAKER) 4.6 K/ L 3.5-10.5 (test code = 775) RED BLOOD CELL COUNT (BEAKER) 2.53 M/ L 3.93-5.22 L (test code = 761) HEMOGLOBIN (BEAKER) (test code = 8.5 GM/DL 11.2-15.7 L 410) HEMATOCRIT (BEAKER) (test code = 25.8 % 34.1-44.9 L 411) MEAN CORPUSCULAR VOLUME (BEAKER) 102.0 fL 79.4-94.8 H (test code = 753) MEAN CORPUSCULAR HEMOGLOBIN 33.6 pg 25.6-32.2 H (BEAKER) (test code = 751) MEAN CORPUSCULAR HEMOGLOBIN CONC 32.9 GM/DL 32.2-35.5 (BEAKER) (test code = 752) RED CELL DISTRIBUTION WIDTH 15.6 % 11.7-14.4 H (BEAKER) (test code = 412) PLATELET COUNT (BEAKER) (test code 75 K/CU MM 150-450 L = 756) MEAN PLATELET VOLUME (BEAKER) 12.0 fL 9.4-12.3 (test code = 754) NUCLEATED RED BLOOD CELLS (BEAKER) 0 /100 WBC 0-0 (test code = 413) NEUTROPHILS RELATIVE PERCENT 49 % (BEAKER) (test code = 429) LYMPHOCYTES RELATIVE PERCENT 33 % (BEAKER) (test code = 430) MONOCYTES RELATIVE PERCENT 12 % (BEAKER) (test code = 431) EOSINOPHILS RELATIVE PERCENT 5 % (BEAKER) (test code = 432) BASOPHILS RELATIVE PERCENT 1 % (BEAKER) (test code = 437) NEUTROPHILS ABSOLUTE COUNT 2.26 K/ L 1.56-6.13 (BEAKER) (test code = 670) LYMPHOCYTES ABSOLUTE COUNT 1.53 K/ L 1.18-3.74 (BEAKER) (test code = 414) MONOCYTES ABSOLUTE COUNT (BEAKER) 0.54 K/ L 0.24-0.36 H (test code = 415) EOSINOPHILS ABSOLUTE COUNT 0.24 K/ L 0.04-0.36 (BEAKER) (test code = 416) BASOPHILS ABSOLUTE COUNT (BEAKER) 0.06 K/ L 0.01-0.08 (test code = 417) IMMATURE GRANULOCYTES-RELATIVE 0 % 0-1 PERCENT (BEAKER) (test code = 2801) SARS-COV2/RT-PCR ([facility])2019-12-08 12:26:00 Test Item Value Reference Range Interpretation Comments SARS-COV2/RT-PCR (test code = Negative Not Detected, Negative ) SARS-COV-2 PERFORMING LAB CPL (test code = 3956410) T Spot [id number] 07:43:00 Test Item Value Reference Range Interpretation Comments T-Spot TB (test code = 21011-3) Negative Neg Ctrl Spot Count (test code = 0 96934-6) Panel A Spot (test code = 33704-7) 0 Panel B Spot (test code = 95751-6) [address] (test code = 0 68558-9) Scan Result (test code = 3497733) [facility] CenterMitochondria M2 Antibody (IgG)2019-12-02 00:10:00 Test Item Value Reference Range Interpretation Comments Mitochondria M2 Ab <20.0 See Note: U Reference (test code = Range:NEGATIVE: ) < OR = 20.0EQUIVOCAL: 20.1-24.9POSITI V E: > OR = 25.0 JOHN (test code = Performing Lab JOHN) [facility] [address] [place] [address] Brett Sarmiento MD, PhD, MAGDALENA [facility] CenterZinc2020-05-30 20:41:00 Test Item Value Reference Interpretation Comments Range Zinc (test code = 30 60- 130 mcg/dL L This te st was ) developed and i ts analytical performance characteristics have been determined by [facility] . It has not been cleared or appr satnam by theFDA. This assay has been validated pursu ant to the CLIA regulations and is used for clinic al purposes. JOHN (test code = Performing Lab JOHN) *NOBLE I AM AT [facility], [address] [place] [address] Gentry Fink MD, PhD Lab Interpretation Abnormal (test code = 56176-9) [facility] CenterActin (Smooth Muscle) Antibody, [id number] 23:11:00 Test Item Value Reference Range Interpretation Comments Anti-Smooth <20 See Note: U Reference Range :<20 Muscle Ab NEGATIVE> O R = 20 (test code = POSITIVE Antibo dies ) recognizing act in are the main compon entof smooth muscle antibodies asso ciated withautoimmune liver disease. Actin antibodies aref ound in approximatel y 75% of patients withautoimmune hepatitis (AIH) type 1, approximatel y65% of patients wit h autoimmune cholangitis,tasha roxima tely 30% of pat ients with primary biliarycirrhosi s, and approximately 2 % of healthy people. High values are clos tash correlated with AIH type 1. JOHN (test code Performing Lab = JOHN) [facility] [employer] [place] [address] [place] [address] Brett Sarmiento MD, PhD, MAGDALENA [facility] CenterMumps antibody, [id number] 21:34:00 Test Item Value Reference Range Interpretation Comments Mumps Ab Igg >300.00 AU/mL REFERENCE RANGE : <9.00 (test code = AU/mL 6695517) Interpretation< 9.00 Negative9.0 0-10.99 Equivocal>10. 99 Positive A pos itive result indicate s that the patient hasanti body to mumps virus. It does not differentiatebe tween an active or past infection. The clinicaldia gnosis must be interpreted in conjunction wit hclinical signs and sympt oms of the patient. JOHN (test Performing Lab code = JOHN) *[employer] [facility], [facility]. [address] [place] [address] Sujey Dewitt MD [facility] CenterRubeola antibody [id number] 20:37:00 Test Item Value Reference Range Interpretation Comments Rubeola Ab, >300.00 AU/mL REFERENCE RANGE : Igg (test code <13.50 AU/mL = 84868-8) AU/mL Interpretation ==== <13.50 Negative 13.50-16.49 Equivocal >16.49 Positive A posi tive result indicate s that the patient hasantibody to measles virus. It does notdifferentiat e between an acti ve or past infection. The clinical diagno sis must be interpr eted inconjunction w ith clinical signs and symptoms ofthe patient. For additional information, pl ease refer [email or web address] stDiagnostics.c om/faq/ KFQ481(This koby k is being provided for informational/e ducatio nal purposes on ly.) JOHN (test code Performing Lab = JOHN) *[employer] [facility], [facility]. [address] [place] [address] Sujey Dewitt MD [facility] CenterCarbohydrate antigen 19-9 (CA 19-9)2019-11-29 14:34:00 Test Item Value Reference Interpretation Comments Range CA 19-9 (test code 87 U/mL <34 H This michel t was = 02194-8) performed using the Siemens Chemiluminescen t method.Values obtained from different assay methods cannot be used interchangeably .CA19- 9 levels, regar dless of value, shoul d not be interpreted as absoluteevidenc e of the presence or absence of dise ase. JOHN (test code = Performing Lab JOHN) EZ I AM AT [facility] [address] [place] [address] Brett Sarmiento MD, PhD, MAGDALENA Lab Interpretation Abnormal (test code = 11267-0) [facility] CenterAnti-Nuclear Antibody (TARAN)2019-11-29 10:52:00 Test Item Value Reference Range Interpretation Comments TARAN (test code = 83805-6) Positive Negative A JOHN (test code = JOHN) Test performed by IFA method. Lab Interpretation (test Abnormal code = 75266-0) [facility] CenterANA Titer & [id number] 10:52:00 Test Item Value Reference Range Interpretation Comments TARAN Titer (test code = 51567-1) 1:160 TARAN Pattern (test code = 1781) Homogeneous [facility] CenterANTI-NUCLEAR ANTIBODY (TARAN)2019-11-29 10:52:00 Test Item Value Reference Range Interpretation Comments ANTI-NUCLEAR ANTIBODY (TARAN) (BEAKER) Positive Negative A (test code = 418) Test performed by IFA method.TARAN TITER AND [id number] 10:52:00 Test Item Value Reference Range Interpretation Comments TARAN TITER (BEAKER) (test code = :160 1541) TARAN PATTERN (BEAKER) (test code = Homogeneous 1781) 17:58:00 Test Item Value Reference Range Interpretation Comments T3, Total (test code = 95 ng/dL 48-159 3053-6) JOHN (test code = JOHN) T3, Total=ng/dlReference Elsvm40-718 ng/dlTest performed by [facility] Lab Interpretation (test Normal code = 23205-7) [facility] CenterT32020-05-28 17:58:00 Test Item Value Reference Range Interpretation Comments T3 TOTAL (BEAKER) (test code = 656) 95 ng/dL 48-159 T3, Total=ng/dlReference Wbylk50-749 ng/dlTest performed by I AM AT ECHO W CONTRAST & [id number] 18:54:34Ejection FractionSLEH ECHO HEARTLAB MKCKESSON CPACSInterface, External Ris In - 11/27/2019 6:54 PM C DTTransthoracic Echocardiography Report (TTE) Demographics Patient Name JORDYN CUEVAS Date ofStudy 11/27/2019 VIVIAN Gender Female Visit Number [id number] Race Unknown Room Number OP Number Date of 1950 Referring Adriano Estes Physician Age 69 year(s) Pipe Stem Sawyer Hung Ledbetter [facility] Car Parker Nathan Lawrence Interpreting Physician WILMAN Tello Procedure Type of Study TTE procedure:2DECHO W/CONTRAST & DOPPLER (Routine) Indications:Pre transplant evaluation for liver.Clinical HistoryCirrhosis, PAOLA, DM, Obesity, HLDHGB 9.0HCT 26.9 %Contrast Medium: Bubble Study.Height: 60 inches Weight: 77.56 kg (171 lbs) BSA: 1.75 m^2 BMI: 33.4 kg/m^2HR: 72 bpm BP: 147/68 mmHg Summary Estimated LVEF by qualitative assessment is normal (>60%) . IV saline contrast injection is probably negative for a PFO (patent foramen ovale) at rest and post Valsalva . IV saline contrast with delayed imaging is suggestive of intra pulmonic shunting. The degree of intrapulmonary shunting appears to be slight . Signature Findings Left Ventricle The left ventricle is chamber size (by PSLAX dimension) is normal (female - LVIDd 3.8-5.2cm) . Normal LV wall thickness. All of the LV segments contract normally . Global LV systolic function normal . Estimated LVEF by qualitative assessment is normal (>60%) . Grade 2 diastolic dysfunction (moderately increased LA pressure). Left Atrium LAsize is moderately enlarged (42-48 ml/m2) . Right Ventricle The right ventricular chamber size and systolic function are within normal limits. Right Atrium RA cavity size is normal . Atrial Septum IV saline contrast injection is probably negative for a PFO (patent foramen ovale) at rest and post Valsalva. IV saline contrast with delayed imaging is suggestive of intra pulmonic shunting. The degree of intrapulmonary shunting appears faina slight . Aortic Valve Mild AoV cusp thickening. AoV cusp mobility is normal . Mitral Valve Mild MV leaflet thickening. Mild mitral annular calcification. Trace mitral regurgitation. Tricuspid Valve Ipzx-mh-qghdcidg tricuspid regurgitation. Estimated peak systolic PA pressure is 45-50 mmHg (mild pulmonary hypertension) . Pulmonic Valve Normal PV structure and function. Aorta Aortic root size (SInus of Valsalva diameter) is normal . Pericardium No significant pericardialeffusion is visualized. IVC/SVC/PA/PV/Pleural The estimated RA pressure [...] MV Peak A-Wave: 1.04 m/s E/A Ratio: 1.26 Peak Gradient: 6.8 mmHg Deceleration Time: 207.3 msec MV Nick. Peak: Tissue Doppler E' Septal Velocity: 0.08 m/s E/E': 16.56 E' Lateral Velocity: 0.08 m/s Aortic Valve Peak Velocity: 1.91 m/s Mean Velocity: 1.43 m/s Peak Gradient: 14.55 mmHg Mean Gradient: 8.92 mmHg AV Area (continuity): 2.24 cm^2 AV VTI: 47.38 cm AV DVI: 0.75 LVOT Peak Velocity: 1.3 m/s Peak Gradient: 6.71 mmHg Mean Velocity: 0.95 m/s Mean Gradient: 4.01 mmHg LVOT Diameter: 1.95 cm LVOT VTI: 35.57 cm LVOT Area: 2.99 cm^2 LVOT SV:106.18 ml LVOT CO: 7.64 l/min LVOT CI: 4.37 l/min/m^2 Tricuspid Valve TR Velocity: 3.23 m/s TR Gradient: 41.65 mmHgKingsburg Medical CenterECG 12 lead 2019-11-27 17:25:37Interface, External Ris In - 11/27/2019 5:25 PM CDTVentricular Rate 72 BPMAtrial Rate 72 BPMP-R Interval 148 msQRS Duration 80 msQ-T Interval 422 msQTC Calculation(Bazett) 462 msP [place] 65 degreesR [place] 67 degreesT [place] 50 degreesNormal sinus rhythmNormal ECGConfirmed by MD Hua Roberto ([id number]) on 11/27/2019 5:25:36 [facility] CenterTreadmill tolerance(Non-Nuclear Treadmill)2019-11-27 16:29:57Interface, External Ris In - 11/27/2019 4:30 PM CDTProtocol Name REGADENOSON Time In Exercise Phase00:01:00 Max. Systolic BP 138 mmHgMax Diastolic BP 62 mmHgMax Heart Rate 86 BPMMax Predicted Heart Rate 151 BPMReason For Termination Predetermined end point Reason for Test pre-transplant evaluation for liver transplant Target HR Formula (220 - Age)*100% Arrhythmias none Resting ECG Normal sinus rhythm ST Changes No Significant Changes Overall Impression Indeterminate due to pharmacological stress Nuclear data reported separatelyChest Pain none HR Response To Exercise BP Response To Exercise atorvastatin, furosemide, lisinoprilConfirmed by fellow Randall Ontiveros ([id number]) on 11/27/2019 12:20:58 PMConfirmed by Gilles AGUILAR BASANT ([id number]) on 11/27/2019 4:29:31 [facility] CenterMYOCARD IMAGING, MULTI, PHARM, [id number] 15:53:00FINAL REPORT PROCEDURE: Rest/Stress MYOCARDIAL PERFUSION SPECT with regadenoson\\XA9\\ CPT CODE: 65843 INDICATION: Preoperative evaluation for liver transplant HISTORY: Cardiac risk factors: Diabetes, hypertension, family history. Other cardiovascular history: No reported CAD. PROTOCOL: 10.8 mCi of Tc-99m sestamibi was injected iv at rest, and SPECT (tomographic) images were obtained. Also, 31.3 mCi of Tc-99m sestamibi was injected iv at expectedpeak pharmacologic effect, and gated SPECT images were obtained. PRELIMINARY STRESS TEST DATA FROM NONINVASIVE CARDIOLOGY: Pharmacologic stress was by 10-second iv infusion of 0.4 mg of regadenoson. Radiotracer was injected 30 seconds after start of stress. Heart rate was 73 beats/min at rest and 86 beats/min (56 % of MPHR) at tracer injection. BP was 147/65 mmHg at rest and 138/62 mmHg at tracer injection. Stress was stopped for predetermined endpoint. The patient experienced nausea and weakness;treatment was not required. Preliminary ECG evaluation revealed sinus rhythm at rest and no ischemicchanges with stress. (Final ECG interpretation and other stress and monitoring data are reported separately by Cardiology.) IMAGING FINDINGS: Study quality is good. Images obtained after rest and stress injections show normal LV activity. Patient motion artifact is noted. LV and RV volumes appear normal. Gated images obtained at rest after stress show normal LV wall motion and thickening. QGSLVEF is >70%. IMPRESSION: 1. Normal study. 2. Appropriate pharmacologic stress. 3. Normal myocardial perfusion. 4. Normal resting LV function. 5. Normal extracardiac tracer distribution. 6. No prior study. Signed: José Miguel Ramirez MDReport Verified Date/Time: 11/27/2019 15:53:06 Reading Location: [place] [id number] Reading Room NM myocardial perfusion SPECT, [id number] 15:53:00Interface, External Ris In - 11/27/2019 3:55 PM CDTFINAL REPORT PROCEDURE: Rest/Stress MYOCARDIAL PERFUSION SPECT with regadenoson\\XA9\\ CPT CODE: 39374 INDICATION: Preoperative evaluation for liver transplant HISTORY: Cardiac risk factors: Diabetes, hypertension, family history. Other cardiovascular history: No reported CAD. PROTOCOL: 10.8 mCi of Tc-99m sestamibi was injected iv at rest, and SPECT (tomographic) images were obtained. Also, 31.3mCi of Tc-99m sestamibi was injected iv at expected peak pharmacologic effect, and gated SPECT images were obtained. PRELIMINARY STRESS TEST DATA FROM NONINVASIVE CARDIOLOGY: Pharmacologic stress wasby 10-second iv infusion of 0.4 mg of regadenoson. Radiotracer was injected 30 seconds after start of stress. Heart rate was 73 beats/min at rest and 86 beats/min (56 % of MPHR) at tracer injection. BPwas 147/65 mmHg at rest and 138/62 mmHg at tracer injection. Stress was stopped for predetermined endpoint. The patient experienced nausea and weakness; treatment was not required. Preliminary ECG evaluation revealed sinus rhythm at rest and no ischemic changes with stress. (Final ECG interpretation and other stress and monitoring data are reported separately by Cardiology.) IMAGING FINDINGS:Study quality is good. Images obtained after rest and stress injections show normal LV activity. Patient motion artifact is noted. LV and RV volumes appear normal. Gated images obtained at rest after stress show normal LV wall motion and thickening. QGS LVEF is >70%. IMPRESSION: 1. Normal study. 2. Appropriate pharmacologic stress. 3. Normal myocardial perfusion. 4. Normal resting LV function. 5. Normal extracardiac tracer distribution. 6. No prior study. Signed: José Miguel Ramirez MDReport Verified Date/Time: 11/27/2019 15:53:06 Reading Location: [address] Med Reading Room [facility] Hepatitis A antibody, [id number] 13:28:00 Test Item Value Reference Range Interpretation Comments Hep A IgM (test code = Indeterminate Nonreactive A 63620-3) JOHN (test code = JOHN) Lung Splitter ID - EDMOND COperator ID - FRANKIE FOperator ID - FRANKIE FOperator ID - CAROLINA F Lab Interpretation Abnormal (test code = 88964-0) [facility] CenterHEPAT[facility]IS A ANTIBODY, [id number] 13:28:00 Test Item Value Reference Range Interpretation Comments HEPATITIS A IGM ANTIBODY Indeterminate Nonreactive A (BEAKER) (test code = 498) Lung Splitter ID - EDMOND Larsenrator ID - FRANKIE FOperator ID - FRANKIE FOperator ID - FRANKIE FCryptococcal [id number] 13:09:00 Test Item Value Reference Range Interpretation Comments Cryptococcal Antigen, Serum Negative Negative, Interference (test code = 69142-7) Lab Interpretation (test code Normal = 25103-9) [facility] CenterCRYPTOCOCCAL [id number] 13:09:00 Test Item Value Reference Range Interpretation Comments CRYPTOCOCCAL ANTIGEN, SERUM Negative Negative, Interference (BEAKER) (test code = 1828) Carotid doppler [id number] 11:08:24Ejection [facility] ECHO HEARTLAB MKCKESSON CPACSRight Impression1. There is <50% diameter reduction (approximately 28% by 2-D measurement)in the internal carotid artery with a peak velocity of 92/20 cm/sec andheterogeneous plaque.2. There is non-occluding plaque in the external carotid artery.3.The common carotid artery is within normal limits.4. The vertebral artery flow is antegrade and normal.5. The subclavian artery is within normal limits where visualized.Left Impression1. There is <50% diameter reduction (approximately 23% by 2-D measurement)in the internal carotid artery with a peak velocity of 67/13 cm/sec andheterogeneous plaque.2. The external carotid artery is within normal limits.3. There is non- occluding plaque in the common carotid artery.4. The vertebral artery flow is antegrade and normal.5. The subclavian artery is within normal limits where visualized. Conclusions Summary Carotid duplex scanning and color flow imaging were performed bilaterally. The arteries were adequately visualized. The bilateral internal carotid arteries had <50% hemodynamically insignificant stenosis (approximately 28% by 2-D measurement on the right, approximately 23% by 2-D measurementon the left) with heterogeneous plaque. The vertebral artery flow was antegrade and normal bilaterally. The subclavian arteries were patent with normal flow bilaterally where visualized. Signature --- Velocities are measured in cm/s ; Diameters are measured in cm Carotid Right Measure ments+ +----+----+-----+ + + +!Location !PSV !EDV !Angle!%Stenosis 2D!%Stenosis Doppler!Tortuosity !+ +----+----+-----+ + + +!Prox CCA !121 !16.8!60 ! ! ! !+ +----+----+-----+ + + +!Di st CCA !100 !19.6!60 ! ! ! !+ +----+----+-----+ -+ + +!Prox ICA !92.5!19.6!60 !27.7% !<50% ! !+ +----+----+-----+ + + +!Di st ICA !118 !29.4!60 ! ! ! !+ +----+----+-----+------- -----+ + +!Prox ECA !103 !13.3!60 ! ! ! !+ +----+----+-----+ + + +!Ve rtebral !79.9!17.5!60 ! ! ! !+ +----+----+-----+------ ------+ + +!Prox Subclavian!196 ! !60 ! ! ! !+ +----+----+-----+ + + + - There is antegrade vertebral flow noted on the right side. - Additional Measurements:ICAPSV/CCAPSV 1.18.ICAEDV/CCAEDV 1.75. Carotid Left Measurements+ +----+----+-----+ + ----+ +!Location !PSV !EDV !Angle!%Stenosis 2D!%Stenosis Doppler!Tortuosity !+------- --------+----+----+-----+ + + +!Prox CCA !127 !19.9!60 ! ! ! !+ +----+----+-----+ + -----+ +!Dist CCA !90.9!19.2!60 ! ! ! !+------ ---------+----+----+-----+ + + +!Prox ICA !67.5!12.6!60!22.7% !<50% ! !+ +----+----+-----+ +-------- ---------+ +!Dist ICA !102 !27.4!60 ! ! ! !+-- +----+----+-----+ + + +!Prox ECA !105 !8.78!60 ! ! ! !+ +----+----+-----+ +------- + +!Vertebral !67.5!12.1!60 ! ! ! !+- +----+----+-----+ + + +!Prox Subclavian!198 ! !60 ! ! ! !+ +----+----+-----+ + + + - There is antegrade vertebral flow noted on the left side. - Additional Measurements:ICAPSV/CCAPSV 1.12.ICAEDV/CCAEDV 1.38. Interface, External Ris In - 11/27/2019 11:08 AM CDTPV LAB - Carotid Duplex Study Demographics Patient Name JORDYN CUEVAS Date of Study 11/27/2019 VIVIAN Age 69 Visit Number [id number] Gender Female Accession Number [id number] Date of 1950 Referring Leonardaubreyimmanuel Manisha Room Number [facility] OPT Physician [place] Stem Sawyer Maxwell Garcia Interpreting Leila Hernandez MD RVS Physician ProcedureType of Study: Cerebral: Carotid, CAROTID DOPPLER, BILATERAL. Indications for Study:Pre transplant evaluation for liver.Patient Status:Routine.Study Location:Vascular Lab.Technical Quality:Adequate visualization.Risk FactorsHistory of Disease+ + + +!Diagnosis !Date !Comments !+ + + +!History/Risk Factors: !11/27/2019!Liver cirrhosis, DM, Portal HTN !+ + + +ImpressionsRight Impression1. There is<50% diameter reduction (approximately 28% by 2-D measurement)in the internal carotid artery witha peak velocity of 92/20 cm/sec andheterogeneous plaque.2. There is non-occluding plaque in the external carotid artery.3. The common carotid artery is within normal limits.4. The vertebral artery flowis antegrade and normal.5. The subclavian artery is within normal limits where visualized.Left Impression1. There is <50% diameter reduction (approximately 23% by 2-D measurement)in the internal carotid artery with a peak velocity of 67/13 cm/sec andheterogeneous plaque.2. The external carotid artery is within normal limits.3. There is non-occluding plaque in the common carotid artery.4. The vertebral artery flow is antegrade and normal.5. The subclavian artery is within normal limits where visualized. Conclusions Summary Carotid duplex scanning and color flow imaging were performed bilaterally. The arteries were adequately visualized. The bilateral internal carotid arteries had <50% hemodynamically insignificant stenosis (approximately 28% by 2-D measurement on the right, approximately 23% by 2-D measurement on the left) with heterogeneous plaque. The vertebral artery flow was antegradeand normal bilaterally. The subclavian arteries were patent with normal flow bilaterally where visualized. Signature Velocities are measured in cm/s ; Diameters are measured in cmCarotid Right Measurements+ +----+----+-----+ + +---- -------+!Location !PSV !EDV !Angle!%Stenosis 2D!%Stenosis Doppler!Tortuosity !+ +----+--- -+-----+ + + +!Prox CCA !121 !16.8!60 ! ! ! !+ +----+----+-----+ + + +!Dist CCA !100 !19.6!60 ! ! ! !+ +----+-- --+-----+ + + +!Prox ICA !92.5!19.6!60 !27.7% !<50% ! !+ +----+----+-----+ + +------- ----+!Dist ICA !118 !29.4!60 ! ! ! !+ +--- -+----+-----+ + + +!Prox ECA !103 !13.3!60 !! ! !+ +----+----+-----+ + +------ -----+!Vertebral !79.9!17.5!60 ! ! ! !+ +-- --+----+-----+ + + +!Prox Subclavian!196 ! !60 ! ! ! !+ +----+----+-----+ + + + - There is antegrade vertebral flow noted on the right side. - Additional Measurements:ICAPSV/CCAPSV 1.18.ICAEDV/CCAEDV 1.75.Carotid Left Measurements+ +----+----+-----+--------- ---+ + +!Location !PSV !EDV !Angle!%Stenosis 2D!%Stenosis Doppler!Tortuosity !+ +----+----+-----+ + + +!Pr ox CCA!127 !19.9!60 ! ! ! !+ +----+----+-----+-------- ----+ + +!Dist CCA !90.9!19.2!60 ! ! ! !+ +----+----+-----+ + + +!Pr ox ICA !67.5!12.6!60 !22.7% !<50% ! !+ +----+----+-----+---- --------+ + +!Dist ICA !102 !27.4!60 ! ! ! !+ +----+----+-----+ + + +!Pr ox ECA !105 !8.78!60 ! ! ! !+ +----+----+-----+--- ---------+ + +!Vertebral !67.5!12.1!60 ! ! ! !+ +----+----+-----+ + + +!Pr ox Subclavian!198 ! !60 ! ! ! !+ +----+----+-----+ + + + - There is antegrade vertebral flow noted on the left side. - Additional Measurements:ICAPSV/CCAPSV 1.12.ICAEDV/CCAEDV 1.38.[facility] Varicella zoster antibody, [id number] 11:04:00 Test Item Value Reference Range Interpretation Comments Varicella IgG (test 4.6 code = 81986-2) JOHN (test code = JOHN) VARICELLA ZOSTER RESULT INTERPRETATIONS: <=0.8 Al Nonreactive: Presumed non-immune to VZV 0.9-1.0 Al Equivocal >=1.1 Al Reactive: Presumed immune to VZV [facility] CenterCytomegalovirus antibody, [id number] 11:04:00 Test Item Value Reference Range Interpretation Comments CYTOMEGALOVIRUS, IGG Positive Negative, A (test code = 3429) Equivocal JOHN (test code = JOHN) CMV IgG Result Interpretation: </= 0.8 Al Negative 0.9-1.0 Al Equivocal >/=1.1 Al Positive Lab Interpretation (test Abnormal code = 30274-6) [facility] CenterRubella antibody, [id number] 11:04:00 Test Item Value Reference Range Interpretation Comments Rubella IgG Quant (test >250.0 <8.0 IU/mL H code = 8014-3) JOHN (test code = JOHN) Rubella IgG Result Interpretation: </= 7.0 IU/mL Negative - Presumed non-immune 8.0 - 9.9 IU/mL Equivocal >= 10.0 IU/mL Positive - Presumed immune Lab Interpretation (test Abnormal code = 13170-8) [facility] CenterEBV-VCA antibody, [id number] 11:04:00 Test Item Value Reference Range Interpretation Comments DAMON MEYERS VIRAL Positive Negative, A CAPSID ANTIGEN IGG (test Equivocal code = 3415) JOHN (test code = JOHN) Damon Meyers Viral Capsid Antigen IgG Result Interpretation: </= 0.8 Al Negative 0.9-1.0 Al Equivocal >/= 1.1 Al Positive Lab Interpretation (test Abnormal code = 30726-8) [facility] CenterEBV-VCA antibody, [id number] 11:04:00 Test Item Value Reference Range Interpretation Comments DAMON MEYERS VIRAL Negative Negative, CAPSID ANTIGEN IGM (test Equivocal code = 3418) JOHN (test code = JOHN) Damon Meyers Viral Capsid Antigen IgM Result Interpretation: </= 0.8 Al Negative 0.9-1.0 Al Equivocal >/= 1.1 Al Positive Lab Interpretation (test Normal code = 63818-5) [facility] CenterCytomegalovirus antibody, [id number] 11:04:00 Test Item Value Reference Range Interpretation Comments CMV IGM (test code = Negative Negative, 3437) Equivocal JOHN (test code = JOHN) CMV IgM Result Interpretation: </= 0.8 Al Negative 0.9-1.0 Al Equivocal >/= 1.1 Al Positive Lab Interpretation (test Normal code = 33110-2) [facility] CenterCYTOMEGALOVIRUS ANTIBODY, [id number] 11:04:00 Test Item Value Reference Range Interpretation Comments CYTOMEGALOVIRUS, IGG (BEAKER) Positive Negative, Equivocal A (test code = 3429) CMV IgG Result Interpretation: </= 0.8 Al Negative 0.9-1.0 Al Equivocal >/=1.1 Al PositiveCYTOMEGALOVIRUS ANTIBODY, [id number] 11:04:00 Test Item Value Reference Range Interpretation Comments CYTOMEGALOVIRUS IGM ANTIBODY Negative Negative, Equivocal (BEAKER) (test code = 3437) CMV IgM Result Interpretation: </= 0.8 Al Negative 0.9-1.0 Al Equivocal >/= 1.1 Al PositiveEBV ANTIBODY, [id number] 11:04:00 Test Item Value Reference Range Interpretation Comments DAMON MEYERS VIRAL CAPSID Positive Negative, Equivocal A ANTIGEN IGG (BEAKER) (test code = 3415) Damon Meyers Viral Capsid Antigen IgG Result Interpretation: </= 0.8 Al Negative 0.9-1.0 Al Equivocal >/= 1.1 Al PositiveEBV ANTIBODY, IGM 2019-11-27 11:04:00 Test Item Value Reference Range Interpretation Comments DAMON MEYERS VIRAL CAPSID Negative Negative, Equivocal ANTIGEN IGM (BEAKER) (test code = 3418) Damon Meyers Viral Capsid Antigen IgM Result Interpretation: </= 0.8 Al Negative 0.9-1.0 Al Equivocal >/= 1.1 Al PositiveRUBELLA ANTIBODY, IGG 2019-11-27 11:04:00 Test Item Value Reference Range Interpretation Comments RUBELLA IGG QUANTITATION (BEAKER) > IU/mL <8.0 H (test code = 572) Rubella IgG Result Interpretation: </= 7.0 IU/mL Negative - Presumed non- immune 8.0 - 9.9 IU/mL Equivocal >= 10.0 IU/mL Positive - Presumed immune VARICELLA ZOSTER ANTIBODY, [id number] 11:04:00 Test Item Value Reference Range Interpretation Comments VARICELLA ZOSTER IGG (AL) (BEAKER) 4.6 (test code = 3197) VARICELLA ZOSTER RESULT INTERPRETATIONS: <=0.8 Al Nonreactive: Presumed non-immune to VZV 0.9-1.0 Al Equivocal >=1.1 Al Reactive: Presumed immune to [id number] 10:59:00 Test Item Value Reference Range Interpretation Comments RPR (test code = 39365-9) Nonreactive Nonreactive Lab Interpretation (test code = Normal 15218-9) [facility] CenterRPR2020-05-27 10:59:00 Test Item Value Reference Range Interpretation Comments RPR SCREEN (BEAKER) (test code = Nonreactive Nonreactive 420) Hemoglobin [id number] 08:29:00 Test Item Value Reference Range Interpretation Comments Hemoglobin A1C (test code = 4548-4) 6.0 % 4.3-6.1 Lab Interpretation (test code = Normal 66982-8) [facility] CenterHEMOGLOBIN [id number] 08:29:00 Test Item Value Reference Range Interpretation Comments HEMOGLOBIN A1C (BEAKER) (test code = 6.0 % 4.3-6.1 368) [id number] 08:23:00 Test Item Value Reference Range Interpretation Comments T4, Total (test code = 5.8 ug/dL 4.9-11.7 3026-2) JOHN (test code = JOHN) Lung Splitter ID - EDMOND C Lab Interpretation (test Normal code = 24449-6) [facility] CenterT42020-05-27 08:23:00 Test Item Value Reference Range Interpretation Comments T4 TOTAL (BEAKER) (test code = 895) 5.8 ug/dL 4.9-11.7 Lung Splitter ID - EDMOND [id number] 08:22:00 Test Item Value Reference Range Interpretation Comments Ferritin (test code = 383.27 ng/mL 5-275 H 2276-4) JOHN (test code = JOHN) Lung Splitter ID - EDMOND C Lab Interpretation (test Abnormal code = 03466-0) [facility] CenterFERRITIN2020-05-27 08:22:00 Test Item Value Reference Range Interpretation Comments FERRITIN (BEAKER) (test code = 383.27 ng/mL 5.00-275.00 H 361) Lung Splitter ID - EDMOND CBlood typing, [id number] 08:13:00 Test Item Value Reference Range Interpretation Comments ABO/RH AUTOMATED (BEAKER) (test O POSITIVE code = 2260) [facility] CenterHepatitis A antibody, IgG ([facility] ONLY)2019-11-27 08:11:00 Test Item Value Reference Range Interpretation Comments Hep A IgG (test code = Reactive Nonreactive A 53654-8) OJHN (test code = JOHN) Lung Splitter ID - EDMOND C Lab Interpretation (test Abnormal code = 71432-5) [facility] A ANTIBODY, [id number] 08:11:00 Test Item Value Reference Range Interpretation Comments HEPATITIS A IGG ANTIBODY (BEAKER) Reactive Nonreactive A (test code = 2797) Lung Splitter ID - EDMOND CUrinalysis w/[id number] 08:04:00 Test Item Value Reference Range Interpretation Comments Color, UA (test code = Yellow 5778-6) Clarity, UA (test code = Hazy 5767-9) Specific [place], UA 1.017 1.001-1.035 (test code = 5811-5) pH, UA (test code = 6.5 5.0-8.0 5803-2) Protein, UA (test code = Negative Negative 04525-2) Glucose, UA (test code = Negative Negative 365) Ketones, UA (test code = Negative Negative 2514-8) Bilirubin, UA (test code Negative Negative = 40993-3) Blood, UA (test code = Trace Negative A 03772-7) Nitrite, UA (test code = Negative Negative 5802-4) Leukocytes, UA (test code Negative Negative = 5799-2) Urobilinogen, UA (test 2.0 mg/dL 0.2-1 H code = 13082-9) RBC, UA (test code = 1 /HPF 66995-4) WBC, UA (test code = 1 /HPF 5821-4) Bacteria, UA (test code = Occasional 40427-6) Squam Epithel, UA (test 7 /HPF code = 48984-7) Specimen Source (test code = 2795) JOHN (test code = JOHN) Lung Splitter ID - [auto]Lung Splitter ID - tech Lab Interpretation (test Abnormal code = 94538-2) [facility] CenterURINALYSIS W/ [id number] 08:04:00 Test Item Value Reference Range Interpretation Comments COLOR (BEAKER) (test code = 470) Yellow CLARITY (BEAKER) (test code = 469) Hazy SPECIFIC GRAVITY UA (BEAKER) (test 1.017 1.001-1.035 code = 468) PH UA (BEAKER) (test code = 467) 6.5 5.0-8.0 PROTEIN UA (BEAKER) (test code = Negative Negative 464) GLUCOSE UA (BEAKER) (test code = Negative Negative 365) KETONES UA (BEAKER) (test code = Negative Negative 371) BILIRUBIN UA (BEAKER) (test code = Negative Negative 462) BLOOD UA (BEAKER) (test code = Trace Negative A 461) NITRITE UA (BEAKER) (test code = Negative Negative 465) LEUKOCYTE ESTERASE UA (BEAKER) Negative Negative (test code = 466) UROBILINOGEN UA (BEAKER) (test 2.0 mg/dL 0.2-1.0 H code = 463) RBC UA (BEAKER) (test code = 519) 1 /HPF WBC UA (BEAKER) (test code = 520) 1 /HPF BACTERIA (BEAKER) (test code = Occasional 517) SQUAMOUS EPITHELIAL (BEAKER) (test 7 /HPF code = 516) SOURCE(BEAKER) (test code = 2795) Lung Splitter ID - [auto]Lung Splitter ID - techBlood gas, [id number] 07:59:00 Test Item Value Reference Range Interpretation Comments pH, Arterial (test code = 2744-1) 7.43 7.35-7.45 pCO2, Arterial (test code = 33 35- 45 mmHg L 2019-01) pO2, Arterial (test code = 101 80- 90 mmHg H 7) O2 Sat, Arterial (test code = 97.8 % 96-97 H 6) HCO3, Arterial (test code = 21 mmol/L 21-29 1959-4) Base Excess, Arterial (test code -2.5 mmol/L -2-3 L = 1925-7) Patient Temperature (test code = 37.0 C 8310-5) FIO2 (test code = 1819) 21 % Lab Interpretation (test code = Abnormal 87287-8) [facility] CenterBLOOD GAS, [id number] 07:59:00 Test Item Value Reference Range Interpretation Comments PH ARTERIAL (BEAKER) (test code = 7.43 7.35-7.45 383) PCO2 ARTERIAL (BEAKER) (test code 33 mmHg 35-45 L = 384) PO2 ARTERIAL (BEAKER) (test code 101 mmHg 80-90 H = 385) O2 SATURATION ARTERIAL (BEAKER) 97.8 % 96.0-97.0 H (test code = 386) HCO3 ARTERIAL (BEAKER) (test code 21 mmol/L 21-29 = 388) BASE EXCESS ARTERIAL (BEAKER) -2.5 mmol/L -2.0-3.0 L (test code = 387) PATIENT TEMPERATURE (BEAKER) 37.0 C (test code = 1818) FIO2 (BEAKER) (test code = 1819) 21.0 % Carcinoembryonic Antigen (CEA)2019-11-27 07:55:00 Test Item Value Reference Range Interpretation Comments CEA, SERUM (test code = 9.1 ng/mL 0-5 H 9-6) JOHN (test code = JOHN) Lung Splitter ID - EDMOND C Lab Interpretation (test Abnormal code = 03491-7) [facility] CenterHepatitis B core antibody, [id number] 07:55:00 Test Item Value Reference Range Interpretation Comments Hep B C IgM (test code = Nonreactive Nonreactive 62006-6) JOHN (test code = JOHN) Lung Splitter ID - EDMOND C Lab Interpretation (test Normal code = 69112-0) [facility] CenterCARCINOEMBRYONIC ANTIGEN (CEA)2019-11-27 07:55:00 Test Item Value Reference Range Interpretation Comments CARCINOEMBRYONIC ANTIGEN (BEAKER) 9.1 ng/mL 0.0-5.0 H (test code = 685) Lung Splitter ID - EDMOND CHEPATITIS B CORE ANTIBODY, [id number] 07:55:00 Test Item Value Reference Range Interpretation Comments HEPATITIS B CORE IGM ANTIBODY Nonreactive Nonreactive (BEAKER) (test code = 645) Lung Splitter ID - EDMOND [id number] 07:51:00 Test Item Value Reference Range Interpretation Comments TSH (test code = 2.089 0.350- 4.940 uIU/mL 76316-6) JOHN (test code = JOHN) Lung Splitter [place] - [facility] C Lab Interpretation (test Normal code = 49015-6) [facility] CenterH[facility] C [id number] 07:51:00 Test Item Value Reference Range Interpretation Comments Hepatitis C Ab (test code Nonreactive Nonreactive = 77415-1) JOHN (test code = JOHN) Lung Splitter ID - [facility] C Lab Interpretation (test Normal code = 76852-5) [facility] CenterHIV-1 Antigen with HIV-1/2 [id number] 07:51:00 Test Item Value Reference Range Interpretation Comments HIV-1 Antigen with HIV Nonreactive Nonreactive 1&2 Antibody (test code = 27316-8) JOHN (test code = JOHN) Lung Splitter [facility] C Lab Interpretation (test Normal code = 99828-5) [facility] CenterTSH2020-05-27 07:51:00 Test Item Value Reference Range Interpretation Comments THYROID STIMULATING HORMONE 2.089 uIU/mL 0.350-4.940 (BEAKER) (test code = 772) Lung Splitter ID - EDMOND CHEPATITIS C [id number] 07:51:00 Test Item Value Reference Range Interpretation Comments HEPATITIS C ANTIBODY (BEAKER) Nonreactive Nonreactive (test code = 367) Lung Splitter ID - [facility] CHIV-1 ANTIGEN WITH HIV-1/2 [id number] 07:51:00 Test Item Value Reference Range Interpretation Comments HIV-1 ANTIGEN WITH HIV 1\\T\\2 Nonreactive Nonreactive ANTIBODY (2) (BEAKER) (test code = 2586) Lung Splitter ID - [facility] CVitamin D, 75-[id number] 07:50:00 Test Item Value Reference Range Interpretation Comments Vitamin D 25-Hydroxy 21.1 ng/mL 6.6-49.9 (test code = 2764) JOHN (test code = JOHN) Effective 04/12/2017: Reference Range ChangeNew: 6.6-49.9 ng/mL Previous: 13.0-47.8 ng/mL Recommended Vitamin D Target Range: 30.0-40.0 ng/mLOperator ID - JUL C Lab Interpretation (test Normal code = 25811-7) [facility], [id number] 07:50:00 Test Item Value Reference Range Interpretation Comments VITAMIN D 25-OH (BEAKER) (test 21.1 ng/mL 6.6-49.9 code = 2764) Effective 04/12/2017: Reference Range ChangeNew: 6.6-49.9 ng/mL Previous: 13.0-47.8 ng/mLRecommended Vitamin D Target Range: 30.0-40.0 ng/mLOperator ID - JUL CComprehensive metabolic [id number] 07:45:00 Test Item Value Reference Range Interpretation Comments Protein, Total (test 5.6 6.0- 8.3 gm/dL L code = 2885-2) Albumin (test code = 2.7 g/dL 3.5-5 L 28997-8) Alkaline Phosphatase 319 U/L 40-150 H (test code = 6768-6) Total Bilirubin (test 2.6 mg/dL 0.2-1.2 H code = 1975-2) Sodium (test code = 140 meq/L 449-657 5427-2) Potassium (test code 5.0 meq/L 3.5-5.1 = 2823-3) Chloride (test code = 113 meq/L 98-107 H 2075-0) CO2 (test code = 24 meq/L 22-29 2028-9) BUN (test code = 23 mg/dL 7-21 H 3094-0) Creatinine (test code 1.73 mg/dL 0.57-1.25 H = 2160-0) Glucose (test code = 99 mg/dL 70-105 2345-7) Calcium (test code = 8.6 mg/dL 8.4-10.2 71620-3) AST (test code = 60 U/L 5-34 H 1920-8) ALT (test code = 46 U/L 6-55 1742-6) EGFR (test code = 29 mL/min/1.73 [place] [address]-8) NOT ACCURATE CREATININE CLEARANCE IN PREDICTING GLOMERULAR FILTRATION RATE . ESTIMATED GFR I S NOT APPLICABLE FOR DIALYSIS PATIENTS. JOHN (test code = JOHN) Lung Splitter ID - JUL CSpecimen slightly icteric Lab Interpretation Abnormal (test code = 24973-0) [facility] CenterCOMPREHENSIVE METABOLIC [id number] 07:45:00 Test Item Value Reference Range Interpretation Comments TOTAL PROTEIN 5.6 gm/dL 6.0-8.3 L (BEAKER) (test code = 770) ALBUMIN (BEAKER) 2.7 g/dL 3.5-5.0 L (test code = 1145) ALKALINE PHOSPHATASE 319 U/L 40-150 H (BEAKER) (test code = 346) BILIRUBIN TOTAL 2.6 mg/dL 0.2-1.2 H (BEAKER) (test code = 377) SODIUM (BEAKER) (test 140 meq/L 136-145 code = 381) POTASSIUM (BEAKER) 5.0 meq/L 3.5-5.1 (test code = 379) CHLORIDE (BEAKER) 113 meq/L 98-107 H (test code = 382) CO2 (BEAKER) (test 24 meq/L 22-29 code = 355) BLOOD UREA NITROGEN 23 mg/dL 7-21 H (BEAKER) (test code = 354) CREATININE (BEAKER) 1.73 mg/dL 0.57-1.25 H (test code = 358) GLUCOSE RANDOM 99 mg/dL 70-105 (BEAKER) (test code = 652) CALCIUM (BEAKER) 8.6 mg/dL 8.4-10.2 (test code = 697) AST (SGOT) (BEAKER) 60 U/L 5-34 H (test code = 353) ALT (SGPT) (BEAKER) 46 U/L 6-55 (test code = 347) EGFR (BEAKER) (test 29 mL/min/1.73 ESTIMA LESIA GFR IS code = 1092) sq m NOT ACCURATE CREATININE CLEARANCE IN PREDICTING GLOMERULAR FILTRATION RATE . ESTIMATED GFR I S NOT APPLICABLE FOR DIALYSIS PATIEN TS. Lung Splitter ID - JUL CSpecimen slightly [id number] 07:39:00 Test Item Value Reference Range Interpretation Comments Transferrin (test code = 124 mg/dL 174-382 L 3034-6) JOHN (test code = JOHN) Lung Splitter ID - JUL CSpecimen slightly icteric Lab Interpretation (test Abnormal code = 46663-3) [facility] CenterIron, TIBC, % sat. (without ferritin)2019-11-27 07:39:00 Test Item Value Reference Range Interpretation Comments Iron (test code = 2498-4) 132.0 ug/dL 40-160 TIBC (test code = 2500-7) 156 ug/dL 250-450 L Iron % Saturation (test 85 % 20-55 H code = 2502-3) JOHN (test code = JOHN) Lung Splitter ID - EDMOND C Lab Interpretation (test Abnormal code = 96841-4) [facility] CenterIRON, TIBC, % SAT. (WITHOUT FERRITIN)2019-11-27 07:39:00 Test Item Value Reference Range Interpretation Comments IRON (BEAKER) (test code = 547) 132.0 ug/dL 40.0-160.0 TOTAL IRON BINDING CAPACITY 156 ug/dL 250-450 L (BEAKER) (test code = 769) IRON % SATURATION (2) (BEAKER) 85 % 20-55 H (test code = 2590) Lung Splitter ID - EDMOND [id number] 07:39:00 Test Item Value Reference Range Interpretation Comments TRANSFERRIN (BEAKER) (test code = 124 mg/dL 174-382 L 541) Lung Splitter ID - EDMOND Rigobertodaraimegail slightly ictericLipid [id number] 07:38:00 Test Item Value Reference Range Interpretation Comments Triglycerides (test 174 mg/dL code = 2571-8) Cholesterol (test code 237 mg/dL = 2093-3) HDL (test code = 39 mg/dL 2085-9) LDL Calculated (test 163 mg/dL code = 26381-1) JOHN (test code = JOHN) Triglyceride Reference Range: Low Risk <150 Borderline 150-199 High Risk 200-499 Very High Risk >=500 Cholesterol Reference Range: Low Risk <200 Borderline 200-239 High Risk >240 HDL Cholesterol Reference Range: Low Risk >=60 High Risk <40 LDL Cholesterol Reference Range: Optimal <100 Near Optimal 100-129 Borderline 130-159 High 160-189 Very High >=190 Lung Splitter ID - EDMOND Rigobertoecimegail slightly icteric [facility] CenterBilirubin, [id number] 07:38:00 Test Item Value Reference Range Interpretation Comments Bilirubin, Direct (test 1.2 mg/dL 0.1-0.5 H code = 1968-7) JOHN (test code = JOHN) Lung Splitter ID - EDMOND C Lab Interpretation (test Abnormal code = 45041-0) [facility] CenterGamma Glutamyl Transferase (GGT)2019-11-27 07:38:00 Test Item Value Reference Range Interpretation Comments GGT (test code = 2324-2) 204 U/L 9-64 H JOHN (test code = JOHN) Lung Splitter ID - EDMOND CSpecimen slightly icteric Lab Interpretation (test Abnormal code = 33094-8) [facility] CenterMagnesium2020-05-27 07:38:00 Test Item Value Reference Range Interpretation Comments Magnesium (test code = 1.9 mg/dL 1.6-2.6 75888-3) JOHN (test code = JOHN) Lung Splitter ID - EDMOND C Lab Interpretation (test Normal code = 31449-5) [facility] CenterPhosphorus2020-05-27 07:38:00 Test Item Value Reference Range Interpretation Comments Phosphorus (test code = 2.9 mg/dL 2.3-4.7 2777-1) JOHN (test code = JOHN) Lung Splitter ID - EDMOND C Lab Interpretation (test Normal code = 94129-2) [facility] CenterUric [id number] 07:38:00 Test Item Value Reference Range Interpretation Comments Uric Acid (test code = 6.7 mg/dL 2.6-7.2 3084-1) JOHN (test code = JOHN) Lung Splitter ID - EDMOND CSpecimen slightly icteric Lab Interpretation (test Normal code = 94668-8) [facility] CenterMAGNESIUM2020-05-27 07:38:00 Test Item Value Reference Range Interpretation Comments MAGNESIUM (BEAKER) (test code = 1.9 mg/dL 1.6-2.6 627) Lung Splitter ID - EDMOND [id number] 07:38:00 Test Item Value Reference Range Interpretation Comments PHOSPHORUS (BEAKER) (test code = 2.9 mg/dL 2.3-4.7 604) Lung Splitter ID - EDMOND CURIC [id number] 07:38:00 Test Item Value Reference Range Interpretation Comments URIC ACID (BEAKER) (test code = 6.7 mg/dL 2.6-7.2 773) Lung Splitter ID - EDMOND CSpecimen slightly ictericLIPID [id number] 07:38:00 Test Item Value Reference Range Interpretation Comments TRIGLYCERIDES (BEAKER) (test code = 174 mg/dL 540) CHOLESTEROL (BEAKER) (test code = 237 mg/dL 631) HDL CHOLESTEROL (BEAKER) (test code 39 mg/dL = 976) LDL CHOLESTEROL CALCULATED (BEAKER) 163 mg/dL (test code = 633) Triglyceride Reference Range: Low Risk <150 Borderline 150-199 High Risk 200-499 Very High Risk >=500Cholesterol Reference Range: Low Risk <200 Borderline 200-239 High Risk >240HDL Cholesterol Reference Range: Low Risk >=60 High Risk <40LDL Cholesterol Reference Range: Optimal <100 Near Optimal 100-129 Borderline 130-159 High 160-189 Very High >=190 Lung Splitter ID - EDMOND CSpecimen slightly ictericBILIRUBIN, DIRECT 2019-11-27 07:38:00 Test Item Value Reference Range Interpretation Comments BILIRUBIN DIRECT (BEAKER) (test 1.2 mg/dL 0.1-0.5 H code = 706) Lung Splitter ID - EDMOND CGAMMA GLUTAMYL TRANSFERASE (GGT)2019-11-27 07:38:00 Test Item Value Reference Range Interpretation Comments GAMMA GLUTAMYL TRANSFERASE (BEAKER) 204 U/L 9-64 H (test code = 364) Lung Splitter ID - EDOMND CSpecimen slightly [id number] 07:36:00 Test Item Value Reference Range Interpretation Comments Ethanol Lvl (test code = <10 <=10 mg/dL 5643-2) JOHN (test code = JOHN) Lung Splitter ID - EDMOND C Lab Interpretation (test Normal code = 20792-5) [facility] CenterETHANOL2020-05-27 07:36:00 Test Item Value Reference Range Interpretation Comments ETHANOL (BEAKER) (test code = 400) < mg/dL <=10 Lung Splitter ID - EDMOND CCalcium, [id number] 07:24:00 Test Item Value Reference Range Interpretation Comments Calcium, Ion (test code = 1994-3) 1.09 mmol/L 1.12-1.27 L pH, Blood (test code = 92034-5) 7.36 Lab Interpretation (test code = Abnormal 75782-6) [facility] CenterCALCIUM, [id number] 07:24:00 Test Item Value Reference Range Interpretation Comments CALCIUM IONIZED (BEAKER) (test 1.09 mmol/L 1.12-1.27 L code = 698) PH, BLOOD (BEAKER) (test code = 7.36 1810) [id number] 07:21:00 Test Item Value Reference Range Interpretation Comments PTT (test code = 75908-5) 38.5 22.5- 36.0 seconds H Lab Interpretation (test code = Abnormal 43086-8) [facility] CenterAPTT2020-05-27 07:21:00 Test Item Value Reference Range Interpretation Comments PARTIAL THROMBOPLASTIN TIME 38.5 seconds 22.5-36.0 H (BEAKER) (test code = 760) [id number] 07:20:00 Test Item Value Reference Range Interpretation Comments Fibrinogen (test code = 3255-7) 163 mg/dl 225-434 L Lab Interpretation (test code = Abnormal 90514-1) [facility] CenterPROTHROMBIN TIME/[id number] 07:20:00 Test Item Value Reference Range Interpretation Comments PROTIME (BEAKER) (test code = 18.4 seconds 11.9-14.2 H 759) INR (BEAKER) (test code = 370) 1.6 <=5.9 Effective 11/28/2018: PT Reference Range ChangeNew: 11.9-14.2 Previous: 11.7- 14.7RECOMMENDED COUMADIN/WARFARIN INR THERAPY RANGESSTANDARD DOSE: 2.0-3.0 Includes: PROPHYLAXIS for venous thrombosis, systemic embolization; TREATMENT for venous thrombosis and/or pulmonary embolus.HIGH RISK: Target INR is2.5-3.5 for patients wiht mechanical heart valves.[id number] 07:20:00 Test Item Value Reference Range Interpretation Comments FIBRINOGEN LEVEL (BEAKER) (test 163 mg/dl 225-434 L code = 658) CBC W/PLT COUNT & AUTO [id number] 07:09:00 Test Item Value Reference Range Interpretation Comments WHITE BLOOD CELL COUNT (BEAKER) 4.6 K/ L 3.5-10.5 (test code = 775) RED BLOOD CELL COUNT (BEAKER) 2.65 M/ L 3.93-5.22 L (test code = 761) HEMOGLOBIN (BEAKER) (test code = 9.0 GM/DL 11.2-15.7 L 410) HEMATOCRIT (BEAKER) (test code = 26.9 % 34.1-44.9 L 411) MEAN CORPUSCULAR VOLUME (BEAKER) 101.5 fL 79.4-94.8 H (test code = 753) MEAN CORPUSCULAR HEMOGLOBIN 34.0 pg 25.6-32.2 H (BEAKER) (test code = 751) MEAN CORPUSCULAR HEMOGLOBIN CONC 33.5 GM/DL 32.2-35.5 (BEAKER) (test code = 752) RED CELL DISTRIBUTION WIDTH 15.6 % 11.7-14.4 H (BEAKER) (test code = 412) PLATELET COUNT (BEAKER) (test code 69 K/CU MM 150-450 L = 756) MEAN PLATELET VOLUME (BEAKER) 11.1 fL 9.4-12.3 (test code = 754) NUCLEATED RED BLOOD CELLS (BEAKER) 0 /100 WBC 0-0 (test code = 413) NEUTROPHILS RELATIVE PERCENT 50 % (BEAKER) (test code = 429) LYMPHOCYTES RELATIVE PERCENT 34 % (BEAKER) (test code = 430) MONOCYTES RELATIVE PERCENT 10 % (BEAKER) (test code = 431) EOSINOPHILS RELATIVE PERCENT 6 % (BEAKER) (test code = 432) BASOPHILS RELATIVE PERCENT 1 % (BEAKER) (test code = 437) NEUTROPHILS ABSOLUTE COUNT 2.30 K/ L 1.56-6.13 (BEAKER) (test code = 670) LYMPHOCYTES ABSOLUTE COUNT 1.55 K/ L 1.18-3.74 (BEAKER) (test code = 414) MONOCYTES ABSOLUTE COUNT (BEAKER) 0.45 K/ L 0.24-0.36 H (test code = 415) EOSINOPHILS ABSOLUTE COUNT 0.26 K/ L 0.04-0.36 (BEAKER) (test code = 416) BASOPHILS ABSOLUTE COUNT (BEAKER) 0.06 K/ L 0.01-0.08 (test code = 417) IMMATURE GRANULOCYTES-RELATIVE 0 % 0-1 PERCENT (BEAKER) (test code = 2801) RAD, MANDIBLE, MIN 4 [id number] 14:15:00Reason for Exam:->Pre-transplant evaluation for liver transplantFINAL REPORT TECHNIQUE: Five views of the mandible dated 11/20/2019 HISTORY: Pretransplant evaluation COMPARISON: None IMPRESSION:No displaced fracture. Temporomandibular joints are grossly unremarkable. No lytic or sclerotic lesion visualized. No radiodense foreign body or subcutaneous emphysema. Signed: Christopher Ocampoeport Verified Date/Time: 11/20/2019 14:15:05 Reading Location: [address] Radiology Reading Room XR mandible 4 views [id number] 14:15:00Interface, External Ris In - 11/20/2019 2:17 PM CDTFINAL REPORT TECHNIQUE: Five views of the mandible dated 11/20/2019 HISTORY: Pretransplant evaluation COMPARISON: None IMPRESSION:No displaced fracture. Temporomandibular joints are grossly unremarkable. No lytic or sclerotic lesion visualized. No radiodense foreign body or subcutaneous emphysema. Signed: Christopher Ocampoort Verified Date/Time: 11/20/2019 14:15:05 Reading Location: [address] Radiology Reading Room [facility]RAD[facility]ST, 2 VIEWS 2019-11-20 14:12:00Reason for Exam:->Pre-transplant evaluation for livertransplantFINAL REPORT TECHNIQUE: Frontal and lateral chest radiographs dated 11/20/2019. CLINICAL HISTORY: Pre transplant eval COMPARISON STUDY: None FINDINGS: Lungs are clear. No pleural effusion or pneumothorax. Cardiomediastinal silhouette is normal in size. No pulmonary edema. Degenerative changes are seen in the spine. IMPRESSION: Clear lungs. Signed: Christopher Ocampoeport Verified Date/Time: 11/20/2019 14:12:07 Reading Location: [address] Radiology Reading Room XR chest 2 views 2019-11-20 14:12:00Interface, External Ris In - 11/20/2019 2:14 PM CDTFINAL REPORT TECHNIQUE: Frontal and lateral chest radiographs dated 11/20/2019. CLINICAL HISTORY: Pre transplant eval COMPARISON STUDY: None FINDINGS: Lungs are clear. No pleural effusion or pneumothorax. Cardiomediastinal silhouette is normal in size. No pulmonary edema. Degenerative changes are seen in the spine. IMPRESSION: Clear lungs. Signed: Christopher Ocampoeport Verified Date/Time: 11/20/2019 14:12:07 Reading Location: [address] Radiology Reading Room Electronically signed by: Noah FALCON 11/20/2019 02:12 [facility]RAD, BONE DENSITY [id number] 13:50:00Reason for Exam:->Pre-transplant evaluation for liver transplantFINAL REPORT Bone density study, 11/20/2019 Clinical History: Screening Bonemineral density measurementLumbar spine1.130 gm/uw9Qeaevek neck0.880 gm/cm2 Standard deviation fromyoung adult population (T-score)Lumbar spine-0.4Femoral neck-1.1 Standard deviation for age adjusted population (Z-score)Lumbar spine0.8Femoral neck0.3 According to medical literature, this corresponds to no increased risk of an osteoporotic fracture of the lumbar spine as compared to the young adult population. The femoral neck bone mineral density corresponds to 1-2 times increased risk of an osteoporotic fracture as compared to the young adult population. Impression: Osteopenia of the femoralneck. Complete computer analysis will be sent shortly. Diagnostic criteria for osteoporosisBMD: Bone mineral density Normal: BMD measurement less than one standard deviation from young adult populationOsteopenia: BMD measurement between 1 and 2.5 standard deviationsOsteoporosis: BMD measurement greater than 2.5 standard deviationsSevere osteoporosis: Osteoporosis and one or more fragility fractures Signed: Alonso Dailyort Verified Date/Time: 11/20/2019 13:50:28 Reading Location: [address] Mammo Reading Room XR dxa bone density [id number] 13:50:00Interface, External Ris In - 11/20/2019 1:52 PM CDTFINAL REPORT Bone densitystudy, 11/20/2019 Clinical History: Screening Bone mineral density measurementLumbar spine1.130 gm/c p4Dkgpojq neck0.880 gm/cm2 Standard deviation from young adult population (T- score)Lumbar spine-0.4Femoral neck-1.1 Standard deviation for age adjusted population (Z-score)Lumbar spine0.8Femoral neck0.3 According to medical literature, this corresponds to no increased risk of an osteoporotic fracture of the lumbar spine as compared to the young adult population. The femoral neck bone mineral density corresponds to 1-2 times increased risk of an osteoporotic fracture as compared to the young adultpopulation. Impression: Osteopenia of the femoral neck. Complete computer analysis will be sent shortly. Diagnostic criteria for osteoporosisBMD: Bone mineral density Normal: BMD measurement less than one standard deviation from young adult populationOsteopenia: BMD measurement between 1 and 2.5 standard deviationsOsteoporosis: BMD measurement greater than 2.5 standard deviationsSevere osteoporosis: Osteoporosis and one or more fragility fractures Signed: Alonso Daily MDReport Verified Date/Time: 11/20/2019 13:50:28 Reading Location: [address] Mammo Reading Room [facility] CenterMR, ABDOMEN, [id number] 15:13:00FINAL REPORT TECHNIQUE: MRI of the abdomen WITHOUT and WITH intravenous contrast. INDICATION: 69-year-old woman with cirrhosis. COMPARISON: Abdomen MRI 05/10/2019. FINDINGS: LOWER THORAX: Unremarkable. LIVER: Cirrhotic morphology of the liver. No suspicious hepatic lesions. No significant change in size of the 1.2 cm linear arterially enhancing focus in the left hepatic lobe without corresponding washout or pseudocapsule (axial postcontrast arterial series image 49). Apparent 1.1 x 0.9 cm arterially enhancing focus in the left hepatic lobe was not clearly visualized on prior exam and does not have associated washout or pseudocapsule (axial postcontrast arterial series image 53). Unchanged subcentimeter cyst in the left hepatic lobe.BILIARY: Prior cholecystectomy. No significant change in prominence of the common bile duct, which measures up to 1.4 cm. No intrahepatic biliary ductal prominence.SPLEEN: No splenomegaly.PANCREAS: No significant change in unilocular cystic lesions in the pancreas which measure 0.6 cm at the body/neck junction and 1.1 x 1 cm in the pancreatic tail. No ductal dilatation. ADRENALS: No adrenal nodules.KIDNEYS/URETERS: No hydronephrosis or solid mass lesions. Unchanged subcentimeter cysts in both kidneys. PERITONEUM/RETROPERITONEUM: No free fluid .LYMPH NODES: No lymphadenopathy.VESSELS: Unchanged diminutive portal veins. Main portal vein measures 0.5 cm in diameter. Superior mesenteric and splenic veins are widely patent. Esophageal and perisplenic varices. Abdominal aorta is normal in caliber. GI TRACT: No distention or wall thickening. BONES AND SOFT TISSUES: Unremarkable. IMPRESSION:Cirrhosis with portal hypertension. No suspicious liverlesion. Indeterminate arterially enhancing foci in the left hepatic lobe. No significant change in prominence of the common duct, likely postcholecystectomy reservoir effect. No significant change in the pancreatic cystic lesions which measure up to 1.1 cm. RECOMMENDATION:Follow-up abdomen MRI with and without intravenous contrast (liver protocol) may be obtained in 6 months for reassessment. Signed: Melissa Guzmán MDReport Verified Date/Time: 11/08/2019 15:13:09 Reading Location: [address] Body Reading Room MR abdomen with/without IV [id number] 15:13:00Interface, External Ris In - 11/08/2019 3:15 PM CDTFINAL REPORT TECHNIQUE: MRI of the abdomen WITHOUT and WITH intravenous contrast. INDICATION: 69-year-old woman with cirrhosis. COMPARISON: Abdomen MRI 05/10/2019. FINDINGS: LOWER THORAX: Unremarkable. LIVER: Cirrhotic morphology of the liver. No suspicious hepatic lesions. No significant change in size of the 1.2 cm linear arterially enhancing focus in the left hepatic lobe without corresponding washout or pseudocapsule (axial postcontrast arterial series image 49). Apparent 1.1 x 0.9 cm arterially enhancing focus in the left hepatic lobe was not clearly visualized on prior exam and does not have associated washout or pseudocapsule (axial postcontrast arterial series image 53). Unchanged subcentimeter cyst in the left hepatic lobe.BILIARY: Prior cholecystectomy. No significant change in prominence of the common bile duct, which measures up to 1.4 cm. No intrahepatic biliary ductal prominence.SPLEEN: No splenomegaly.PANCREAS: No significant change in unilocular cystic lesions in the pancreas which measure 0.6 cm at the body/neck junction and 1.1 x 1 cm in the pancreatic tail. No ductal dilatation. ADRENALS: No adrenal nodules.KIDNEYS/URETERS: No hydronephrosis or solid mass lesions. Unchanged subcentimeter cysts in both kidneys. PERITONEUM/RETROPERITONEUM: No free fluid.LYMPH NODES: No lymphadenopathy.VESSELS: Unchanged diminutive portal veins. Main portal vein measures 0.5 cm in diameter. Superior mesenteric and spl enic veins are widely patent. Esophageal and perisplenic varices. Abdominal aorta is normal in caliber. GI TRACT: No distention or wall thickening. BONES AND SOFT TISSUES: Unremarkable. IMPRESSION:Cirrhosis with portal hypertension. No suspicious liver lesion. Indeterminate arterially enhancing foci in the left hepatic lobe. No significant change in prominence of the common duct, likely postcholecystectomy reservoir effect. No significant change in the pancreatic cystic lesions which measure up to 1.1 cm. RECOMMENDATION:Follow-up abdomen MRI with and without intravenous contrast (liver protocol) may be obtained in 6 months for reassessment. Signed: Melissa Guzmán MDReport Verified Date/Time: 11/08/2019 15:13:09 Reading Location: [facility] B1 C013Y CT Body Reading Room [facility]-[id number] 10:25:00 Test Item Value Reference Range Interpretation Comments POC-Creatinine (test code 1.8 mg/dL 0.6-1.3 H : TESTED AT = 1859) [facility] [address] [place] [address]: Lung Splitter/Techni ludin ID = [id number] for Free Estrellita POC-EGFR (test code = 28 mL/min/1.73M2 1860) Lab Interpretation (test Abnormal code = 96139-4) [facility] CenterPOCT-[id number] 10:25:00 Test Item Value Reference Range Interpretation Comments POC-CREATININE 1.8 mg/dL 0.6-1.3 H : TESTED AT B [facility] (BEAKER) (test [address], code = 1859) [place] [address]: Lung Splitter/Techni ludin ID = [id number] for Estrellita [place] POC-EGFR (BEAKER) 28 mL/min/1.73M2 (test code = 1860) Alpha fetoprotein (AFP), tumor [id number] 18:22:00 Test Item Value Reference Range Interpretation Comments Alpha-Fetoprotein (test code 3.5 ng/mL <10.0 = 1834-1) JOHN (test code = JOHN) Lung Splitter ID - BS Lab Interpretation (test Normal code = 97466-8) [facility] CenterALPHA FETOPROTEIN (AFP), TUMOR [id number] 18:22:00 Test Item Value Reference Range Interpretation Comments ALPHA-FETOPROTEIN (BEAKER) (test 3.5 ng/mL <10.0 code = 1094) Lung Splitter ID - [id number] 17:13:00 Test Item Value Reference Range Interpretation Comments THYROID STIMULATING HORMONE 1.36 uIU/mL 0.35-4.94 (AKER) (test code = 772) Lung Splitter ID - BSHepatic function [id number] 16:58:00 Test Item Value Reference Range Interpretation Comments Protein, Total (test code 5.9 6.0- 8.3 gm/dL L = 2885-2) Albumin (test code = 2.7 g/dL 3.5-5 L 46027-4) Total Bilirubin (test 2.9 mg/dL 0.2-1.2 H code = 1974-2) Bilirubin, Direct (test 1.4 mg/dL 0.1-0.5 H code = 1967-7) Alkaline Phosphatase 375 U/L 40-150 H (test code = 6768-6) AST (test code = 1920-8) 74 U/L 5-34 H ALT (test code = 1742-6) 43 U/L 6-55 JOHN (test code = JOHN) Lung Splitter ID - BSSpecimen slightly icteric Lab Interpretation (test Abnormal code = 38932-9) [facility] CenterBASI METABOLIC [id number] 16:58:00 Test Item Value Reference Range Interpretation Comments SODIUM (BEAKER) 138 meq/L 136-145 (test code = 381) POTASSIUM (BEAKER) 5.1 meq/L 3.5-5.1 (test code = 379) CHLORIDE (BEAKER) 111 meq/L 98-107 H (test code = 382) CO2 (BEAKER) (test 25 meq/L 22-29 code = 355) BLOOD UREA NITROGEN 18 mg/dL 7-21 (BEAKER) (test code = 354) CREATININE (BEAKER) 1.25 mg/dL 0.57-1.25 (test code = 358) GLUCOSE RANDOM 132 mg/dL 70-105 H (BEAKER) (test code = 652) CALCIUM (BEAKER) 8.7 mg/dL 8.4-10.2 (test code = 697) EGFR (BEAKER) (test 42 mL/min/1.73 ESTIMA LESIA GFR IS code = 1092) sq m NOT ACCURATE CREATININE CLEARANCE IN PREDICTING GLOMERULAR FILTRATION RATE . ESTIMATED GFR I S NOT APPLICABLE FOR DIALYSIS PATIEN TS. Lung Splitter ID - BSSpecimen slightly ictericHEPATIC FUNCTION [id number] 16:58:00 Test Item Value Reference Range Interpretation Comments TOTAL PROTEIN (BEAKER) (test code = 5.9 gm/dL 6.0-8.3 L 770) ALBUMIN (BEAKER) (test code = 1145) 2.7 g/dL 3.5-5.0 L BILIRUBIN TOTAL (BEAKER) (test code 2.9 mg/dL 0.2-1.2 H = 377) BILIRUBIN DIRECT (BEAKER) (test 1.4 mg/dL 0.1-0.5 H code = 706) ALKALINE PHOSPHATASE (BEAKER) (test 375 U/L 40-150 H code = 346) AST (SGOT) (BEAKER) (test code = 74 U/L 5-34 H 353) ALT (SGPT) (BEAKER) (test code = 43 U/L 6-55 347) Lung Splitter ID - BSSpecimen slightly ictericPROTHROMBIN [id number] 16:44:00 Test Item Value Reference Range Interpretation Comments PROTIME (BEAKER) (test code = 17.4 seconds 11.9-14.2 H 759) INR (BEAKER) (test code = 370) 1.5 <=5.9 Effective 11/28/2018: PT Reference Range ChangeNew: 11.9-14.2 Previous: 11.7- 14.7RECOMMENDED COUMADIN/WARFARIN INR THERAPY RANGESSTANDARD DOSE: 2.0-3.0 Includes: PROPHYLAXIS for venous thrombosis, systemic embolization; TREATMENT for venous thrombosis and/or pulmonary embolus.HIGH RISK: Target INR is2.5-3.5 for patients wiht mechanical heart valves.CBC W/PLT COUNT & AUTO [id number] 16:35:00 Test Item Value Reference Range Interpretation Comments WHITE BLOOD CELL COUNT (BEAKER) 5.2 K/ L 3.5-10.5 (test code = 775) RED BLOOD CELL COUNT (BEAKER) 3.25 M/ L 3.93-5.22 L (test code = 761) HEMOGLOBIN (BEAKER) (test code = 11.0 GM/DL 11.2-15.7 L 410) HEMATOCRIT (BEAKER) (test code = 34.1 % 34.1-44.9 411) MEAN CORPUSCULAR VOLUME (BEAKER) 104.9 fL 79.4-94.8 H (test code = 753) MEAN CORPUSCULAR HEMOGLOBIN 33.8 pg 25.6-32.2 H (BEAKER) (test code = 751) MEAN CORPUSCULAR HEMOGLOBIN CONC 32.3 GM/DL 32.2-35.5 (BEAKER) (test code = 752) RED CELL DISTRIBUTION WIDTH 14.5 % 11.7-14.4 H (BEAKER) (test code = 412) PLATELET COUNT (BEAKER) (test code 72 K/CU MM 150-450 L = 756) MEAN PLATELET VOLUME (BEAKER) 10.6 fL 9.4-12.3 (test code = 754) NUCLEATED RED BLOOD CELLS (BEAKER) 0 /100 WBC 0-0 (test code = 413) NEUTROPHILS RELATIVE PERCENT 55 % (BEAKER) (test code = 429) LYMPHOCYTES RELATIVE PERCENT 29 % (BEAKER) (test code = 430) MONOCYTES RELATIVE PERCENT 10 % (BEAKER) (test code = 431) EOSINOPHILS RELATIVE PERCENT 5 % (BEAKER) (test code = 432) BASOPHILS RELATIVE PERCENT 1 % (BEAKER) (test code = 437) NEUTROPHILS ABSOLUTE COUNT 2.86 K/ L 1.56-6.13 (BEAKER) (test code = 670) LYMPHOCYTES ABSOLUTE COUNT 1.49 K/ L 1.18-3.74 (BEAKER) (test code = 414) MONOCYTES ABSOLUTE COUNT (BEAKER) 0.51 K/ L 0.24-0.36 H (test code = 415) EOSINOPHILS ABSOLUTE COUNT 0.24 K/ L 0.04-0.36 (BEAKER) (test code = 416) BASOPHILS ABSOLUTE COUNT (BEAKER) 0.05 K/ L 0.01-0.08 (test code = 417) IMMATURE GRANULOCYTES-RELATIVE 0 % 0-1 PERCENT (BEAKER) (test code = 2801) ALPHA FETOPROTEIN (AFP), TUMOR [id number] 11:54:00 Test Item Value Reference Range Interpretation Comments ALPHA-FETOPROTEIN (BEAKER) (test 2.9 ng/mL <10.0 code = 1094) BASIC METABOLIC [id number] 11:33:00 Test Item Value Reference Range Interpretation Comments SODIUM (BEAKER) 141 meq/L 136-145 (test code = 381) POTASSIUM (BEAKER) 5.3 meq/L 3.5-5.1 H (test code = 379) CHLORIDE (BEAKER) 112 meq/L 98-107 H (test code = 382) CO2 (BEAKER) (test 27 meq/L 22-29 code = 355) BLOOD UREA NITROGEN 19 mg/dL 7-21 (BEAKER) (test code = 354) CREATININE (BEAKER) 1.21 mg/dL 0.57-1.25 (test code = 358) GLUCOSE RANDOM 145 mg/dL 70-105 H (BEAKER) (test code = 652) CALCIUM (BEAKER) 9.4 mg/dL 8.4-10.2 (test code = 697) EGFR (BEAKER) (test 44 mL/min/1.73 ESTIMA LESIA GFR IS code = 1092) sq m NOT ACCURATE CREATININE CLEARANCE IN PREDICTING GLOMERULAR FILTRATION RATE . ESTIMATED GFR I S NOT APPLICABLE FOR DIALYSIS PATIEN TS. Specimen slightly ictericHEPATIC FUNCTION [id number] 11:33:00 Test Item Value Reference Range Interpretation Comments TOTAL PROTEIN (BEAKER) (test code = 5.9 gm/dL 6.0-8.3 L 770) ALBUMIN (BEAKER) (test code = 1145) 2.7 g/dL 3.5-5.0 L BILIRUBIN TOTAL (BEAKER) (test code 3.0 mg/dL 0.2-1.2 H = 377) BILIRUBIN DIRECT (BEAKER) (test 1.4 mg/dL 0.1-0.5 H code = 706) ALKALINE PHOSPHATASE (BEAKER) (test 279 U/L 40-150 H code = 346) AST (SGOT) (BEAKER) (test code = 78 U/L 5-34 H 353) ALT (SGPT) (BEAKER) (test code = 45 U/L 6-55 347) Specimen slightly ictericPROTHROMBIN [id number] 11:21:00 Test Item Value Reference Range Interpretation Comments PROTIME (BEAKER) (test code = 17.5 seconds 11.9-14.2 H 759) INR (BEAKER) (test code = 370) 1.5 <=5.9 Effective 11/28/2018: PT Reference Range ChangeNew: 11.9-14.2 Previous: 11.7- 14.7RECOMMENDED COUMADIN/WARFARIN INR THERAPY RANGESSTANDARD DOSE: 2.0-3.0 Includes: PROPHYLAXIS for venous thrombosis, systemic embolization; TREATMENT for venous thrombosis and/or pulmonary embolus.HIGH RISK: Target INR is2.5-3.5 for patients wiht mechanical heart valves.CBC W/PLT COUNT & AUTO [id number] 11:14:00 Test Item Value Reference Range Interpretation Comments WHITE BLOOD CELL COUNT (BEAKER) 5.2 K/ L 3.5-10.5 (test code = 775) RED BLOOD CELL COUNT (BEAKER) 3.26 M/ L 3.93-5.22 L (test code = 761) HEMOGLOBIN (BEAKER) (test code = 11.1 GM/DL 11.2-15.7 L 410) HEMATOCRIT (BEAKER) (test code = 33.8 % 34.1-44.9 L 411) MEAN CORPUSCULAR VOLUME (BEAKER) 103.7 fL 79.4-94.8 H (test code = 753) MEAN CORPUSCULAR HEMOGLOBIN 34.0 pg 25.6-32.2 H (BEAKER) (test code = 751) MEAN CORPUSCULAR HEMOGLOBIN CONC 32.8 GM/DL 32.2-35.5 (BEAKER) (test code = 752) RED CELL DISTRIBUTION WIDTH 14.1 % 11.7-14.4 (BEAKER) (test code = 412) PLATELET COUNT (BEAKER) (test code 82 K/CU MM 150-450 L = 756) MEAN PLATELET VOLUME (BEAKER) 11.0 fL 9.4-12.3 (test code = 754) NUCLEATED RED BLOOD CELLS (BEAKER) 0 /100 WBC 0-0 (test code = 413) NEUTROPHILS RELATIVE PERCENT 55 % (BEAKER) (test code = 429) LYMPHOCYTES RELATIVE PERCENT 27 % (BEAKER) (test code = 430) MONOCYTES RELATIVE PERCENT 10 % (BEAKER) (test code = 431) EOSINOPHILS RELATIVE PERCENT 6 % (BEAKER) (test code = 432) BASOPHILS RELATIVE PERCENT 2 % (BEAKER) (test code = 437) NEUTROPHILS ABSOLUTE COUNT 2.85 K/ L 1.56-6.13 (BEAKER) (test code = 670) LYMPHOCYTES ABSOLUTE COUNT 1.42 K/ L 1.18-3.74 (BEAKER) (test code = 414) MONOCYTES ABSOLUTE COUNT (BEAKER) 0.52 K/ L 0.24-0.36 H (test code = 415) EOSINOPHILS ABSOLUTE COUNT 0.29 K/ L 0.04-0.36 (BEAKER) (test code = 416) BASOPHILS ABSOLUTE COUNT (BEAKER) 0.08 K/ L 0.01-0.08 (test code = 417) IMMATURE GRANULOCYTES-RELATIVE 0 % 0-1 PERCENT (BEAKER) (test code = 2801) MR, ABDOMEN, [id number] 11:16:00Please do with MRCPFINAL REPORT INDICATION:History of cirrhosis, screen for HCC COMPARISON: [facility] MRI dated 11/15/2018 TECHNIQUE: MRI of the abdomen and MRCP WITHOUT and WITH intravenous contrast. 3-D volume reconstructions were obtained to evaluate the biliary ductal system FINDINGS: LOWER THORAX: Unremarkable. HEPATOBILIARY: Nodular liver contour compatible cirrhosis. Unchanged subcentimeter cyst in segment IVb. 1.6 cm bandlike area of arterial enhancement in segment 2/3 without associatedT2 signal abnormality, washout, or pseudocapsule. GALLBLADDER: The gallbladder is absent. Unchanged dilatation of the common bile duct which measures up to 1.4 cm, likely related to reservoir effect. There is no stricture or filling defect. SPLEEN: No splenomegaly. PANCREAS: No focal pancreatic ductaldilatation. Stable size of a 0.8 cm unilocular cyst in the pancreatic tail (image 11, series 401) and a 0.2 cm unilocular cyst in the pancreatic body. ADRENALS: No adrenal nodules. KIDNEYS/URETERS: No hydronephrosis. No stones. No solid or enhancing lesions. Tiny simple cysts in both kidneys, which measure up to 0.6 cm the superior pole right. GI TRACT: No dilatation or wall thickening. Small sliding hiatal hernia. PERITONEUM/RETROPERITONEUM: No free fluid. LYMPH NODES: No lymphadenopathy. VESSELS:The portal vein is diminutive but patent and measures up to 0.5 cm. There are dilated perisplenic and esophageal varices. BONES: No lytic or blastic bony lesions. SOFT TISSUES: Mild subcutaneous edema. IMPRESSION: 1.Cirrhosis with portal hypertension and severely atretic main portal vein. 2.No suspicious liver lesion. A 1.6 cm bandlike area of arterial enhancement in segment II/III is without associated T2 signal abnormality, washout, or pseudocapsule and may be perfusional/shunt. 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 Signed: Melissa Guzmán MDReport Verified Date/Time: 05/10/2019 11:16:53 Reading Location: [address] [id number] 08:14:00 Test Item Value Reference Range Interpretation Comments POC-CREATININE 1.5 mg/dL 0.6-1.3 H TESTED AT [facility] ([facility]) (test 059 [facility] code = 1859) [facility] 7703 0 POC-EGFR 34 mL/min/1.73M2 (Microblr) (test code = 1860) MR, ABDOMEN, [id number] 10:38:00FINAL REPORT TECHNIQUE: MRI of the abdomen WITHOUT and WITH intravenous contrast. INDICATION: 68-year-old woman with cirrhosis. COMPARISON: Abdomen MRI 05/04/2018. FINDINGS: LOWER THORAX: Unremarkable. LIVER: Cirrhotic morphology of the liver. No suspicious hepatic lesions. Unchanged subcentimeter cyst in segment IV.BILIARY: Gallbladder is unremarkable. Unchanged prominence of the common duct, which measures up to 1.2 cm in diameter. No intrahepatic biliary ductal prominence.SP DORA: No splenomegaly.PANCREAS: No significant change in size of the few unilocular cystic lesions in the pancreas, the largest measures 1 cm in the tail. No solid masses or ductal dilatation. ADRENALS: No adrenal nodules.KIDNEYS/URETERS: No hydronephrosis or solid mass lesions. Unchanged bilateral subcentimeter renal cysts. PERITONEUM/RETROPERITONEUM: No free fluid.LYMPH NODES: No lymphadenopathy.VESSELS: Portal system and hepatic veins are patent. Main portal vein remains diminutive at 0.5 cm in diameter. Esophageal and perisplenic varices. Abdominal aorta is normal in caliber. GI TRACT: No distention or wall thickening. BONES AND SOFT TISSUES: Unremarkable. IMPRESSION:Cirrhosis with portal hypertension. No suspicious liver lesion. No significant change in pancreatic cystic lesions. RECOMMENDATION:Follow-up abdomen MRI with and without intravenous contrast (liver protocol) may be obtained in 6 months to reassess above findings. Signed: Melissa Guzmáneport Verified Date/Time: 11/15/201810:38:58 Reading Location: [address] Ultrasound Reading Room [id number] 08:53:00 Test Item Value Reference Range Interpretation Comments POC-CREATININE 1.2 mg/dL 0.6-1.3 TESTED AT [facility] ([facility]) (test 5207 [facility] code = 1859) [facility] 7703 0 POC-EGFR 45 mL/min/1.73M2 (BEAKER) (test code = 1860) TISSUE [id number] 15:13:00Surgical Pathology Report Case: [id number] Authorizing Provider: Barry Gonzalez MD Collected: 08/03/2018 1019 Ordering Location: [facility] Endoscopy Received: 08/03/2018 1411 Services Pathologist: Jj Mei MD Specimen: Biopsy, Gastric, antrum bx STOMACH, ANTRUM, BIOPSY: - CHRONIC INACTIVE GASTRITIS - GASTRIC MUCOSA WITH HYPERPLASTIC CHANGES AND A FEW MILDLY DISTENDED SMALL VESSELS IN LAMINA PROPRIA (SEE COMMENT) - NEGATIVE FOR H. PYLORI BY WARTHIN-STARRY STAIN Signing Pathologist Direct Phone Line: [phone] signed by Jj Mei MD on 08/06/2018 at 3:13 PMThe histomorphologic findings are not entirely specific and may be seenin portal hypertensive gastropathy, gastric antral vascular ectasia or reactive gastropathy. Clinical/endoscopic correlation is recommended.[id number], [id number] of liver with ascitesAntrum gastric biopsy The specimen is received in a formalin-filled container labeled with the patient's information and labeled "gastric antrum biopsy" and consists of a 0.2 cm round fragment of greer-white soft tissue entirely submitted in A1. CG/ew Performed.The interpretation of this case included the use of immunohistochemistry or special stains.Warthin-Starry Immunohistochemistry technical testing was performed at [facility], Pathology Laboratory where it was developed and its performance characteristics were determined. It has not been cleared or approved by the U.S. Food and Drug Administration. The FDA has determined that such clearance or approval is not necessary. The test is used for clinical purposes. It should not be regarded as investigational or for research. This laboratory is certified under the Clinical Laboratory Improvement Amendments of 1988 (CLIA-88) as qualified to perform high complexity clinical laboratory testing.POCT-GLUCOSE [id number] 09:03:00 Test Item Value Reference Range Interpretation Comments POC-GLUCOSE METER 95 mg/dL 70-110 TESTED AT [facility]20 ([place]) (test code = [place] [address] 1538) MR, ABDOMEN, [id number] 15:47:00FINAL REPORT MRI of abdomen dated May 04, 2018 COMPARISON: November 10, 2017 Comment: Multiplanar T1 and T2-weighted images of the abdomen, postcontrast axial and coronal T1-weight ed images of the abdomen were obtained. Liver is cirrhotic in appearance with irregular margins. No abnormal enhancement or suspicious mass is seen in the liver. Spleen is in upper limits of normal in size measuring approximately 10 x 5 x 11 cm. The splenic and superior mesenteric veins are patent. The main portal vein is atretic and small caliber. Prominent distended collateral veins are seen in thesplenic hilum. Gallbladder is not visualized. No biliary dilatation is seen. Pancreas is normal in caliber. Again noted are stable 6 mm cystic lesion in the tail of the pancreas and a 2 mm cystic lesion in the body of the pancreas. No pancreatic duct dilatation is seen. The adrenals are unremarkable. Both kidneys are normal in size and functioning. No mass, adenopathy, or ascites is seen in the abdomen. The visualized small and large bowel are unremarkable. IMPRESSION: 1. Cirrhosis without suspicious hepatic mass.2. Stable cystic lesions in the body and tail of the pancreas. Signed: Kim Zabala MDReport Verified Date/Time: 05/04/2018 15:47:42 Reading Location: [address] Body Reading Room [id number] 09:34:00 Test Item Value Reference Range Interpretation Comments POC-CREATININE 1.4 mg/dL 0.6-1.3 H TESTED AT [facility] ([facility]) (test 2457 [facility] code = 1859) [facility] 7703 0 POC-EGFR 37 mL/min/1.73M2 ([facility]) (test code = 1860) MR, ABDOMEN, [id number] 10:20:00FINAL REPORT History: Cirrhosis, screening for HCC Comparison: 12/28/2016 Technique : Multiplanar imaging with multiple sequences of the abdomen was performed utilizing a 1.0 john magnet with and without the administration of gadolinium contrast. Comment: The lung bases are clear. There are no focal or diffuse abnormalities of the osseous structures. The subcutaneous soft tissues as well as the musculature are within normal limits. The spleen, adrenal glands, kidneys, stomach, and duodenum are within normal limits. There is no abdominal or retroperitoneal lymphadenopathy. The visualized portions of the large and small bowel are within normal limits. In the pancreatic tail, there is a stable cystic focus/lesion measuring up to 0.7 cm. There is hepatic cirrhosis. No suspicious enhancing hepatic lesions are seen. The patient does have some mild splenomegaly. The patient is status post cholecystectomy. There is biliary ductal dilatation which is not appreciably changed and is more likely a function of the patient's age as well as history of cholecystectomy. Findings should be correlated with LFTs and if indicated, an MRCP can be obtained. No ascites is identified. The mainportal vein is severely atretic measuring up to a maximum of 0.5 cm in diameter. There are marked gastroesophageal varices as well as some collateral vessels in the left abdomen. Impression: 1. Hepaticcirrhosis. No suspicious enhancing hepatic lesions are seen. 2. Stable subcentimeter pancreatic tailcystic lesion. Follow-up MRI in 6 months is advised. 3. Severely atretic main portal vein with largeportosystemic venous collaterals. Signed: Jonathon Garciaort Verified Date/Time: 11/10/2017 10:20:47 Reading Location: [address] Body Reading Room [id number] 09:07:00 Test Item Value Reference Range Interpretation Comments POC-CREATININE 1.2 mg/dL 0.6-1.3 TESTED AT [facility] ([facility]) (test 2457 [facility] code = 1859) [facility] 7703 0 POC-EGFR 45 mL/min/1.73M2 (BEAKER) (test code = 1860) TISSUE [id number] 11:27:00Surgical Pathology Report Case: [id number] Authorizing Provider: Barry Gonzalez MD Collected: 07/28/2017 1004 Ordering Location: [facility] Endoscopy Received: 07/28/2017 1129 Services Pathologist: Jordyn Tran MD Specimens: A) - Duodenum, DUODENUM BX B) - Antrum, ANTRUM BX A. SMALL INTESTINE, DUODENUM, BIOPSY: - DUODENAL MUCOSA WITH NO SIGNIFICANT PATHOLOGIC ALTERATION - NO VILLOUS BLUNTING OR INCREASE IN INTRAEPITHELIAL LYMPHOCYTES B. STOMACH, ANTRUM, BIOPSY: - ANTRAL AND OXYNTIC MUCOSAWITH CHRONIC INACTIVE GASTRITIS - NO INTESTINAL METAPLASIA, DYSPLASIA OR MALIGNANCY SEEN - NEGATIVE FOR H. PYLORI ORGANISMS (WARTHIN STARRY STAIN) Signing Pathologist Direct Phone Line: [phone] signed by Jordyn Tran MD on 07/31/2017 at 11:27 [id number] x2, [id number] cirrhosisA. Duodenum biopsy; B. Antrum biopsySpecimen A: Received in formalin labeled "duodenum" are three fragments measuring 0.8 x 0.6 x 0.1 cm in aggregate. Entirely submitted A1. Specimen B. Received in formalin labeled "antrum" are four fragments measuring 1.0 x 0.5 x 0.1 cm in aggregate. Entirely submitted B1. DB/Mariusz-B. Performed. The following special studies were performed on this case and the interpretation is incorporated in the diagnostic report above:[facility], Department of Pathology, [address] [place] [address], [facility], [facility], [address] [place] [address], [facility], Department of Pathology, [address] [place] [id number], [id number] 2017-07-28 08:42:00 Test Item Value Reference Range Interpretation Comments POC-POTASSIUM 5.2 meq/L 3.6-5.5 TESTED AT [facility] C 67 ([facility]) (test code [place] [address] = 1540) MR, ABDOMEN, [id number] 09:18:00Do not do if eGFR is less than 40, per Dr. Gonzalez. Current BUN \\T\\ Cr are normal as of 12/2016FINAL REPORT History: Cirrhosis, cancer screening Comparison: 12/08/2016 Technique : Multiplanar imaging with multiple sequences of the abdomen was performed utilizing a 1.0 john magnet with and without the administration of gadolinium contrast. Comment: The lung bases are clear. There are no focal or diffuse abnormalities of the osseous structures. The subcutaneous soft tissues as well as the musculature are within normal limits. The liver, spleen, adrenal glands, kidneys, stomach, and duodenum are within normal limits. There is no abdominal or retroperitoneal lymphadenopathy. The visualized portions of the large and small bowel are within normal limits. Along the pancreatic tail, there is a tiny stable cystic lesion measuring up to 0.6 cm. The patient is status post cholec ystectomy. There is some biliary ductal dilatation that is more likely a function of the patient's age as well as history of cholecystectomy. No ascites is identified. There is a chronically thrombosedversus markedly atretic main portal vein. There is no splenic or superior mesenteric venous thrombosis, however. Impression: 1. Hepatic cirrhosis. No suspicious enhancing hepatic lesions are seen. 2. Severely atretic versus chronically thrombosed portal vein. There are large portosystemic venous collaterals. 3. Stable subcentimeter pancreatic cystic lesion. Signed: Jonathon Garcia MDReport Verified Date/Time: 05/16/2017 09:18:39 Reading Location: [facility] Diagnostic Imaging Reading Room - [place] [address] [id number] 08:16:00 Test Item Value Reference Range Interpretation Comments POC-CREATININE 1.2 mg/dL 0.6-1.3 TESTED AT [facility] ([facility]) (test [address] [place] [address] code = 1859) [facility] 7703 0 POC-EGFR 45 mL/min/1.73M2 ([facility] (test code = 1860) [id number] 07:57:00 Test Item Value Reference Range Interpretation Comments POC-CREATININE 1.2 mg/dL 0.6-1.3 TESTED AT [facility] ([facility]) (test [address] [place] [address] code = 1859) [facility] 7703 0 POC-EGFR 45 mL/min/1.73M2 ([facility]) (test code = 1860) CBC W/PLT COUNT & AUTO [id number] 12:38:00 Test Item Value Reference Range Interpretation Comments WHITE BLOOD CELL COUNT (AKER) 5.0 K/ L 4.0-10.0 (test code = 775) RED BLOOD CELL COUNT (AKER) 3.30 M/ L 4.00-5.00 L (test code = 761) HEMOGLOBIN (BEAKER) (test code = 12.1 GM/DL 12.0-15.0 410) HEMATOCRIT (AKER) (test code = 34.8 % 36.0-45.0 L 411) MEAN CORPUSCULAR VOLUME (BEAKER) 105.0 fL 82.0-99.0 H (test code = 753) MEAN CORPUSCULAR HEMOGLOBIN 36.6 pg 27.0-33.0 H (BEAKER) (test code = 751) MEAN CORPUSCULAR HEMOGLOBIN CONC 34.8 GM/DL 32.0-36.0 (BEAKER) (test code = 752) RED CELL DISTRIBUTION WIDTH 12.2 % 10.3-14.2 (BEAKER) (test code = 412) PLATELET COUNT (BEAKER) (test code 79 K/CU MM 150-430 L = 756) MEAN PLATELET VOLUME (BEAKER) 9.1 fL 6.5-10.5 (test code = 754) NUCLEATED RED BLOOD CELLS (BEAKER) 0 /100 WBC 0-0 (test code = 413) NEUTROPHILS RELATIVE PERCENT 55 % (BEAKER) (test code = 429) LYMPHOCYTES RELATIVE PERCENT 30 % (BEAKER) (test code = 430) MONOCYTES RELATIVE PERCENT 9 % (BEAKER) (test code = 431) EOSINOPHILS RELATIVE PERCENT 4 % (BEAKER) (test code = 432) BASOPHILS RELATIVE PERCENT 1 % (BEAKER) (test code = 437) NEUTROPHILS ABSOLUTE COUNT 2.76 K/ L 1.80-8.00 (BEAKER) (test code = 670) LYMPHOCYTES ABSOLUTE COUNT 1.53 K/ L 1.48-4.50 (BEAKER) (test code = 414) MONOCYTES ABSOLUTE COUNT (BEAKER) 0.47 K/ L 0.00-1.30 (test code = 415) EOSINOPHILS ABSOLUTE COUNT 0.22 K/ L 0.00-0.50 (BEAKER) (test code = 416) BASOPHILS ABSOLUTE COUNT (BEAKER) 0.06 K/ L 0.00-0.20 (test code = 417) 0.00ALPHA FETOPROTEIN (AFP), TUMOR [id number] 12:34:00 Test Item Value Reference Range Interpretation Comments ALPHA-FETOPROTEIN (BEAKER) (test 4.7 ng/mL <10.0 code = 1094) Effective 05/20/2014: Reference Range ChangeNew: <10.0 Previous: 0.0-8.0 BASIC METABOLIC [id number] 12:22:00 Test Item Value Reference Range Interpretation Comments SODIUM (BEAKER) 140 meq/L 136-145 (test code = 381) POTASSIUM (BEAKER) 4.0 meq/L 3.5-5.1 (test code = 379) CHLORIDE (BEAKER) 109 meq/L 98-107 H (test code = 382) CO2 (BEAKER) (test 24 meq/L 22-29 code = 355) BLOOD UREA NITROGEN 14 mg/dL 7-21 (BEAKER) (test code = 354) CREATININE (BEAKER) 0.98 mg/dL 0.57-1.25 (test code = 358) GLUCOSE RANDOM 140 mg/dL 70-105 H (BEAKER) (test code = 652) CALCIUM (BEAKER) 9.2 mg/dL 8.4-10.2 (test code = 697) EGFR (BEAKER) (test 57 mL/min/1.73 ESTIMA LESIA GFR IS code = 1092) sq m NOT ACCURATE CREATININE CLEARANCE IN PREDICTING GLOMERULAR FILTRATION RATE . ESTIMATED GFR I S NOT APPLICABLE FOR DIALYSIS PATIEN TS. Specimen slightly ictericHEPATIC FUNCTION [id number] 12:22:00 Test Item Value Reference Range Interpretation Comments TOTAL PROTEIN (BEAKER) (test code = 6.2 gm/dL 6.0-8.3 770) ALBUMIN (BEAKER) (test code = 1145) 3.3 g/dL 3.5-5.0 L BILIRUBIN TOTAL (BEAKER) (test code 2.1 mg/dL 0.2-1.2 H = 377) BILIRUBIN DIRECT (BEAKER) (test 0.9 mg/dL 0.1-0.5 H code = 706) ALKALINE PHOSPHATASE (BEAKER) (test 216 U/L 40-150 H code = 346) AST (SGOT) (BEAKER) (test code = 69 U/L 5-34 H 353) ALT (SGPT) (BEAKER) (test code = 49 U/L 6-55 347) Specimen slightly ictericPROTHROMBIN TIME/[id number] 12:18:00 Test Item Value Reference Range Interpretation Comments PROTIME (BEAKER) (test code = 16.1 seconds 11.7-14.7 H 759) INR (BEAKER) (test code = 370) 1.3 <=5.9 RECOMMENDED COUMADIN/WARFARIN INR THERAPY RANGESSTANDARD DOSE: 2.0 - 3.0 Includes: PROPHYLAXIS forvenous thrombosis, systemic embolization; TREATMENT for venous thrombosis and/or pulmonary embolus.HIGH RISK: Target INR is 2.5-3.5 for patients with mechanical heart valves.
[2019-12-20 14:17] LABS: Urine Blood NEGATIVE (NEG); Urine Glucose NEGATIVE (NEG); Urine Protein NEGATIVE (NEG)
[2019-12-20 14:18] LABS: Absolute Lymphocytes (CBC) 1.2 K/uL (0.7-4.9); Basophils % 0.3 % (0-1.3); Lymphocytes % 12.6 % (15.3-44.8); MPV 11.2 fL (7.6-11.3); RBC Red Blood Cell Count 2.41 M/uL (3.86-4.86)
[2019-12-20 14:31] LABS: Potassium 5.2 mmol/L (3.5-5.1)
[2019-12-20 15:45] LABS: Urine White Blood Cell Casts OK
[2019-12-20 15:46] LABS: Blood Morphology Comment NOTED (NOT SEEN); Hypochromasia 1+; Platelet Estimate DECR
--- NOTE | 2019-12-20 18:33 | EDPHYS ---
Physician Documentation [facility] Name: Jordyn Manzano Age: 69 yrs Sex: Female : 1950 Arrival Date: 12/20/2019 Time: 11:53 Bed 14 Private MD: ED Physician Joce Maciel HPI: 12/19 16:09 This 69 yrs old Female presents to ER via Ambulatory with complaints of kdr LEAKING FROM INSERTION (FROM HEART CATH PROC). 16:09 The patient had diagnostic cath two Mondays ago and PCI last Monday. Shortly afterward, kdr she started to have clear drainage from the site of the cath insertion in the right groin. the fluid had been clear and without blood or any other color or indication of infection. The patient denies pain. She is apparently being evalauted for possible liver transplant. Historical: - Allergies: 12:12 No Known Allergies; hb - PMHx: 12:12 Diabetes - NIDDM; High Cholesterol; Hypertension; Cirrhosis; hb - PSHx: 12:12 Cholecystectomy; heart cath with stent placement; hb - Immunization history:: Flu vaccine is not up to date. - Social history:: Smoking status: Patient denies any tobacco usage or history of. Patient/guardian denies using alcohol, street drugs, tobacco products. ROS: 16:14 Constitutional: Negative for fever, chills, and weight loss, Eyes: Negative for injury, kdr pain, redness, and discharge, Neck: Negative for injury, pain, and swelling, Cardiovascular: Negative for chest pain, palpitations, and edema, Respiratory: Negative for shortness of breath, cough, wheezing, and pleuritic chest pain, Abdomen/GI: Negative for abdominal pain, nausea, vomiting, diarrhea, and constipation, Back: Negative for injury and pain, Skin: Negative for injury, rash, and discoloration, Neuro: Negative for headache, weakness, numbness, tingling, and seizure activity. Psych: Negative for depression, anxiety, suicide ideation, homicidal ideation, and hallucinations, Allergy/Immunology: Negative for hives, rash, and allergies, Endocrine: Negative for neck swelling, polydipsia, polyuria, polyphagia, and marked weight changes, Hematologic/Lymphatic: Negative for swollen nodes, abnormal bleeding, and unusual bruising. 16:14 MS/extremity: Positive for Ecchymosis to right groin. Exam: 16:14 Constitutional: This is a well developed, well nourished patient who is awake, alert, kdr and in no acute distress. Head/Face: Normocephalic, atraumatic. 16:14 Abdomen/GI: Inspection: obese Bowel sounds: active, all quadrants, Palpation: soft, mild abdominal tenderness, in the suprapubic area, right lower quadrant and left lower quadrant. Vital Signs: 12:07 BP 125 / 37; Pulse 81; Resp 18; Temp 97.7; Pulse Ox 98% ; Weight 82.55 kg; Height 5 ft. hb 0 in. (152.40 cm); Pain 10/10; 14:14 BP 111 / 48; Pulse 80; Resp 16; Pulse Ox 99% ; sv 15:19 BP 131 / 54; Pulse 78; Resp 16; Pulse Ox 100% ; sv 16:00 BP 139 / 54; Pulse 77; Resp 16; Pulse Ox 100% ; sv 16:56 BP 126 / 52; Pulse 80; Resp 16; Pulse Ox 100% ; sv 18:00 BP 122 / 53; Pulse 77; Resp 16; Pulse Ox 100% ; sv 19:30 BP 124 / 58; Pulse 76; Resp 18; Pulse Ox 100% on R/A; jb4 12:07 Body Mass Index 35.54 (82.55 kg, 152.40 cm) hb MDM: 16:01 Data reviewed: vital signs. ED course: D/w Dr. álvarez re IVP/US for clear fluid kdr drainage from right groin the site of the insertion for heart cath earlier this week. D/w Dr. Eric ([facility]) re drainage - suspect ascites.. ED course: Awaiting call from performance management consultant and US to determine if the patient has any ascites to drain. 18:32 Patient medically screened. kdr 12/19 13:55 Order name: CBC with Diff kdr 12/19 13:55 Order name: Chem 7; Complete Time: 15:13 kdr 12/19 13:55 Order name: Urine Dipstick--Ancillary (enter results); Complete Time: 15:13 bd 12/19 14:54 Order name: CREATININE WHOLE BLOOD; Complete Time: 15:13 EDMS 12/19 15:46 Order name: CBC Smear Scan; Complete Time: 16:00 EDMS 12/19 15:13 Order name: US Abdomen Limited kdr Administered Medications: No medications were administered Disposition: 12/20/19 18:32 Discharged to Home. Impression: Fluid leak from right groin catheter insertion site (non-infectious). - Condition is Stable. - Blank Diagnosis Outline, Medication Reconciliation Form, Thank You Letter form. - Follow up: Private Physician; When: 2 - 3 days; Reason: If symptoms return, Further diagnostic work-up, Recheck today's complaints, Continuance of care, Re-evaluation by your physician. - Problem is an ongoing problem. - Symptoms have improved. Signatures: Dispatcher [employer] [facility] Joce Maciel MD MD kdr Bhavna Beach RN RN Can Crum RN RN jb4 Corrections: (The following items were deleted from the chart) 14:48 13:56 Urograph IVP+RAD.RAD.BRZ ordered. [facility] 19:42 18:32 12/20/2019 18:32 Discharged to Home. Impression: Fluid leak from right groin jb4 catheter insertion site (non-infectious). Condition is Stable. Forms are Medication Reconciliation Form, Thank You Letter, Antibiotic Education, Prescription Opioid Use. Follow up: Private Physician; When: 2 - 3 days; Reason: If symptoms return, Further diagnostic work-up, Recheck today's complaints, Continuance of care, Re-evaluation by your physician. Problem is an ongoing problem. Symptoms have improved. kdr
--- NOTE | 2019-12-20 18:33 | ER ---
Nurse's Notes [facility] Name: Jordyn Manzano Age: 69 yrs Sex: Female : 1950 Arrival Date: 12/20/2019 Time: 11:53 Bed 14 Private MD: Diagnosis: Fluid leak from right groin catheter insertion site (non-infectious) Presentation: 12/19 12:07 Chief complaint: Patient states: Clear drainage from right groin site insertion since hb Monday. Saturates 4 pads per day and her clothes at times. No known fever. Coronavirus screen: Proceed with normal triage. Patient denies a cough. Patient reports shortness of breath or difficulty breathing. Patient denies measured and/or subjective temperature greater than 100.4F prior to today's visit. Patient denies travel on a cruise ship or to a country the [facility] currently lists as an affected area. Patient denies contact with known and/or suspected case of COVID-19. Ebola Screen: Patient denies travel to an Ebola-affected area in the 21 days before illness onset. Initial Sepsis Screen: Does the patient meet any 2 criteria? No. Patient's initial sepsis screen is negative. Risk Assessment: Do you want to hurt yourself or someone else? Patient reports no desire to harm self or others. Onset of symptoms was December 16, 2019. 12:07 Method Of Arrival: Ambulatory hb 12:07 Acuity: PERI 3 hb 12:40 Initial Sepsis Screen: Does the patient have a suspected source of infection? Yes: sv Other: groin insertion site. Historical: - Allergies: 12:12 No Known Allergies; hb - PMHx: 12:12 Diabetes - NIDDM; High Cholesterol; Hypertension; Cirrhosis; hb - PSHx: 12:12 Cholecystectomy; heart cath with stent placement; hb - Immunization history:: Flu vaccine is not up to date. - Social history:: Smoking status: Patient denies any tobacco usage or history of. Patient/guardian denies using alcohol, street drugs, tobacco products. Screenin:40 Abuse screen: Denies threats or abuse. Denies injuries from another. Nutritional sv screening: No deficits noted. Tuberculosis screening: No symptoms or risk factors identified. Fall Risk None identified. Assessment: 14:00 General: Appears in no apparent distress. comfortable, well developed, Behavior is sv calm, cooperative, appropriate for age. Pain: Denies pain. Neuro: Level of Consciousness is awake, alert, obeys commands, Oriented to person, place, time, situation, Moves all extremities. Respiratory: Airway is patent Respiratory effort is even, unlabored, Respiratory pattern is regular, symmetrical. Derm: Skin is pink, warm \T\ dry. Pt had a cardiac cath procedure done on Monday with a right groin insertion sight. Reports that the sight has been leaking since a couple of days ago. Drainage appears clear and thin. 15:49 Reassessment: Patient appears in no apparent distress at this time. No changes from sv previously documented assessment. Patient and/or family updated on plan of care and expected duration. Pain level reassessed. Patient is alert, oriented x 3, equal unlabored respirations, skin warm/dry/pink. 15:59 Reassessment: Dr Maciel at the bedside. sv 16:54 Reassessment: Patient appears in no apparent distress at this time. No changes from sv previously documented assessment. Patient and/or family updated on plan of care and expected duration. Pain level reassessed. Patient is alert, oriented x 3, equal unlabored respirations, skin warm/dry/pink. 18:00 Reassessment: Patient appears in no apparent distress at this time. Patient and/or sv family updated on plan of care and expected duration. Pain level reassessed. Patient is alert, oriented x 3, equal unlabored respirations, skin warm/dry/pink. 19:10 Reassessment: Patient appears in no apparent distress at this time. Patient and/or jb4 family updated on plan of care and expected duration. Pain level reassessed. Patient is alert, oriented x 3, equal unlabored respirations, skin warm/dry/pink. Vital Signs: 12:07 BP 125 / 37; Pulse 81; Resp 18; Temp 97.7; Pulse Ox 98% ; Weight 82.55 kg; Height 5 ft. hb 0 in. (152.40 cm); Pain 10/10; 14:14 BP 111 / 48; Pulse 80; Resp 16; Pulse Ox 99% ; sv 15:19 BP 131 / 54; Pulse 78; Resp 16; Pulse Ox 100% ; sv 16:00 BP 139 / 54; Pulse 77; Resp 16; Pulse Ox 100% ; sv 16:56 BP 126 / 52; Pulse 80; Resp 16; Pulse Ox 100% ; sv 18:00 BP 122 / 53; Pulse 77; Resp 16; Pulse Ox 100% ; sv 19:30 BP 124 / 58; Pulse 76; Resp 18; Pulse Ox 100% on R/A; jb4 12:07 Body Mass Index 35.54 (82.55 kg, 152.40 cm) hb ED Course: 11:53 Patient arrived in ED. fj1 12:12 Triage completed. hb 12:13 Arm band placed on Patient placed in an exam room, on a stretcher. hb 12:17 Liza Shah, RN is Primary Nurse. sv 12:38 Joce Maciel MD is Attending Physician. kdr 12:40 Patient has correct armband on for positive identification. Bed in low position. Call sv light in reach. Adult w/ patient. Door closed. Head of bed elevated. 13:20 ED physician to see patient. sv 14:00 Inserted saline lock: 20 gauge in left antecubital area, using aseptic technique. Blood sv collected. Flushed left antecubital with 5 ml normal saline. 14:12 Dressings: 4X4s X 1; right femoral area. sv 14:23 Notified ED physician of a critical lab result(s). HGB 7.9. hb 15:34 Awaiting radiology results. Awaiting re-evaluation by ER provider. sv 15:34 US Abdomen Limited Sent. sv 16:54 Patient moved back from ultrasound. sv 16:55 Awaiting radiology results. sv 17:05 US Abdomen Limited In Process Unspecified. EDMS 19:09 Report given to Gareth HANEY. sv 19:21 Primary Nurse role handed off by Liza Shah, MEDINA sv 19:40 No provider procedures requiring assistance completed. IV discontinued, intact, jb4 bleeding controlled, No redness/swelling at site. Pressure dressing applied. 19:42 Can Crum, RN is Primary Nurse. jb4 Administered Medications: No medications were administered Outcome: 18:32 Discharge ordered by . kdr 19:40 Discharged to home via wheelchair, with family. jb4 19:40 Condition: stable 19:40 Discharge instructions given to patient, family, Instructed on discharge instructions, follow up and referral plans. wound care, Demonstrated understanding of instructions, follow-up care, wound care. 19:42 Patient left the ED. jb4 Signatures: Dispatcher [employer] EDMS Ozzie Shahhanie, RN RN sv Joce Maciel MD MD [facility] Bhavna Beach RN RN Can Crum RN RN jb [place] fj1 Corrections: (The following items were deleted from the chart) 12:13 12:07 Chief complaint: Patient states: Clear drainage from right groin site insertion hb since Monday. hb 17:00 16:56 Pulse 80bpm; Resp 16bpm; Pulse Ox 100%; sv sv
--- NOTE | 2019-12-20 20:01 | RAD REPORT ---
EXAM DESCRIPTION: US - Abdomen Exam Limited - 12/20/2019 5:05 pm CLINICAL HISTORY: Right groin Abdominal pain COMPARISON: ABDOMINAL EXAM COMPLETE dated 05/19/2010 FINDINGS: Real-time sonography of the abdomen was performed to assess for potentially drainable asci michel collections. The volume of fluid identified in the abdomen was insufficient for paracentesis.
[2019-12-20 20:23] VITALS: TEMP 97.7
[2019-12-20 20:25] VITALS: O2SAT 100
[2019-12-20 20:30] VITALS: BP 122/53
== END 2019-12-20 19:42 | disposition home or self-care (01) ==
LOC: ER 11:51
DX: T82.897A Other specified complication of cardiac prosthetic devices, implants and grafts, initial encounter (principal)
CPT/HCPCS: 36415; 76705; 80048; 81003; 82565; 85025; 99284